=== PATIENT | male | born 1960 | race Caucasian/White ===

== ENCOUNTER 2016-07-20 13:26 | Emergency (ER) | payer MEDICAID, OTHER, SELFPAY ==
[~2016-07-20] VITALS: Ht 170.2 cm; Wt 74.8 kg
[2016-07-20] MEDS ORDERED: NS 1,000 ML IV SCH (13:42)
[2016-07-20 14:27] LABS: VENOUS BASE EXCESS -4.7 (-2.0-2.0); VENOUS O2 SATURATION 40.7 % (60.0-80.0); VENOUS PARTIAL PRESSURE CO2 44.3 mmHg (38.0-50.0); VENOUS PARTIAL PRESSURE O2 25.4 mmHg (30.0-50.0); VENOUS STANDARD HCO3 19.1 MEQ/L
[2016-07-20 14:43] LABS: BASO % 0.5 % (0.0-1.0); EOS % 0.8 % (0.0-3.0); LARGE UNSTAINED CELL # 0.1 K/mm3 (0.0-0.4); LARGE UNSTAINED CELL % 1.2 % (0.0-4.0); LYMPH # 1.1 K/mm3 (1.5-4.5); LYMPH % 15.4 % (24.0-44.0); MEAN CORPUSCULAR HEMOGLOBIN 32.9 pg (27.0-33.0); MEAN CORPUSCULAR HGB CONC 33.9 g/dl (32.0-36.5); MONO # 0.4 K/mm3 (0.0-0.8); MONO % 5.6 % (0.0-5.0); NEUTROPHILS # 5.3 K/mm3 (1.8-7.7); NEUTROPHILS % 76.5 % (36.0-66.0); PLATELET COUNT, AUTOMATED 146 k/mm3 (150-450); RED CELL DISTRIBUTION WIDTH 12.8 % (11.5-14.5)
[2016-07-20 14:57] LABS: ALBUMIN 3.7 GM/DL (3.2-5.2); ALKALINE PHOSPHATASE 118 U/L (45-117); ALT/SGPT 65 U/L (12-78); ANION GAP 14 MEQ/L (8-16); AST/SGOT 68 U/L (15-37); BILIRUBIN,DIRECT 0.5 MG/DL (0.0-0.2); BLOOD UREA NITROGEN 16 MG/DL (7-18); CALCIUM LEVEL 9.7 MG/DL (8.5-10.1); CARBON DIOXIDE LEVEL 22 MEQ/L (21-32); CHLORIDE LEVEL 103 MEQ/L (98-107); CREATININE FOR GFR 0.82 MG/DL (0.70-1.30); GLOMERULAR FILTRATION RATE > 60.0 (>56); GLUCOSE, FASTING 86 MG/DL (70-105); SODIUM LEVEL 139 MEQ/L (136-145); TOTAL PROTEIN 7.4 GM/DL (6.4-8.2)
--- NOTE | 2016-07-20 15:13 | ECGEPIP ---
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
[2016-07-20] MEDS ORDERED: dexameTHASONE 20 MG/5 ML VIAL (J1100) IV ONE (15:15)
[2016-07-20] MEDS ORDERED: FAMOTIDINE IV BAG 20 MG in APPROPRIATE DILUENT 1 EA IV ONE (15:15)
--- NOTE | 2016-07-20 15:15 | CR.PDOC ---
General Reason for Consultation/CC The patient is a 56-year-old male admitted with a reason for visit of Unresponsive. History of Present Illness HISTORY OF PRESENT ILLNESS: Neurosurgery service has been called to assess 56 yo male well-known to the ED from previous visits for mass lesion in his cerebellum. Patient was found today on the floor unconscious. Patient has no complaints and would like to be discharged home. ALLERGIES: Please see below. HOME MEDICATIONS: Please see below. SOCIAL HISTORY: Marital status and/or living arrangements: lives alone, no family nearby Employment: on disability PHYSICAL EXAMINATION: VITAL SIGNS: Please see below. GENERAL APPEARANCE: cachetic, unkempt, and disheveled. NEUROLOGICAL: alert an oriented x3. Normal speech. KHADAR. Able to move all his limbs. Rest of exam is difficult to perform because of uncooperative patient. LABORATORY DATA: Please see below. NEUROIMAGING: noncontrast CT of brain showed around 3cm mass lesion in R cerebellum hemisphere with significant mass effect and edema and deviation of the 4th ventricle. There is a hydrocephalus compared to his previous CT scan. CXR: There are multiple nodular lesions. IMPRESSION: 1. Cerebellar metastasis 2. Obstructive hydrocephalus PLAN/RECOMMENDATIONS: Admit to ICU Consult hospitalist for medical management. MRI with and without contrast with stealth protocol (specifically 1 mm slices, please). Decadron 10 mg IV x1, followed by 4mg IV q8 hrs Ranitidine 150mg PO BID Zofran 4mg IV q [address] chest and abd with and without contrast for staging. Explained to the patient neuroimaging findings and proposed for him managed plan as above. The patient declined any help and wants to go home at this time. Suggestion: social media strategist consult and psych consult to assess mental competency and depression. Thank you for the consultation. Dr Irena Morse, RPA-C Vital Signs/I&O Vital Signs Date Time Temp Pulse Resp B/P (MAP) Pulse Ox O2 Delivery O2 Flow Rate FiO2 07/20/16 13:59 97.8 88 20 153/99 (117) 96 Room Air Laboratory Data 24H Labs Laboratory Tests 2 07/20/16 14:09: White Blood Count 7.0, Red Blood Count 4.97, Hemoglobin 16.3, Hematocrit 48.2, Mean Corpuscular Volume 97.0H, Mean Corpuscular Hemoglobin 32.9, Mean Corpuscular Hemoglobin Concent 33.9, Red Cell Distribution Width 12.8, Platelet Count 146L, Neutrophils (%) (Auto) 76.5H, Lymphocytes (%) (Auto) 15.4L, Monocytes (%) (Auto) 5.6H, Eosinophils (%) (Auto) 0.8, Basophils (%) (Auto) 0.5 , Neutrophils # (Auto) 5.3, Lymphocytes # (Auto) 1.1L, Monocytes # (Auto) 0.4, Eosinophils # (Auto) 0.0, Basophils # (Auto) 0.0, Large Unclassified Cells % 1.2 , Large Unclassified Cells # 0.1, Blood Gas Bicarbonate Standard 19.1, Venous Blood pH 7.306L, Venous Blood Partial Pressure CO2 44.3, Venous Blood Partial Pressure O2 25.4L, Venous Blood Total Carbon Dioxide 23.0L, Venous Blood HCO3 21.6L, Venous Blood Oxygen Saturation 40.7L, Venous Blood Base Excess -4.7L, Lactic Acid Level 1.5, Ammonia < 10 CBC/BMP Laboratory Tests 07/20/16 14:09 Red Blood Count 4.97, Mean Corpuscular Volume 97.0 H, Mean Corpuscular Hemoglobin 32.9, Mean Corpuscular Hemoglobin Concent 33.9, Red Cell Distribution Width 12.8, Neutrophils (%) (Auto) 76.5 H, Lymphocytes (%) (Auto) 15.4 L, Monocytes (%) (Auto) 5.6 H, Eosinophils (%) (Auto) 0.8, Basophils (%) ( Auto) 0.5, Neutrophils # (Auto) 5.3, Lymphocytes # (Auto) 1.1 L, Monocytes # ( Auto) 0.4, Eosinophils # (Auto) 0.0, Basophils # (Auto) 0.0 Microbiology Microbiology 07/20/16 Blood Culture, Received Pending Allergies Coded Allergies: No Known Allergies (Unverified , 07/20/16) LIANET MORSE PA-C July 20, 2016 15:15
[2016-07-20 16:06] VITALS: BP 167/91
[2016-07-20] MEDS ORDERED: DEXA4TA PO (16:07)
[2016-07-20] MEDS ORDERED: RANI75TA9 PO (16:07)
--- NOTE | 2016-07-20 16:24 | REP ---
CT study of the brain without contrast: History: Altered mental status. Comparison CT study is from 09/30/2014. CT findings: There is a large mass in the posterior fossa in the right mid cerebellum. This mass lesion measures 4.0 x 3.3 x 3.2 cm.. There is surrounding vasogenic edema. There is considerable mass effect in the posterior fossa. Displacement of the fourth ventricle to the left and narrowing of the fourth ventricle. The bill is compressed from posterior. There is upward transtentorial herniation at the tentorial notch. The vermis is displaced quite a bit to the left. There is no evidence of hemorrhage. At the midbrain there is some subtle mass effect on the quadrigeminal plate cistern which is effaced on the right. There is new hydrocephalus with moderate dilation of the lateral and third ventricles and some periventricular low density consistent with transependymal resorption adjacent to the lateral ventricles is seen. No other intracranial mass lesion is evident. There is some diffuse cerebral atrophy as before. Vascular calcification is noted. There are mucosal thickening changes in the sphenoid, right maxillary, and to a lesser extent ethmoid sinuses. No bony calvarial lesion is seen. Impression: New 4 cm mass in the right cerebellum with considerable posterior fossa mass effect and obstructive hydrocephalous and evidence of upward transtentorial herniation. No evidence of hemorrhage or infarction. Primary versus metastatic malignancy suspected. The findings were telephoned to the referring provider at the time of this dictation. Signed by Jeyson Riojas MD 07/20/2016 04:41 P
--- NOTE | 2016-07-20 16:26 | REP ---
Portable chest x-ray: Sitting AP view: History: Altered mental status. Comparison study: 02/27/2016. Findings: EKG monitoring electrodes overlie the chest. The heart is not enlarged. The aorta is slightly tortuous. The left lung is clear. On the right there is a hazy new opacity overlying the anterior first thoracic rib. I suspect infiltrate or mass lesion in the right apex. Right lung is otherwise clear. Impression: Hazy opacity in the right lung apex, question mass lesion over lying of the right first rib. Otherwise no acute disease. Signed by Jeyson Riojas MD 07/20/2016 04:41 P
== END 2016-07-20 16:42 | disposition left against medical advice (07) ==
LOC: M ED 14:24
DX: C34.90 Malignant neoplasm of unspecified part of unspecified bronchus or lung (principal); G93.9 Disorder of brain, unspecified; F17.200 Nicotine dependence, unspecified, uncomplicated

== ENCOUNTER 2016-08-20 13:26 | Emergency (ER) | payer MEDICAID, OTHER, SELFPAY ==
[~2016-08-20] VITALS: Ht 170.2 cm; Wt 77.1 kg
[~2016-08-20 13:26] MED LIST: DEXA4TA PO; RANI75TA9 PO
[2016-08-20 15:01] LABS: MEAN CORPUSCULAR HEMOGLOBIN 33.2 pg (27.0-33.0); MEAN CORPUSCULAR HGB CONC 34.2 g/dl (32.0-36.5); MEAN CORPUSCULAR VOLUME 97.1 fl (80.0-96.0); RED CELL DISTRIBUTION WIDTH 13.5 % (11.5-14.5); WHITE BLOOD COUNT 6.3 K/mm3 (4.0-10.0)
[2016-08-20 15:20] LABS: ALBUMIN 3.5 GM/DL (3.2-5.2); ALKALINE PHOSPHATASE 126 U/L (45-117); ALT/SGPT 47 U/L (12-78); ANION GAP 9 MEQ/L (8-16); AST/SGOT 45 U/L (15-37); BILIRUBIN,DIRECT 0.5 MG/DL (0.0-0.2); BILIRUBIN,TOTAL 1.1 MG/DL (0.2-1.0); BLOOD UREA NITROGEN 28 MG/DL (7-18); CALCIUM LEVEL 9.7 MG/DL (8.5-10.1); CARBON DIOXIDE LEVEL 28 MEQ/L (21-32); CHLORIDE LEVEL 99 MEQ/L (98-107); CREATININE FOR GFR 0.87 MG/DL (0.70-1.30); GLOMERULAR FILTRATION RATE > 60.0 (>56); GLUCOSE, FASTING 94 MG/DL (70-105); POTASSIUM SERUM 3.8 MEQ/L (3.5-5.1); SODIUM LEVEL 136 MEQ/L (136-145)
--- NOTE | 2016-08-20 15:48 | REP ---
CT HEAD WITHOUT CONTRAST: HISTORY: Dizziness. COMPARISON: 07/20/2016. A mixed density hypo and slightly hyperdense mass is present in the right cerebellum. The mass measures 4.4 cm in transverse by 3.5 cm in AP dimensions and is slightly increased in size compared to the previous study. Surrounding edema is present. There is mass effect with partial effacement of the fourth ventricle. The is displacement of the fourth ventricle to the left. There is partial effacement of the left quadrigeminal plate cistern consistent with upward transtentorial herniation. Areas of decreased attentuation are present in the periventricular white matter. This represents small vessel ischemic disease. There is dilatation of the third and lateral ventricles consistent with mild hydrocephalus. The cortical sulci are dilated consistent with mild volume loss. There is no extracerebral collection. The visualized sinuses are clear. IMPRESSION: There has been a slight increase in size of the right cerebellar mass compared to the previous study. There is mass effect with upward transtentorial herniation and mild hydrocephalus. This is unchanged compared to the previous study. Signed by Weston Wynn MD 08/20/2016 04:14 P
[2016-08-20 16:00] VITALS: BP 159/72
== END 2016-08-20 16:33 | disposition left against medical advice (07) ==
LOC: EDBD 13:26 → M ED 15:01
DX: G93.9 Disorder of brain, unspecified (principal); R42 Dizziness and giddiness; W19.XXXA Unspecified fall, initial encounter; Y92.014 Private driveway to single-family (private) house as the place of occurrence of the external cause; Y93.89 Activity, other specified; Y99.8 Other external cause status; R20.0 Anesthesia of skin; F99 Mental disorder, not otherwise specified; F17.210 Nicotine dependence, cigarettes, uncomplicated; F19.10 Other psychoactive substance abuse, uncomplicated

== ENCOUNTER 2016-08-22 16:13 | Inpatient (IN) | payer MEDICAID, OTHER, SELFPAY ==
[~2016-08-22] VITALS: Ht 170.2 cm; Wt 61.2 kg
[2016-08-22] MEDS ORDERED: ONDANSETRON 4MG/2ML VIAL (J2405) IV ONE (18:00)
[2016-08-22] MEDS ORDERED: fentaNYL 100 MCG/2 ML INJECTION (J3010) IV ONE (18:00)
[2016-08-22 18:07] LABS: ANION GAP 8 MEQ/L (8-16); BLOOD UREA NITROGEN 11 MG/DL (7-18); CALCIUM LEVEL 9.4 MG/DL (8.5-10.1); CARBON DIOXIDE LEVEL 30 MEQ/L (21-32); CHLORIDE LEVEL 98 MEQ/L (98-107); CREATININE FOR GFR 0.72 MG/DL (0.70-1.30); GLOMERULAR FILTRATION RATE > 60.0 (>56); GLUCOSE, FASTING 101 MG/DL (70-105); POTASSIUM SERUM 3.9 MEQ/L (3.5-5.1); SODIUM LEVEL 136 MEQ/L (136-145)
[2016-08-22 18:10] LABS: BASO % 0.6 % (0.0-1.0); EOS # 0.1 K/mm3 (0.0-0.50); EOS % 1.1 % (0.0-3.0); LARGE UNSTAINED CELL # 0.1 K/mm3 (0.0-0.4); LARGE UNSTAINED CELL % 1.7 % (0.0-4.0); LYMPH # 1.4 K/mm3 (1.5-4.5); LYMPH % 17.9 % (24.0-44.0); MEAN CORPUSCULAR HEMOGLOBIN 33.4 pg (27.0-33.0); MEAN CORPUSCULAR HGB CONC 35.1 g/dl (32.0-36.5); MEAN CORPUSCULAR VOLUME 95.3 fl (80.0-96.0); MONO # 0.5 K/mm3 (0.0-0.8); MONO % 7.8 % (0.0-5.0); NEUTROPHILS # 4.9 K/mm3 (1.8-7.7); NEUTROPHILS % 70.9 % (36.0-66.0); PLATELET COUNT, AUTOMATED 236 k/mm3 (150-450); RED CELL DISTRIBUTION WIDTH 13.7 % (11.5-14.5)
[2016-08-22] MEDS ORDERED: ISOVUE-370 76% 100ML VIAL (Q9967) As Ordered ONE (18:21)
--- NOTE | 2016-08-22 19:30 | REPUSA ---
CLINICAL HISTORY: Cerebellar mass. TECHNIQUE: Multiple axial CT images were obtained through the brain without IV contrast material. COMPARISON: Comparison is made with a prior study dated 08/20/2016. COMMENTS: Note again is made of a right cerebellar mass measuring 4 x 3.5 cm with large amount of vasogenic lexi ma and significant local mass effect with compression of 4th ventricle. Lateral ventricles and fourth ventricle are dilated which is likely due to obstructed hydrocephalus. There is normal configuration of sella turcica. There are no intra or extra-axial collections. Ther e is no evidence of hematoma formation. No abnormal calcifications are present. There is diffuse age-appropriate cerebellar and cerebral atrophy with proportionally dilated ventricl es and cortical sulci. There are bilateral confluent periventricular and subcortical white matter hypolucencies compatible w ith chronic microvascular disease. IMPRESSION: 1. Note again is made of a right cerebellar mass measuring 4 x 3.5 cm with large amount of vasogenic edema and mass effect with compression of 4th ventricle. 2. Lateral ventricles and fourth ventricle are dilated which is likely due to obstructed hydrocephal us. 3. There is diffuse generalized parenchymal atrophy and chronic microvascular disease. 3. No significant interval change. Thank you for your kind referral of this patient. We appreciate the opportunity to participate in thi s patient's care.
--- NOTE | 2016-08-22 22:50 | REPUSA ---
CLINICAL HISTORY: History of brain carcinoma. TECHNIQUE: Multiple incremental axial, coronal and oblique images are obtained from the thoracic inle t to the upper abdomen. Intravenous contrast material was administered as per pulmonary embolism prot ocol. COMMENTS: There is excellent opacification of pulmonary arterial system without evidence for pulmonary embolism . Aorta is of normal caliber without evidence for dissection or aneurysm. There is a severe scattered upper lobe predominant emphysema is seen. There is a spiculated nodule of speculated mass noted in the right lung apex measuring approximately 2.0 x 1.5 cm, highly suspicious for malignancy. There is mild bilateral hilar lymphadenopathy noted. There is no evidence of pleural or parenchymal mass. There are no pleural effusions. The heart and great vessels are within normal limits. Images of the upper abdomen demonstrate no evidence of adrenal mass. The bony structures are free of lytic or blastic lesions. IMPRESSION: 1. No evidence for pulmonary embolism. 2. Severe scattered upper lobe predominant emphysema is seen. There is a spiculated nodule of specu lated mass noted in the right lung apex measuring approximately 2.0 x 1.5 cm, highly suspicious for m alignancy. Consider further evaluation with PET CT. 3. There is mild bilateral hilar lymphadenopathy noted. Thank you for your kind referral of this patient. We appreciate the opportunity to participate in th is patient's care.
--- NOTE | 2016-08-22 22:50 | REPUSA ---
HISTORY: Cerebellar mass. TECHNIQUE: Pre- and post contrast MR study of the brain was performed. COMPARISON: CT study of the brain done earlier this evening. FINDINGS: There is a peripherally enhancing mass in the right cerebellar hemisphere. Central necrosis is prese nt. The mass measures, based upon the borders of enhancement, approximately 4.3 cm right to left, ap proximately 3.4 cm superiorly to inferiorly and approximately 4 cm AP. The mass is thought to more l ikely be due to metastatic disease than a primary cerebellar neoplasm Regional mass effect is presen t. There is surrounding vasogenic edema. Mild upward transtentorial herniation is present. The fou rth ventricle is compressed and displaced. There is shift of the cerbellar vermis to the left of mid line. Mild right cerebellar tonsillar herniation is present. There is evidence of moderate hydrocep halus with dilatation of the lateral and third ventricles. The cerebral aqueduct is also dilated. Periventricular T2 hyperintensity is shown. It is nonspecific. Such periventricular T2 hyperintensi ty could reflect chronic ischemic small vessel white matter change. However, given evidence of hydro cephalus, it may reflect transependymal CSF migration related to the obstructive hydrocephalus. A sm all amount of nonspecific T2 hyperintensity is present within the bill. It could reflect chronic isc hemic white matter change and/or edema. Edema from the right cerebellar mass extends into the right c erebellar peduncles. There is some compression and distortion of the brainstem. There is reduction in the size of the pre-pontine cistern, related to anterior displacement of the brainstem. No findings suspicious for acute brain infarction are identified. There is no evidence of a subdural hematoma. No evidence of metastatic disease is identified supratentorially. No evidence of dural s inus thrombosis is identified. No abnormal meningeal enhancement is seen. Areas of mild sinus mucosal thickening are present. The flow voids for the intracranial carotid [place] and the basilar artery are present. No abnormal intraconal or extraconal soft tissue masses are seen in the orbits. Deviation of the nasal septum is incidentally noted. IMPRESSION: 1. Right cerebellar mass lesion, thought to most likely be due to metastatic disease. 2. Regional mass effect with surrounding vasogenic edema. 3. Obstructive hydrocephalus. 4. Mild upward transtentorial herniation and right cerebellar tonsillar herniation. Thank you for your kind referral of this patient. We appreciate the opportunity to participate in thi s patient's care.
--- NOTE | 2016-08-22 23:20 | REPUSA ---
CLINICAL HISTORY: Brain CA. No medicare. TECHNIQUE: Multiple axial CT images were obtained through the abdomen and pelvis after administratio n of intravenous contrast material. COMMENTS: The liver demonstrates 6 mm hypodensity at the dome which may represent small cyst vs hemangioma. It is otherwise of uniform attenuation without mass or defect. The gallbladder is within normal limits. There is no intrahepatic or extrahepatic biliary ductal dilatation. The spleen is normal. The [place] is of normal contour and attenuation characteristics. Both kidneys demonstrate prompt and equal nephrograms. The kidneys are normal in size, shape and con figuration. There is no evidence of renal or ureteral mass. No renal or ureteral calculi are identi fied. There is no hydroureter or hydronephrosis. No evidence for appendicitis. There is evidence of circumferential wall thickening along the duodenu m and jejunum compatible with enteritis. Small fat containing umbilical hernia is seen. No evidence for small or large bowel obstruction. Sigmoid diverticulosis is seen. No evidence of diverticuliti s. There is no evidence of abdominal ascites or lymphadenopathy. There is no evidence of intrinsic or extrinsic bladder mass. There is no pelvic ascites or lymphaden opathy. The bony structures are free of lytic or blastic lesions. Prostate gland is moderately enlarged contains calcification in its base. IMPRESSION: 1. Evidence of circumferential wall thickening along the duodenum and jejunum compatible with enterit is. 2. Small fat containing umbilical hernia is seen. 3. Sigmoid diverticulosis. 4. 6 mm hypodensity at the hepatic dome which may represent small cyst vs hemangioma. Thank you for your kind referral of this patient. We appreciate the opportunity to participate in thi s patient's care.
[2016-08-22] MEDS ORDERED: IPRATROPIUM 0.5MG/ALBUTEROL 2.5MG INH SOL UD 3ML (DUONEB)(J7620) NEB ONE (23:45)
[2016-08-23] VITALS (20 sets, daily range): BP systolic 83–163; BP diastolic 58–158
[2016-08-23] MEDS ORDERED: ONDANSETRON 4MG/2ML VIAL (J2405) IV PRN (01:00)
[2016-08-23] MEDS ORDERED: ACETAMINOPHEN TAB 650MG DOSE (2X325MG) PO PRN (01:00)
[2016-08-23] MEDS ORDERED: dexameTHASONE 20 MG/5 ML VIAL (J1100) As Ordered ONE (01:14)
[2016-08-23] MEDS: dexameTHASONE 20 MG/5 ML VIAL (J1100) IV ONE ×2 (01:20→02:00)
[2016-08-23] MEDS ORDERED: dexameTHASONE 20 MG/5 ML VIAL (J1100) IV ONE (02:15)
[2016-08-23] MEDS ORDERED: HEPARIN SOD (PORCINE) 5000 UNITS/ML VIAL SC SCH (06:00)
--- NOTE | 2016-08-23 07:06 | HPEPDOC ---
General Date of Admission Aug 23, 2016 at 00:59 Other Providers None Attending Physician: JM THEODORE MD Chief Complaint The patient is a 56-year-old male admitted with a reason for visit of Altered Mental State,Neoplam Of Brain. Source: Patient Exam Limitations: No limitations Timing/Duration: Week(s) Severity: Severe Associated Symptoms: Loss of appetite, Malaise History of Present Illness 56-year-old male with no PCP and no home medications presented to the emergency room for mental confusion. He had this intermittently for past couple of weeks and getting generalized weakness, lethargic. Home Medications No Active Prescriptions or Reported Meds Allergies Coded Allergies: No Known Allergies (Unverified , 07/20/16) Past Medical History Medical History None Surgical History Leg surgery Family History Significant Family History: No pertinent family hx Social History * Smoker: less than 1 pack/day Alcohol: heavy Drugs: marijuana Recent Travel/Sick Contacts: Denies: Recent travel, Recent sick contacts Review of Symptoms Constitutional: Reports: Malaise, Weakness, Fatigue, Weight Loss, Lethargy, Denies: Chills, Fever, Night Sweats Eyes: Denies: Pain, Vision change ENT: Reports: Head Aches, Denies: Ear Pain, Dysphagia Skin: Denies: Rash, Lesions, Breakdown Pulmonary: Denies: Dyspnea, Cough Cardiovascular: Denies: Chest Pain, Palpitations, Orthopnea, Paroxysmal Noc. Dyspnea, Lt Headedness Gastrointestinal: Denies: Nausea, Vomiting, Abdominal Pain, Diarrhea Genitourinary: Denies: Dysuria, Frequency, Incontinence, Retention Hematologic: Denies: Bruising, Bleeding Excessively Musculoskeletal: Denies: Neck Pain, Back Pain, Joint Pain, Muscle Pain, Spasms Neurological: Denies: Weakness, Numbness, Change in speech, Confusion Psych: Reports: Mood Normal, Denies: Depression, Memory Issues Physical Examination General Exam: Positive: Alert, No Acute Distress Eye Exam: Positive: PERRLA, Conjunctiva & lids normal, EOMI, Negative: Sclera icteric ENT Exam: Positive: Atraumatic, Mucous membr. moist/pink Neck Exam: Positive: Supple, Negative: JVD, thyromegaly Chest Exam: Positive: Clear to auscultation, Normal air movement Heart Exam: Positive: Rate Normal, Regular Rhythm, Normal S1, Normal S2, Negative: Murmurs, Rubs Telemetry: Positive: No significant arrhythmia Abdomen Exam: Positive: Normal bowel sounds, Soft, Negative: Tenderness, Hepatospenomegaly Extremity Exam: Positive: Normal pulses, Negative: Clubbing, Cyanosis, Edema Skin Exam: Positive: Nl turgor and temperature, Negative: Breakdown, Lesion Neuro Exam: Positive: Normal Gait, Normal Speech Psych Exam: Positive: Other (not oriented poorly following commands) Vital Signs Vital Signs Date Time Temp Pulse Resp B/P (MAP) Pulse Ox O2 Delivery O2 Flow Rate FiO2 08/23/16 06:01 80 12 115/63 (80) 95 Room Air 08/23/16 04:01 98.1 Laboratory Data Labs 24H Laboratory Tests 2 08/22/16 16:46: White Blood Count 7.0, Red Blood Count 4.87, Hemoglobin 16.3, Hematocrit 46.4, Mean Corpuscular Volume 95.3, Mean Corpuscular Hemoglobin 33.4H, Mean Corpuscular Hemoglobin Concent 35.1, Red Cell Distribution Width 13.7, Platelet Count 236, Neutrophils (%) (Auto) 70.9H, Lymphocytes (%) (Auto) 17.9L, Monocytes (%) (Auto) 7.8H, Eosinophils (%) (Auto) 1.1, Basophils (%) (Auto) 0.6 , Neutrophils # (Auto) 4.9, Lymphocytes # (Auto) 1.4L, Monocytes # (Auto) 0.5, Eosinophils # (Auto) 0.1, Basophils # (Auto) 0.0, Large Unclassified Cells % 1.7 , Large Unclassified Cells # 0.1, Anion Gap 8, Glomerular Filtration Rate > 60.0 , Blood Urea Nitrogen 11#, Creatinine 0.72, Sodium Level 136, Potassium Level 3.9, Chloride Level 98, Carbon Dioxide Level 30, Calcium Level 9.4 CBC/BMP Laboratory Tests 08/22/16 16:46 Red Blood Count 4.87, Mean Corpuscular Volume 95.3, Mean Corpuscular Hemoglobin 33.4 H, Mean Corpuscular Hemoglobin Concent 35.1, Red Cell Distribution Width 13.7, Neutrophils (%) (Auto) 70.9 H, Lymphocytes (%) (Auto) 17.9 L, Monocytes (% ) (Auto) 7.8 H, Eosinophils (%) (Auto) 1.1, Basophils (%) (Auto) 0.6, Neutrophils # (Auto) 4.9, Lymphocytes # (Auto) 1.4 L, Monocytes # (Auto) 0.5, Eosinophils # (Auto) 0.1, Basophils # (Auto) 0.0, Calcium Level 9.4 Assessment/Plan 56-year-old male with an obesity and no home medications presented with altered mental status upon to have muscle in the lung and the brain Problems (1) Tobacco abuse Problem Text: Continue with nicotine patch (2) Alcohol withdrawal Problem Text: Continuously CIWA protocol (3) Neoplasm of brain causing mass effect on adjacent structures Status: Acute Problem Text: CT scan of the brain showed large cerebellar mass 4 x 2.5 cm encompassing fourth ventricle. The vasogenic edema and mass effect. Neurosurgery was consulted. Patient was started on IV Decadron and will be taken to the OR for decompression (4) Lung cancer Problem Text: Follow-up oncology Plan / VTE VTE Prophylaxis Ordered?: Yes Plan IVF: Initiate Diet: Continue Current Activity: Continue Current Anticipated Discharge: Home KYRA WHALEY MD Aug 23, 2016 07:06
[2016-08-23] MEDS ORDERED: LORazepam 2 MG TAB PO PRN (07:15)
[2016-08-23] MEDS: NICOTINE 14 MG/24 HR TRANSDERMAL TD SCH (08:59)
[2016-08-23] MEDS: MULTIVITAMINS/MINERALS THERAP 1 TAB PO SCH (09:00)
[2016-08-23] MEDS: THIAMINE 100 MG TAB PO SCH ×2 (09:00→21:02)
[2016-08-23] MEDS: FOLIC ACID 1 MG TAB PO SCH (09:00)
[2016-08-23] MEDS ORDERED: SLF 3 ML SYR IV PRN (09:15)
[2016-08-23] MEDS: SLF 3 ML SYR IV SCH ×2 (14:00→21:02)
[2016-08-24] VITALS (25 sets, daily range): BP systolic 123–174; BP diastolic 57–88
[2016-08-24 05:10] LABS: MEAN CORPUSCULAR HEMOGLOBIN 33.5 pg (27.0-33.0); MEAN CORPUSCULAR HGB CONC 35.4 g/dl (32.0-36.5); MEAN CORPUSCULAR VOLUME 94.7 fl (80.0-96.0); RED CELL DISTRIBUTION WIDTH 13.5 % (11.5-14.5); WHITE BLOOD COUNT 9.7 K/mm3 (4.0-10.0)
[2016-08-24] MEDS: SLF 3 ML SYR IV SCH ×3 (05:18→20:01)
[2016-08-24 05:37] LABS: ALBUMIN 2.6 GM/DL (3.2-5.2); ALBUMIN/GLOBULIN RATIO 0.81 (1.00-1.93); ALKALINE PHOSPHATASE 90 U/L (45-117); ALT/SGPT 29 U/L (12-78); ANION GAP 7 MEQ/L (8-16); AST/SGOT 19 U/L (15-37); BILIRUBIN,TOTAL 0.4 MG/DL (0.2-1.0); BLOOD UREA NITROGEN 18 MG/DL (7-18); CARBON DIOXIDE LEVEL 28 MEQ/L (21-32); CHLORIDE LEVEL 102 MEQ/L (98-107); CREATININE FOR GFR 0.64 MG/DL (0.70-1.30); GLOMERULAR FILTRATION RATE > 60.0 (>56); GLUCOSE, FASTING 147 MG/DL (70-105); POTASSIUM SERUM 4.1 MEQ/L (3.5-5.1); SODIUM LEVEL 137 MEQ/L (136-145); TOTAL PROTEIN 5.8 GM/DL (6.4-8.2)
[2016-08-24] MEDS: THIAMINE 100 MG TAB PO SCH ×2 (08:59→20:00)
[2016-08-24] MEDS: MULTIVITAMINS/MINERALS THERAP 1 TAB PO SCH (08:59)
[2016-08-24] MEDS: NICOTINE 14 MG/24 HR TRANSDERMAL TD SCH (08:59)
[2016-08-24] MEDS: FOLIC ACID 1 MG TAB PO SCH (08:59)
--- NOTE | 2016-08-24 12:12 | IPNPDOC ---
Date Seen The patient was seen on 08/24/16. Progress Note SUBJECTIVE: Patient reports that he is feeling better, he tells me that he is clear mentally he is awake alert he is oriented to person place and situation. Otherwise at this time the patient denies any specific complaints OBJECTIVE PHYSICAL EXAMINATION: VITAL SIGNS: Please see below. GENERAL: Disheveled man sitting up in bed eating breakfast she does not appear to be in acute distress HEENT: Pupils equally round reactive to light he has moist mucous membranes elevation CVP CARDIOVASCULAR: S 1 S2 regular. RESPIRATORY: Clear to auscultation. ABDOMINAL: All sounds present abdomen soft EXTREMITIES: No clubbing cyanosis or edema NEUROLOGICAL: Documented ataxia cerebellar findings needs assistance with walking LABORATORY DATA: Please see below. MICROBIOLOGY: Please see below. IMAGING: Brain MRI: 1. Right cerebellar mass lesion, thought to most likely be due to metastatic disease. 2. Regional mass effect with surrounding vasogenic edema. 3. Obstructive hydrocephalus. 4. Mild upward transtentorial herniation and right cerebellar tonsillar herniation. CT angiography of the chest:1. No evidence for pulmonary embolism. 2. Severe scattered upper lobe predominant emphysema is seen. There is a spiculated nodule of speculated mass noted in the right lung apex measuring approximately 2.0 x 1.5 cm, highly suspicious for malignancy. Consider further evaluation with PET CT. 3. There is mild bilateral hilar lymphadenopathy noted. CT of the abdomen and pelvis:1. Evidence of circumferential wall thickening along the duodenum and jejunum compatible with enteritis. 2. Small fat containing umbilical hernia is seen. 3. Sigmoid diverticulosis. 4. 6 mm hypodensity at the hepatic dome which may represent small cyst vs hemangioma. CT scan of the head:1. Note again is made of a right cerebellar mass measuring 4 x 3.5 cm with large amount of vasogenic edema and mass effect with compression of 4th ventricle. 2. Lateral ventricles and fourth ventricle are dilated which is likely due to obstructed hydrocephalus. 3. There is diffuse generalized parenchymal atrophy and chronic microvascular disease. 3. No significant interval change. DVT prophylaxis ordered?: Teds and sequentials ASSESSMENT AND PLAN: This is a 56-year-old man with brain mass highly concerning for metastatic lung cancer. PROBLEMS: 1. Brain mass: Highly concerning for metastatic lung cancer I did a lengthy discussion yesterday with an today with the patient as well as his brother I have discussed the case with Dr. Tadeo and Dr. Flores is well. The patient has previously signed himself out from the emergency room on 2 previous occasions knowing that he had a brain mass concerning for cancer, at this time he is agreed to remain admitted in the hospital and today appears to understand where he is and what is going on around him verbalizing to me that he is in the hospital in [place] because he has what is likely cancer in his brain. The patient tells me that he wants to fight and he wants undergo treatment. I do question the patient's ability to adhere to medical therapies given his long history of alcohol abuse and reported history of substance abuse the patient has no primary care provider has not shown keen interest in his health up until this point to undergo neurosurgical intervention and likely undergo radiation chemotherapy the importance of follow-up and strict adherence has been stressed and the patient reportedly today that he is agreeable and prepared to do this. Dr. Tadeo's will see the patient consultation Dr. Melara we will discuss operative intervention further with the patient and his brother. The patient expressed me his wishes to be a DNR/DNI and as such her most form was completed and placed in the chart. For the time being the patient remains on Decadron as per Dr. Flores's recommendations. Perioperative management will defer to neurosurgery. Given there is evidence of herniation I suspect she would benefit from intervention sooner rather than later 2. Left hip wound: Likely from lying down unconscious on the left side for significant amount of time wound care help is greatly greatly appreciated. Continue with collagenase 3. Alcohol abuse: Sling counseling offered the patient is currently on thiamine and folic acid and a multivitamin we're monitoring him for withdrawal symptoms or he has not exhibited any up until this point. 4. Tobacco abuse: Cessation counseling offered the patient is using a NicoDerm patch at this time 5. Substance abuse: Cessation counseling offered DISPOSITION: We'll continue to attempt to coordinate appropriate care possible surgical intervention with outpatient hematology oncology follow-up and likely radiation therapy referral. VS, I&O, 24H, Fishbone Vital Signs/I&O Vital Signs Date Time Temp Pulse Resp B/P (MAP) Pulse Ox O2 Delivery O2 Flow Rate FiO2 08/24/16 08:00 76 156/84 08/24/16 08:00 97.7 16 98 Room Air I&O- Last 24 Hours up to 6 AM 08/24/16 06:00 Intake Total 1260 ml Output Total 300 ml Balance 960 ml Laboratory Data 24H LABS Laboratory Tests 2 08/24/16 04:52: Anion Gap 7L, Glomerular Filtration Rate > 60.0, Blood Urea Nitrogen 18#, Creatinine 0.64L, Sodium Level 137, Potassium Level 4.1, Chloride Level 102, Carbon Dioxide Level 28, Calcium Level 9.0, Aspartate Amino Transf (AST/SGOT) 19 , Alanine Aminotransferase (ALT/SGPT) 29, Alkaline Phosphatase 90, Total Bilirubin 0.4, Total Protein 5.8L, Albumin 2.6L, Albumin/Globulin Ratio 0.81L 08/24/16 08:25: Urine Amphetamines Screen NEGATIVE, Urine Benzodiazepines Screen NEGATIVE, Urine Opiates Screen NEGATIVE, Urine Methadone Screen NEGATIVE, Urine Barbiturates Screen NEGATIVE, Urine Phencyclidine Screen NEGATIVE, Urine Cocaine Metabolite Screen NEGATIVE, Urine Cannabinoids Screen NEGATIVE CBC/BMP Laboratory Tests 08/24/16 04:52 Red Blood Count 4.15 L, Mean Corpuscular Volume 94.7, Mean Corpuscular Hemoglobin 33.5 H, Mean Corpuscular Hemoglobin Concent 35.4, Red Cell Distribution Width 13.5, Calcium Level 9.0, Aspartate Amino Transf (AST/SGOT) 19 , Alanine Aminotransferase (ALT/SGPT) 29, Alkaline Phosphatase 90, Total Bilirubin 0.4, Total Protein 5.8 L, Albumin 2.6 L JM THEODORE MD Aug 24, 2016 12:12
[2016-08-24] MEDS: SANTYL OINT 30GM TOP SCH (13:22)
--- NOTE | 2016-08-24 19:49 | CR ---
DATE OF CONSULTATION: 08/23/2016 REASON FOR CONSULTATION: Right cerebellar mass lesion with vasogenic edema and cerebellar tonsillar herniation, thought to be metastatic disease in the setting of a 2 cm right lung apex nodule and bilateral hilar adenopathy. HISTORY OF PRESENT ILLNESS: Srinivas Sánchez is a 56-year-old gentleman who was admitted for altered mental status. CT scan of the brain done on admission revealed a 4 x 2.5 cm mass encompassing the fourth ventricle with vasogenic edema. The patient is now on Decadron. In spite of his work up he had a CT scan of the chest done on 08/22/2016, to rule out pulmonary embolism and the CT angiogram revealed a 2 x 1.5 cm spiculated mass in the right lung apex suspicious for malignancy. Hematology/Oncology was consulted given the new findings and concern for metastatic primary lung adenocarcinoma with metastasis (mets) to the brain. Patient has been evaluated by Dr. Flores, Neurosurgery as well. Clinically, on evaluation patient endorses over a 50 pound weight loss in the past 6 months. He also has had decrease in his activities of daily living and change in his appetite as well. PAST MEDICAL HISTORY: None. PAST SURGICAL HISTORY: Leg surgery. HOME MEDICATIONS: None. ALLERGIES: No known drug allergies. SOCIAL HISTORY: Greater than 30 pack-year history of tobacco use. Alcohol: He drinks more than 5 drinks a day. Also, smokes marijuana as well. FAMILY HISTORY: No history of malignancy. PHYSICAL EXAMINATION: VITAL SIGNS: Pulse is 94, temperature is 99.3, blood pressure is 125/78, oxygen saturation is 95% on room air. GENERAL: He is disheveled, lying in bed in no acute distress. HEENT: No pallor or icteric sclerae. Oral mucosa is moist. Oropharynx is clear. He does have some temporal wasting with some cachexia. NECK: Supple. HEART: Regular rate and rhythm. Normal S1, S2. LUNGS: Clear bilaterally. No wheezes, rales or rhonchi. ABDOMEN: Soft, nontender and nondistended. No hepatosplenomegaly or masses. EXTREMITIES: No edema. SKIN: He has ulcerative lesion on the left lateral hip. LABORATORIES AND STUDIES: As dictated above. IMPRESSION: 56-year-old gentleman with what appears to be metastatic lung carcinoma with metastasis to the brain, specifically to his cerebellum with some pertinent findings of vasogenic edema and cerebellar herniation. DISCUSSION: I did discuss with Dr. Flores that given his central nervous system findings at this time, it would be more reasonable for an operative intervention. At that time pathology will be obtained as well and we will determine his primary malignancy. I discussed with the patient as well in detail regarding the plan of care and he is in agreement. SABRA
[2016-08-25] VITALS (16 sets, daily range): BP systolic 117–168; BP diastolic 58–95
[2016-08-25 05:01] LABS: MEAN CORPUSCULAR HEMOGLOBIN 32.8 pg (27.0-33.0); MEAN CORPUSCULAR HGB CONC 34.2 g/dl (32.0-36.5); MEAN CORPUSCULAR VOLUME 95.9 fl (80.0-96.0); RED CELL DISTRIBUTION WIDTH 13.7 % (11.5-14.5)
[2016-08-25] MEDS: SLF 3 ML SYR IV SCH ×3 (05:03→21:18)
[2016-08-25 05:25] LABS: ALBUMIN 2.7 GM/DL (3.2-5.2); ALBUMIN/GLOBULIN RATIO 0.87 (1.00-1.93); ALKALINE PHOSPHATASE 88 U/L (45-117); ALT/SGPT 38 U/L (12-78); ANION GAP 7 MEQ/L (8-16); AST/SGOT 29 U/L (15-37); BILIRUBIN,TOTAL 0.4 MG/DL (0.2-1.0); BLOOD UREA NITROGEN 16 MG/DL (7-18); CALCIUM LEVEL 8.9 MG/DL (8.5-10.1); CARBON DIOXIDE LEVEL 27 MEQ/L (21-32); CHLORIDE LEVEL 101 MEQ/L (98-107); CREATININE FOR GFR 0.67 MG/DL (0.70-1.30); GLOMERULAR FILTRATION RATE > 60.0 (>56); GLUCOSE, FASTING 138 MG/DL (70-105); POTASSIUM SERUM 3.7 MEQ/L (3.5-5.1); SODIUM LEVEL 135 MEQ/L (136-145); TOTAL PROTEIN 5.8 GM/DL (6.4-8.2)
[2016-08-25 07:44] LABS: INR 1.03
--- NOTE | 2016-08-25 07:55 | REP ---
Clinical: Preoperative assessment . Comparison: 07/20/2016 . Findings: The mediastinum and cardiac silhouette are stable and within normal limits for portable technique. Airway is patent and midline. Subtle ill-defined density in the right upper lung zone likely corresponds to suspicious nodule. The lung cage are otherwise clear without acute consolidation, effusion, or pneumothorax. Skeletal structures are intact. Impression: 1. Ill-defined opacity in the right upper lung zone may reflect underlying suspicious nodule as per CT. 2. No further acute mediastinal or pleuroparenchymal process appreciated by portable x-ray. Signed by Rafael Bran MD 08/25/2016 07:46 A
[2016-08-25] MEDS: MULTIVITAMINS/MINERALS THERAP 1 TAB PO SCH (08:40)
[2016-08-25] MEDS: FOLIC ACID 1 MG TAB PO SCH (08:40)
[2016-08-25] MEDS: THIAMINE 100 MG TAB PO SCH ×2 (08:40→21:17)
[2016-08-25] MEDS: NICOTINE 14 MG/24 HR TRANSDERMAL TD SCH (08:41)
[2016-08-25] MEDS: SANTYL OINT 30GM TOP SCH (09:07)
--- NOTE | 2016-08-25 11:50 | IPNPDOC ---
Date Seen The patient was seen on 08/25/16. Progress Note SUBJECTIVE: Patient reports that he feels well and wants to know what the holdup is for her surgery. He has no complaints OBJECTIVE PHYSICAL EXAMINATION: VITAL SIGNS: Please see below. GENERAL: Disheveled man sitting up in bed does not appear to be in acute distress HEENT: Pupils equally round reactive to light he has moist mucous membranes no elevation CVP CARDIOVASCULAR: S 1 S2 regular. RESPIRATORY: Clear to auscultation. ABDOMINAL: All sounds present abdomen soft EXTREMITIES: No clubbing cyanosis or edema LABORATORY DATA: Please see below. MICROBIOLOGY: Please see below. IMAGING: Brain MRI: 1. Right cerebellar mass lesion, thought to most likely be due to metastatic disease. 2. Regional mass effect with surrounding vasogenic edema. 3. Obstructive hydrocephalus. 4. Mild upward transtentorial herniation and right cerebellar tonsillar herniation. CT angiography of the chest:1. No evidence for pulmonary embolism. 2. Severe scattered upper lobe predominant emphysema is seen. There is a spiculated nodule of speculated mass noted in the right lung apex measuring approximately 2.0 x 1.5 cm, highly suspicious for malignancy. Consider further evaluation with PET CT. 3. There is mild bilateral hilar lymphadenopathy noted. CT of the abdomen and pelvis:1. Evidence of circumferential wall thickening along the duodenum and jejunum compatible with enteritis. 2. Small fat containing umbilical hernia is seen. 3. Sigmoid diverticulosis. 4. 6 mm hypodensity at the hepatic dome which may represent small cyst vs hemangioma. CT scan of the head:1. Note again is made of a right cerebellar mass measuring 4 x 3.5 cm with large amount of vasogenic edema and mass effect with compression of 4th ventricle. 2. Lateral ventricles and fourth ventricle are dilated which is likely due to obstructed hydrocephalus. 3. There is diffuse generalized parenchymal atrophy and chronic microvascular disease. 3. No significant interval change. DVT prophylaxis ordered?: Teds and sequentials ASSESSMENT AND PLAN: This is a 56-year-old man with brain mass highly concerning for metastatic lung cancer. PROBLEMS: 1. Brain mass: With evidence of herniation Dr. Tadeo and Dr. Flores of discussed the case the patient has requested surgery despite understanding risks. The patient has no significant cardiac history was reportedly told once the past he was hypertensive is not on any medications nor the hypertensive at this time he has history of tobacco abuse and a history of premature coronary artery disease in his father he is at moderate cardiac risk for surgery an EKG completed this morning is unremarkable here requires no further testing prior to surgery. Perioperative management all as she is related to surgery deferred to Dr. Flores tentatively planned for tomorrow. Likely metastatic lung cancer Dr. Tadeo is on the case for management of his cancer will defer to Dr. Tadeo 2. Left hip wound: Present at the time of admission continue with collagenase and wound care recommendations 3. Alcohol abuse: No signs or symptoms of withdrawal continue with multivitamin and folic acid and thiamine 4. Tobacco abuse: Cessation counseling offered the patient is using a NicoDerm patch at this time 5. Substance abuse: Cessation counseling offered DISPOSITION: At this time the patient has a fairly clear plan of care in place much of management deferred to neurosurgery and oncology I very little to add to this case at this time. Patient is a DNR/DNI VS, I&O, 24H, Fishbone Vital Signs/I&O Vital Signs Date Time Temp Pulse Resp B/P (MAP) Pulse Ox O2 Delivery O2 Flow Rate FiO2 08/25/16 10:00 100 15 117/58 (77) 94 Room Air 08/25/16 08:00 99.2 I&O- Last 24 Hours up to 6 AM 08/25/16 06:00 Intake Total 2400 ml Output Total 2125 ml Balance 275 ml Laboratory Data 24H LABS Laboratory Tests 2 08/25/16 04:37: Anion Gap 7L, Glomerular Filtration Rate > 60.0, Blood Urea Nitrogen 16, Creatinine 0.67L, Sodium Level 135L, Potassium Level 3.7, Chloride Level 101, Carbon Dioxide Level 27, Calcium Level 8.9, Aspartate Amino Transf (AST/SGOT) 29 , Alanine Aminotransferase (ALT/SGPT) 38, Alkaline Phosphatase 88, Total Bilirubin 0.4, Total Protein 5.8L, Albumin 2.7L, Albumin/Globulin Ratio 0.87L 08/25/16 07:24: Prothrombin Time 13.6, Prothromb Time International Ratio 1.03 CBC/BMP Laboratory Tests 08/25/16 04:37 Red Blood Count 4.16 L, Mean Corpuscular Volume 95.9, Mean Corpuscular Hemoglobin 32.8, Mean Corpuscular Hemoglobin Concent 34.2, Red Cell Distribution Width 13.7, Calcium Level 8.9, Aspartate Amino Transf (AST/SGOT) 29 , Alanine Aminotransferase (ALT/SGPT) 38, Alkaline Phosphatase 88, Total Bilirubin 0.4, Total Protein 5.8 L, Albumin 2.7 L JM THEODORE MD Aug 25, 2016 11:50
--- NOTE | 2016-08-25 22:22 | ECGEPIP ---
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
[2016-08-26] VITALS (16 sets, daily range): BP systolic 137–203; BP diastolic 62–91
[2016-08-26 04:33] LABS: MEAN CORPUSCULAR HEMOGLOBIN 32.9 pg (27.0-33.0); MEAN CORPUSCULAR HGB CONC 34.1 g/dl (32.0-36.5); MEAN CORPUSCULAR VOLUME 96.6 fl (80.0-96.0); RED CELL DISTRIBUTION WIDTH 13.3 % (11.5-14.5); WHITE BLOOD COUNT 12.8 K/mm3 (4.0-10.0)
[2016-08-26 04:40] LABS: INR 1.07
[2016-08-26 04:55] LABS: ALBUMIN 2.6 GM/DL (3.2-5.2); ALKALINE PHOSPHATASE 81 U/L (45-117); ALT/SGPT 52 U/L (12-78); ANION GAP 6 MEQ/L (8-16); AST/SGOT 35 U/L (15-37); BILIRUBIN,TOTAL 0.3 MG/DL (0.2-1.0); BLOOD UREA NITROGEN 18 MG/DL (7-18); CALCIUM LEVEL 8.6 MG/DL (8.5-10.1); CARBON DIOXIDE LEVEL 28 MEQ/L (21-32); CHLORIDE LEVEL 103 MEQ/L (98-107); CREATININE FOR GFR 0.72 MG/DL (0.70-1.30); GLOMERULAR FILTRATION RATE > 60.0 (>56); GLUCOSE, FASTING 140 MG/DL (70-105); POTASSIUM SERUM 3.6 MEQ/L (3.5-5.1); SODIUM LEVEL 137 MEQ/L (136-145); TOTAL PROTEIN 5.5 GM/DL (6.4-8.2)
[2016-08-26] MEDS: SLF 3 ML SYR IV SCH (06:18)
[2016-08-26] MEDS ORDERED: THROMBIN SOLN 20,000 UNITS KIT As Ordered ONE ×2 (07:17→14:20)
[2016-08-26] MEDS ORDERED: LIDOCAINE W/EPINEPHRINE 1% 20ML VIAL As Ordered ONE (07:17)
[2016-08-26] MEDS ORDERED: ROCURONIUM BROMIDE 50 MG/5 ML VIAL/SYRINGE As Ordered ONE ×2 (07:20→10:22)
[2016-08-26] MEDS ORDERED: MIDAZOLAM INJ 5 MG/ML VIAL (J2250) As Ordered ONE (07:20)
[2016-08-26] MEDS ORDERED: fentaNYL 250 MCG/5 ML INJECTION (J3010) As Ordered ONE (07:20)
[2016-08-26] MEDS ORDERED: PROPOFOL 200 MG/20 ML VIAL As Ordered ONE ×2 (07:20→13:40)
[2016-08-26] MEDS ORDERED: LIDOCAINE 2% INJ 100 MG/5 ML SDV (FOR ANES.) As Ordered ONE (07:20)
[2016-08-26] MEDS ORDERED: ceFAZolin 2 GM/D5W 50 ML IV BAG (J0690) As Ordered ONE (08:25)
[2016-08-26] MEDS ORDERED: MANNITOL 25% 12.5 GM/50 ML VIAL (J2150) As Ordered ONE (08:57)
[2016-08-26] MEDS ORDERED: FILTER 1.2 MICRON EXT SET (ADULT TPN & MANNITOL) XX ONE (09:26)
[2016-08-26] MEDS ORDERED: dexameTHASONE 4 MG/ML 1ML VIAL (J1100) As Ordered ONE (09:55)
[2016-08-26] MEDS ORDERED: PHENYLephrine HCL 500 MCG/5 ML (100MCG/ML) SYRINGE (J2370) As Ordered ONE (10:22)
[2016-08-26] MEDS ORDERED: ePHEDrine SULFATE 25 MG/5 ML(5MG/ML) SYRINGE As Ordered ONE (10:22)
[2016-08-26] MEDS ORDERED: fentaNYL 100 MCG/2 ML INJECTION (J3010) As Ordered ONE ×3 (13:40→16:28)
[2016-08-26] MEDS ORDERED: NEOSTIGMINE 1MG/ML 5 ML SYRINGE (J2710) As Ordered ONE (13:41)
[2016-08-26] MEDS ORDERED: ONDANSETRON 4MG/2ML VIAL (J2405) As Ordered ONE ×2 (13:41→16:28)
[2016-08-26] MEDS ORDERED: GLYCOPYRROLATE INJ 0.2 MG/ML 2 ML VIAL As Ordered ONE (13:41)
[2016-08-26] MEDS ORDERED: methylPREDNISolone SUSP 40 MG/ML (DEPO-medrol) VIAL (J1030) As Ordered ONE (14:25)
[2016-08-26] MEDS ORDERED: POLYSPORIN TOPICAL OINTMENT 15GM As Ordered ONE (15:36)
[2016-08-26] MEDS ORDERED: KCL 20MEQ IN D5/.45NACL 1000ML As Ordered ONE (16:21)
[2016-08-26] MEDS: fentaNYL 100 MCG/2 ML INJECTION (J3010) IV PRN ×4 (16:30→16:58)
[2016-08-26] MEDS ORDERED: KCL 20MEQ IN D5/0.45NS 1000ML 1,000 ML IV SCH (16:45)
[2016-08-26] MEDS ORDERED: MORPHINE 2 MG/ML 1ML SYRINGE IV PRN (16:45)
[2016-08-26] MEDS ORDERED: ACETAMINOPHEN 500 MG TAB PO PRN (16:45)
[2016-08-26] MEDS ORDERED: ONDANSETRON 4MG/2ML VIAL (J2405) IV PRN (16:45)
[2016-08-26] MEDS ORDERED: LABETALOL HCL 100 MG/20 ML VIAL IV SCH (16:45)
[2016-08-26] MEDS ORDERED: LR 1,000 ML IV SCH (16:45)
[2016-08-26] MEDS: dexameTHASONE 4 MG/ML 1ML VIAL (J1100) IV SCH ×2 (17:00→23:24)
[2016-08-26] MEDS: ceFAZolin SOD 1 GM in D5W MINI-BAG PLUS 50 ML IV SCH ×2 (17:00→23:24)
[2016-08-26] MEDS: ACETAMINOPHEN 500 MG TAB PO PRN (17:51)
[2016-08-26] MEDS: MORPHINE 2 MG/ML 1ML SYRINGE IV PRN (19:41)
[2016-08-27] VITALS (20 sets, daily range): BP systolic 136–178; BP diastolic 63–88
[2016-08-27] MEDS: dexameTHASONE 4 MG/ML 1ML VIAL (J1100) IV SCH ×4 (04:46→22:48)
[2016-08-27] MEDS: ceFAZolin SOD 1 GM in D5W MINI-BAG PLUS 50 ML IV SCH ×2 (04:46→12:24)
[2016-08-27] MEDS: ACETAMINOPHEN 500 MG TAB PO PRN ×4 (04:46→21:29)
[2016-08-27 05:47] LABS: MEAN CORPUSCULAR HEMOGLOBIN 33.1 pg (27.0-33.0); MEAN CORPUSCULAR HGB CONC 34.3 g/dl (32.0-36.5); MEAN CORPUSCULAR VOLUME 96.5 fl (80.0-96.0); RED CELL DISTRIBUTION WIDTH 13.6 % (11.5-14.5)
[2016-08-27 06:19] LABS: ALBUMIN 2.4 GM/DL (3.2-5.2); ALKALINE PHOSPHATASE 80 U/L (45-117); ALT/SGPT 47 U/L (12-78); ANION GAP 7 MEQ/L (8-16); AST/SGOT 33 U/L (15-37); BILIRUBIN,TOTAL 0.2 MG/DL (0.2-1.0); BLOOD UREA NITROGEN 11 MG/DL (7-18); CALCIUM LEVEL 8.1 MG/DL (8.5-10.1); CARBON DIOXIDE LEVEL 27 MEQ/L (21-32); CHLORIDE LEVEL 103 MEQ/L (98-107); CREATININE FOR GFR 0.71 MG/DL (0.70-1.30); GLOMERULAR FILTRATION RATE > 60.0 (>56); GLUCOSE, FASTING 143 MG/DL (70-105); POTASSIUM SERUM 3.8 MEQ/L (3.5-5.1); SODIUM LEVEL 137 MEQ/L (136-145); TOTAL PROTEIN 4.8 GM/DL (6.4-8.2)
[2016-08-27] MEDS ORDERED: FILTER 1.2 MICRON EXT SET (ADULT TPN & MANNITOL) XX ONE (07:59)
[2016-08-27] MEDS: NICOTINE 14 MG/24 HR TRANSDERMAL TD SCH (09:14)
[2016-08-27] MEDS: FOLIC ACID 1 MG TAB PO SCH (09:15)
[2016-08-27] MEDS: MULTIVITAMINS/MINERALS THERAP 1 TAB PO SCH (09:15)
[2016-08-27] MEDS: THIAMINE 100 MG TAB PO SCH (09:15)
--- NOTE | 2016-08-27 09:54 | IPNPDOC ---
Date Seen The patient was seen on 08/27/16. Progress Note SUBJECTIVE: Patient reports that he feels well he does not notice any difference post operatively. He has no complaints OBJECTIVE PHYSICAL EXAMINATION: VITAL SIGNS: Please see below. GENERAL: Disheveled man sitting up in bed does not appear to be in acute distress HEENT: Pupils equally round reactive to light he has moist mucous membranes no elevation CVP, surgical site dressing clean dry intact. CARDIOVASCULAR: S1 S2 regular. RESPIRATORY: Clear to auscultation. ABDOMINAL: All sounds present abdomen soft EXTREMITIES: No clubbing cyanosis or edema LABORATORY DATA: Please see below. MICROBIOLOGY: Please see below. ASSESSMENT AND PLAN: This is a 56-year-old man with herniating brain mass highly concerning for metastatic lung cancer. PROBLEMS: 1. Brain mass: s/p OR by Dr. Flores who has agreed to take over care. perioperative management/monitoring/BP goals/DVT ppx all as per Dr. Flores. Would recommend PT Home safety clearance when ok with neurosurgery prior to discharge. 2. Lung Mass: Likely Lung CA with brain met, f/u Tissue diagnosis with Dr. Tadeo and management as per Oncology 2. Left hip wound: Present at the time of admission continue with collagenase dressing patient should have referral to Dr. Salcido through new PCP at discharge 3. Alcohol abuse: No evidence of DTs continue with multivitamin and folic acid and thiamine which he may continue on discharge 4. Tobacco abuse: continue NicoDerm patch at this time and at discharge From medical perspective patient can be discharged once cleared by PT. rest as per Neurosurg. VS, I&O, 24H, [place]ylonbone Vital Signs/I&O Vital Signs Date Time Temp Pulse Resp B/P (MAP) Pulse Ox O2 Delivery O2 Flow Rate FiO2 08/27/16 08:00 99.1 84 17 139/74 (95) 96 Room Air 170/75 (106) 08/27/16 03:00 2.0 I&O- Last 24 Hours up to 6 AM 08/27/16 06:00 Intake Total 3180 ml Output Total 3090 ml Balance 90 ml Laboratory Data 24H LABS Laboratory Tests 2 08/27/16 05:33: Anion Gap 7L, Glomerular Filtration Rate > 60.0, Blood Urea Nitrogen 11, Creatinine 0.71, Sodium Level 137, Potassium Level 3.8, Chloride Level 103, Carbon Dioxide Level 27, Calcium Level 8.1L, Aspartate Amino Transf (AST/SGOT) 33, Alanine Aminotransferase (ALT/SGPT) 47, Alkaline Phosphatase 80, Total Bilirubin 0.2, Total Protein 4.8L, Albumin 2.4L, Albumin/Globulin Ratio 1.00 CBC/BMP Laboratory Tests 08/27/16 05:33 Red Blood Count 3.88 L, Mean Corpuscular Volume 96.5 H, Mean Corpuscular Hemoglobin 33.1 H, Mean Corpuscular Hemoglobin Concent 34.3, Red Cell Distribution Width 13.6, Calcium Level 8.1 L, Aspartate Amino Transf (AST/SGOT) 33, Alanine Aminotransferase (ALT/SGPT) 47, Alkaline Phosphatase 80, Total Bilirubin 0.2, Total Protein 4.8 L, Albumin 2.4 L Microbiology Microbiology 08/26/16 Fungal Smear, Received Pending 08/26/16 Fungal Culture, Received Pending 08/26/16 Gram Stain - Final, Resulted 08/26/16 Wound Culture, Resulted Pending 08/26/16 Anaerobic Culture, Resulted Pending JM THEODORE MD Aug 27, 2016 09:54
[2016-08-27] MEDS ORDERED: ISOVUE-370 76% 100ML VIAL (Q9967) As Ordered ONE (09:55)
--- NOTE | 2016-08-27 10:49 | REP ---
CT HEAD WITH AND WITHOUT CONTRAST: HISTORY: Right cerebellar mass. Contrast Isovue 370, 75 mL. COMPARISON: CT and MR date 08/22/2016. The patient is status post midline suboccipital craniectomy and resection of a right cerebellar mass. A small amount of hemorrhage and pneumocephalus are present in the right cerebellum. Surrounding edema is present. There is mass effect with partial effacement of the 4th ventricle with minimal displacement to the left. There is partial effacement of the quadrigeminal plate cistern consistent with upper transtentorial herniation. Decreased attenuation is present in the periventricular white matter consistent with transependymal edema. There is dilatation of the ventricles consistent with mild hydrocephalus that is slightly decreased compared to the previous study. There are scattered areas of pneumocephalus. There is no extracerebral collection. The visualized sinuses are clear. IMPRESSION: 1. The patient is status post resection of a right cerebellar mass. A small amount of hemorrhage and pneumocephalus is present in the right cerebellum. Surrounding edema is present with minimal displacement of the fourth ventricle to the left. 2. Mild hydrocephalus is present that is decreased compared to the previous study. ? Signed by Weston Wynn MD 08/27/2016 10:52 A
--- NOTE | 2016-08-27 14:16 | RO ---
DATE OF PROCEDURE: 08/26/2016 PREPROCEDURE DIAGNOSES: Solitary metastatic lesion cerebellum, severe brain edema, tonsillar herniation, acute hydrocephalus. POSTPROCEDURE DIAGNOSES: Solitary metastatic lesion cerebellum, severe brain edema, tonsillar herniation, acute hydrocephalus. PROCEDURE: Bilateral sub occipital craniectomy with excision of large mass, frozen section report is undifferentiated carcinoma, probably from lung. Duraplasty. SURGEON: Zaina Flores MD TELEGRAPH MESSENGER: None. ANESTHESIA: General. FINDINGS: Please see the recent hospital records for details. The patient was found in his home on the floor, confused and not able to move much of his limbs, particularly his legs after lying on the floor for about one week. His brother stopped by and asked him to call 911, who brought him to the emergency room. His workup showed a massive lesion in his cerebellum in the midline and mostly right with severe mass effect causing acute hydrocephalus and tonsillar herniation. The patient was placed on steroids. The various options and management were discussed with the patient when he was more awake, oriented and also when he was done with his family. The patient and his family were aware of the grave outlook and understood all options. The patient was seen by oncologist, who recommended biopsy of the brain before radiation therapy or chemotherapy would be initiated. Patient and family are aware of the scope, expected outcomes, sequela and all complications of proposed salvage procedure. They understood that the surgery was not curative and that the risk of surgery included, but not limited to, , quadriplegia, paralysis, loss of any or all vital bodily functions, seizure disorder, status epilepticus, PE, deep vein thrombosis (DVT), myocardial infarction, need for further surgery, failure of surgery need for multiple surgeries and/or any catastrophic sequelae. The patient may require ventriculostomy either in the same procedure or if needed down the road. The patient and family wished to proceed with surgery. DESCRIPTION OF PROCEDURE: Once in the operating room, general endotracheal anesthesia was given by the anesthesia service. The area of surgery was prepped and draped in the usual sterile fashion, after the patient laid prone on the operating room table with the head fixed in three point skeletal fixation with the head in a slightly flexed position. After adequate prep and drape, under magnification, a few inch long incision was given. Starting in the occiput region up to the C2 spinous process, deep fascia was reached. Cut edges of the blood vessels were coagulated with bipolar cautery. Ligamentum nuchae was reached and incised in the midline and spinal muscles were from C1 and occipital squama was exposed. A bur hole was created on each of the occipital squama and a craniectomy was created. The brain was marked swollen. A couple of centimeters of incision was given in the dura and brain expressed out from the dural incision. A small corectomy of less than 1 CMS was done at the junction of posterior and superior aspect of right cerebellar hemisphere a CMS from midline. and the tumor was reached. It was a huge tumor displacing the cerebellum, no physical retraction of the cerebellum was used the brain was from the mass using cottonoids or Gelfoam, the capsule was coagulated and shrank to keep it fall further away from the cerebellum and to devascularize it. and it was removed in piecemeal fashion by using bipolar cautery and CUSA All of the tumor appeared to have been removed. The cisterna magna was opened before debulking of the tumor, and a huge amount of CSF was drained and that slacked the brain nicely. Surgical procedure was done without retraction to the brain. The tumor and the brain were from each other by placing cottonoids. Hemostasis was checked and secured. Blood loss was negligible, maybe 50 mL or less At this time, the wound was closed in anatomic layers and a DuraGraft was applied and secured with DuraSeal. The patient tolerated the procedure satisfactorily and was sent to the recovery room in stable condition. Operative findings were discussed with the patient's family in the waiting room. At the time of this dictation in the recovery room he woke up fine, was verbalizing and already moving legs normally, and was following commands. SABRA
[2016-08-27] MEDS: SANTYL OINT 30GM TOP SCH (17:58)
[2016-08-28] VITALS (10 sets, daily range): BP systolic 127–166; BP diastolic 61–88
--- NOTE | 2016-08-28 00:48 | CR ---
DATE OF CONSULTATION: 08/27/2016 Advanced wound care consult requested by Dr. Flores regarding an unstageable left hip pressure injury. This is a 56-year-old male who took ill approximately 2 weeks ago with difficulty in ambulation, balance and was then unable to move appropriately. He gives a history of being in the left lateral decubitus position for quite some time and to negotiate his home he had to drag himself on the floor. He was admitted and found to have a lesion in the right posterior fossa of the brain and also a right lung, upper lobe lesion, both of which show a high probability of malignancy. The patient underwent a craniotomy on 08/26/2016, with biopsy with results pending. The left hip area shows a pressure injury wound measuring 7.0 cm x 5.5 cm with a wound depth of 0.2 cm. The majority of the wound base is covered by a thick, dry, fixed black eschar without fluctuation or drainage. There is a small area of denuded eschar on the medial wound edge which reveals superficial fibrin slough and visible subcutaneous tissue. There is serosanguinous drainage without purulent drainage noted. Wound edges are demarcated and fixed and the periwound shows no erythema , maceration or ischemic change. There is a small, similar satellite wound, inferior and posterior to the primary pressure injury, which measures 1.5 cm x 2.0 cm. This wound shows a fixed, dry black eschar without fluctuation or drainage. The depth is unappreciable. Wound edges are fixed and the periwound shows no erythema, maceration or ischemic change. At present, the patient is partially paralyzed and his prognosis is guarded. Inspection of the sacrum and the heels show no pressure injuries present. CLINICAL FINDINGS AND IMPRESSION: Unstageable pressure injury involving the left hip. TREATMENT: At this time, the patient should be on a pressure relieving mattress , should be rotated in terms of change of position every 2 hours to avoid prolonged pressure in any one position. He may be out of bed as tolerated and there is no limitation or contraindication to physical therapy. Wound treatment: Santyl and foam. Ideally, the eschar should be scored with either a #15 blade or preferably a curette. This would allow the Santyl to begin penetration and debridement. The wounds should be covered with a large foam dressing. Dressing changes can be performed on a daily basis or every other day. As soon as the patient is placed, we will be glad to see him in the wound clinic where removal of the eschar under local anesthesia can be satisfactorily performed and alternative dressing changes initiated.As there is no clinical evidence of cellulitis urgent debridement can be placed on hold until the patient clinically improves. I am available to discuss any specific details or changes in the patient's condition regarding his wound by calling the wound clinic. Thank you for this consultation. SABRA
[2016-08-28] MEDS: ACETAMINOPHEN 500 MG TAB PO PRN (03:06)
[2016-08-28] MEDS: MORPHINE 2 MG/ML 1ML SYRINGE IV PRN (03:47)
[2016-08-28 04:50] LABS: MEAN CORPUSCULAR HEMOGLOBIN 32.7 pg (27.0-33.0); MEAN CORPUSCULAR HGB CONC 33.9 g/dl (32.0-36.5); MEAN CORPUSCULAR VOLUME 96.5 fl (80.0-96.0); RED CELL DISTRIBUTION WIDTH 13.8 % (11.5-14.5); WHITE BLOOD COUNT 17.1 K/mm3 (4.0-10.0)
[2016-08-28 05:09] LABS: ALBUMIN 2.2 GM/DL (3.2-5.2); ALBUMIN/GLOBULIN RATIO 0.79 (1.00-1.93); ALKALINE PHOSPHATASE 77 U/L (45-117); ALT/SGPT 39 U/L (12-78); ANION GAP 3 MEQ/L (8-16); AST/SGOT 26 U/L (15-37); BILIRUBIN,TOTAL 0.2 MG/DL (0.2-1.0); BLOOD UREA NITROGEN 14 MG/DL (7-18); CALCIUM LEVEL 7.9 MG/DL (8.5-10.1); CARBON DIOXIDE LEVEL 32 MEQ/L (21-32); CHLORIDE LEVEL 103 MEQ/L (98-107); CREATININE FOR GFR 0.57 MG/DL (0.70-1.30); GLOMERULAR FILTRATION RATE > 60.0 (>56); GLUCOSE, FASTING 122 MG/DL (70-105); POTASSIUM SERUM 3.9 MEQ/L (3.5-5.1); SODIUM LEVEL 138 MEQ/L (136-145)
[2016-08-28] MEDS: dexameTHASONE 4 MG/ML 1ML VIAL (J1100) IV SCH ×4 (05:21→23:43)
--- NOTE | 2016-08-28 06:50 | REPUSA ---
CLINICAL HISTORY: Dizziness. TECHNIQUE: Multiple axial CT images were obtained through the brain without IV contrast material. COMMENTS: Comparison is made to the prior exam performed on 08/22/2016. Changes from recent occipital craniectomy. 2.4 x 2.2 cm acute/subacute hematoma in the right cerebellar hemisphere at the topography of the rese cted right cerebellar mass. Significant decrease in the mass effect. Moderate residual right cerebellar edema. Pneumocephaly is noted. Resolution of midline shift. Significant decrease in right cerebellar tonsillar herniation with minimal residual herniation of the right cerebellar tonsil through the foramen magnum. Significant decrease in fourth ventricle with a decrease in the hydrocephalus. IMPRESSION: Changes from recent occipital craniectomy. Acute/subacute hematoma in the right cerebellar hemisphere in the topography of the resected cerebell ar mass. Significant decrease in the mass effect. Moderate residual right cerebellar edema. Pneumocephaly is noted. Thank you for your kind referral of this patient.
[2016-08-28] MEDS: MULTIVITAMINS/MINERALS THERAP 1 TAB PO SCH (08:44)
[2016-08-28] MEDS: THIAMINE 100 MG TAB PO SCH (08:44)
[2016-08-28] MEDS: SANTYL OINT 30GM TOP SCH (08:44)
[2016-08-28] MEDS: FOLIC ACID 1 MG TAB PO SCH (08:44)
[2016-08-28] MEDS: NICOTINE 14 MG/24 HR TRANSDERMAL TD SCH (08:44)
--- NOTE | 2016-08-28 09:57 | IPNPDOC ---
Date Seen The patient was seen on 08/28/16. Progress Note SUBJECTIVE: Patient reports that he feels great and he has no complaints today. OBJECTIVE PHYSICAL EXAMINATION: VITAL SIGNS: Please see below. GENERAL: Disheveled man sitting up in bed does not appear to be in acute distress. He is AAOx3 and to situation HEENT: Pupils equally round reactive to light he has moist mucous membranes no elevation CVP, surgical site dressing clean dry intact. CARDIOVASCULAR: S1 S2 regular. RESPIRATORY: Clear to auscultation. ABDOMINAL: All sounds present abdomen soft EXTREMITIES: No clubbing cyanosis or edema LABORATORY DATA: Please see below. MICROBIOLOGY: Please see below. ASSESSMENT AND PLAN: This is a 56-year-old man with herniating brain mass highly concerning for metastatic lung cancer s/p surgical resection. PROBLEMS: 1. Brain mass: POD#2 Perioperative care as per Dr. Flores. PT currently deemed patient not safe for d/c at this time, but improving quickly I suspect 24-48 hours from PT perspective. 2. Lung Mass: Prelim non small cell Lung CA f/u final Tissue diagnosis with Dr. Tadeo, will discuss with Onc if further staging/metastatic workup needed prior to d/c. Patient has stated he wishes to fully pursue treatment demonstrates good understanding of Dx and consequences of it. We currently do not do inpatient chemo at [facility] as such no initiation of therapy possible. 3. Metabolic/Nutritional homeostasis: ensure enlive TID with meals as per nutrition 4. Left hip wound: Management and f/u as per Dr. Salcido and his note/orders 5. Alcohol abuse: No evidence of DTs continue with multivitamin and folic acid and thiamine which he may continue on discharge 6. Tobacco abuse: continue NicoDerm patch at this time and at discharge From medical perspective no need to remain ICU level of care VS, I&O, 24H, Fishbone Vital Signs/I&O Vital Signs Date Time Temp Pulse Resp B/P (MAP) Pulse Ox O2 Delivery O2 Flow Rate FiO2 08/28/16 04:19 16 08/28/16 04:00 76 155/74 (101) 97 Room Air 08/28/16 03:30 98.3 08/27/16 03:00 2.0 I&O- Last 24 Hours up to 6 AM 08/28/16 06:00 Intake Total 1940 ml Output Total 1495 ml Balance 445 ml Laboratory Data 24H LABS Laboratory Tests 2 08/28/16 04:32: Anion Gap 3L, Glomerular Filtration Rate > 60.0, Blood Urea Nitrogen 14, Creatinine 0.57L, Sodium Level 138, Potassium Level 3.9, Chloride Level 103, Carbon Dioxide Level 32, Calcium Level 7.9L, Aspartate Amino Transf (AST/SGOT) 26, Alanine Aminotransferase (ALT/SGPT) 39, Alkaline Phosphatase 77, Total Bilirubin 0.2, Total Protein 5.0L, Albumin 2.2L, Albumin/Globulin Ratio 0.79L CBC/BMP Laboratory Tests 08/28/16 04:32 Red Blood Count 3.85 L, Mean Corpuscular Volume 96.5 H, Mean Corpuscular Hemoglobin 32.7, Mean Corpuscular Hemoglobin Concent 33.9, Red Cell Distribution Width 13.8, Calcium Level 7.9 L, Aspartate Amino Transf (AST/SGOT) 26, Alanine Aminotransferase (ALT/SGPT) 39, Alkaline Phosphatase 77, Total Bilirubin 0.2, Total Protein 5.0 L, Albumin 2.2 L Microbiology Microbiology 08/26/16 Fungal Smear, Received Pending 08/26/16 Fungal Culture, Received Pending 08/26/16 Gram Stain - Final, Resulted 08/26/16 Wound Culture, Resulted Pending 08/26/16 Anaerobic Culture - Final, Resulted JM THEODORE MD Aug 28, 2016 09:57
[2016-08-29] VITALS: BP_SYST 117; BP_SYST 166; BP_DIAS 58; BP_DIAS 79
[2016-08-29 04:00] VITALS: BP 158/82
[2016-08-29 04:41] LABS: MEAN CORPUSCULAR HGB CONC 34.3 g/dl (32.0-36.5); MEAN CORPUSCULAR VOLUME 96.3 fl (80.0-96.0); RED CELL DISTRIBUTION WIDTH 13.9 % (11.5-14.5); WHITE BLOOD COUNT 16.6 K/mm3 (4.0-10.0)
[2016-08-29 05:02] LABS: ALBUMIN 2.2 GM/DL (3.2-5.2); ALBUMIN/GLOBULIN RATIO 0.71 (1.00-1.93); ALKALINE PHOSPHATASE 72 U/L (45-117); ALT/SGPT 46 U/L (12-78); ANION GAP 5 MEQ/L (8-16); AST/SGOT 34 U/L (15-37); BILIRUBIN,TOTAL 0.2 MG/DL (0.2-1.0); BLOOD UREA NITROGEN 12 MG/DL (7-18); CALCIUM LEVEL 8.5 MG/DL (8.5-10.1); CARBON DIOXIDE LEVEL 30 MEQ/L (21-32); CHLORIDE LEVEL 106 MEQ/L (98-107); CREATININE FOR GFR 0.57 MG/DL (0.70-1.30); GLOMERULAR FILTRATION RATE > 60.0 (>56); GLUCOSE, FASTING 122 MG/DL (70-105); POTASSIUM SERUM 3.8 MEQ/L (3.5-5.1); SODIUM LEVEL 141 MEQ/L (136-145); TOTAL PROTEIN 5.3 GM/DL (6.4-8.2)
[2016-08-29] MEDS: dexameTHASONE 4 MG/ML 1ML VIAL (J1100) IV SCH ×4 (05:30→22:52)
[2016-08-29 08:00] VITALS: BP_SYST 162; BP_DIAS 82; BP_DIAS 85
[2016-08-29] MEDS: THIAMINE 100 MG TAB PO SCH (08:34)
[2016-08-29] MEDS: FOLIC ACID 1 MG TAB PO SCH (08:34)
[2016-08-29] MEDS: MULTIVITAMINS/MINERALS THERAP 1 TAB PO SCH (08:34)
[2016-08-29] MEDS: NICOTINE 14 MG/24 HR TRANSDERMAL TD SCH (08:34)
[2016-08-29] MEDS: SANTYL OINT 30GM TOP SCH (08:35)
--- NOTE | 2016-08-29 09:51 | IPNPDOC ---
Date Seen The patient was seen on 08/29/16. Progress Note SUBJECTIVE: Patient reports that he feels unsteady on his feet but improved from previous days. He has no other complaints at this time he is voiding and making urine OBJECTIVE PHYSICAL EXAMINATION: VITAL SIGNS: Please see below. GENERAL: Disheveled man sitting up in bed does not appear to be in acute distress. He is AAOx3 and to situation HEENT: Pupils equally round reactive to light he has moist mucous membranes no elevation CVP, surgical site dressing clean dry intact. CARDIOVASCULAR: S1 S2 regular. RESPIRATORY: Clear to auscultation. ABDOMINAL: All sounds present abdomen soft EXTREMITIES: No clubbing cyanosis or edema LABORATORY DATA: Please see below. MICROBIOLOGY: Please see below. 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 Brain mass: POD#3 Perioperative care including blood pressure goals as per Dr. Flores. Residual scans did not show any evidence of remaining tumor PT currently deemed patient not safe for d/c at this time, but improving quickly I suspect 24-48 hours from PT perspective. We will reevaluate him tomorrow morning if he is not ready he may require some subacute rehabilitation. 2. Poorly differentiated non-small cell lung cancer: Based on preliminary pathology this is what it appears to be. Dr. Arnold has been counseled regarding the patient's chest mass however I suspect we may be able to make a definitive diagnosis based on tissue markers obtained from his right cerebellar mass resection would not proceed with any of the biopsies and pelvis final result has returned. I did speak with Dr. Arnold yesterday and feels patient would benefit from home and function test prior to any resection which does seem appropriate this likely be completed outpatient. I did discuss the case once again with Dr. Tadeo who feels that there is no residual tumor that radiation therapy is not indicated at this time that he will follow the patient up on in his office and final tissue diagnosis (treatment in the outpatient setting. 3. Metabolic/Nutritional homeostasis: ensure enlive TID with meals as per nutrition 4. Left hip wound: Management and f/u as per Dr. Salcido and his note/orders 5. Alcohol abuse: No evidence of DTs continue with multivitamin and folic acid and thiamine which he may continue on discharge 6. Tobacco abuse: continue NicoDerm patch at this time and at discharge From a medical perspective noted for the patient's remained in the progressive care unit. VS, I&O, 24H, Fishbone Vital Signs/I&O Vital Signs Date Time Temp Pulse Resp B/P (MAP) Pulse Ox O2 Delivery O2 Flow Rate FiO2 08/29/16 08:00 98.6 80 18 162/82 (108) 99 Room Air 08/27/16 03:00 2.0 I&O- Last 24 Hours up to 6 AM 08/29/16 06:00 Intake Total 1075 ml Output Total 2000 ml Balance -925 ml Laboratory Data 24H LABS Laboratory Tests 2 08/29/16 04:04: Anion Gap 5L, Glomerular Filtration Rate > 60.0, Blood Urea Nitrogen 12, Creatinine 0.57L, Sodium Level 141, Potassium Level 3.8, Chloride Level 106, Carbon Dioxide Level 30, Calcium Level 8.5, Aspartate Amino Transf (AST/SGOT) 34 , Alanine Aminotransferase (ALT/SGPT) 46, Alkaline Phosphatase 72, Total Bilirubin 0.2, Total Protein 5.3L, Albumin 2.2L, Albumin/Globulin Ratio 0.71L CBC/BMP Laboratory Tests 08/29/16 04:04 Red Blood Count 3.88 L, Mean Corpuscular Volume 96.3 H, Mean Corpuscular Hemoglobin 33.0, Mean Corpuscular Hemoglobin Concent 34.3, Red Cell Distribution Width 13.9, Calcium Level 8.5, Aspartate Amino Transf (AST/SGOT) 34 , Alanine Aminotransferase (ALT/SGPT) 46, Alkaline Phosphatase 72, Total Bilirubin 0.2, Total Protein 5.3 L, Albumin 2.2 L Microbiology Microbiology 08/26/16 Fungal Smear, Received Pending 08/26/16 Fungal Culture, Received Pending 08/26/16 Gram Stain - Final, Complete 08/26/16 Wound Culture - Final, Complete Enterococcus Faecalis 08/26/16 Anaerobic Culture - Final, Complete JM THEODORE MD Aug 29, 2016 09:51
[2016-08-29 12:00] VITALS: BP 155/78
--- NOTE | 2016-08-29 19:43 | CR ---
DATE OF CONSULTATION: 08/29/2016 REASON FOR CONSULTATION: The patient is seen at the request of Dr. Flores for a right upper lobe lesion. I am seeing Mr. Sánchez briefly as he will be followed up as an outpatient for an extensive workup. HISTORY OF PRESENT ILLNESS: The patient is a 56-year-old white male who has undergone removal of a cerebral tumor, which by reports of Dr. Flores is thought to represent metastatic disease. The tumor was solitary and has been completely removed. He is known to have a right upper lobe lung mass, which needs characterization. It is conjectured that the tumor in his brain is secondary to the tumor in his lung. This will need an extensive workup to figure out if this an operable lesion. His CT scan, which I am personally reviewing, shows a spiculated left upper lobe mass, which measures approximately 1.5 cm. I do not see mediastinal lymphadenopathy, and his adrenals look to have a normal configuration. There are no liver lesions. He has emphysematous changes throughout. I therefore introduced myself to Mr. Sánchez and I will arrange for him to followup in the office for an outpatient workup, which will have to include pulmonary function tests and PET CT to investigate other possible metastatic lesions. If this does represent a solitary brain tumor with a solitary lung mass and with acceptable pulmonary functions, I would consider undertaking lobectomy. If his lung functions are not satisfactory, he may be a candidate for SBRT.
[2016-08-29 22:00] VITALS: BP 150/70
[2016-08-30 03:15] VITALS: BP 154/76
[2016-08-30] MEDS: dexameTHASONE 4 MG/ML 1ML VIAL (J1100) IV SCH ×4 (05:23→22:17)
[2016-08-30 06:00] VITALS: BP 156/78
[2016-08-30 07:06] LABS: MEAN CORPUSCULAR HEMOGLOBIN 33.1 pg (27.0-33.0); MEAN CORPUSCULAR HGB CONC 33.6 g/dl (32.0-36.5); MEAN CORPUSCULAR VOLUME 98.3 fl (80.0-96.0); RED CELL DISTRIBUTION WIDTH 14.1 % (11.5-14.5); WHITE BLOOD COUNT 14.9 K/mm3 (4.0-10.0)
[2016-08-30 07:28] LABS: ALBUMIN 2.5 GM/DL (3.2-5.2); ALBUMIN/GLOBULIN RATIO 0.81 (1.00-1.93); ALKALINE PHOSPHATASE 75 U/L (45-117); ALT/SGPT 82 U/L (12-78); ANION GAP 3 MEQ/L (8-16); AST/SGOT 55 U/L (15-37); BILIRUBIN,TOTAL 0.3 MG/DL (0.2-1.0); BLOOD UREA NITROGEN 16 MG/DL (7-18); CALCIUM LEVEL 8.8 MG/DL (8.5-10.1); CARBON DIOXIDE LEVEL 32 MEQ/L (21-32); CHLORIDE LEVEL 104 MEQ/L (98-107); CREATININE FOR GFR 0.68 MG/DL (0.70-1.30); GLOMERULAR FILTRATION RATE > 60.0 (>56); GLUCOSE, FASTING 116 MG/DL (70-105); POTASSIUM SERUM 3.7 MEQ/L (3.5-5.1); SODIUM LEVEL 139 MEQ/L (136-145); TOTAL PROTEIN 5.6 GM/DL (6.4-8.2)
[2016-08-30 08:00] VITALS: BP 156/78
[2016-08-30] MEDS: MULTIVITAMINS/MINERALS THERAP 1 TAB PO SCH (09:05)
[2016-08-30] MEDS: NICOTINE 14 MG/24 HR TRANSDERMAL TD SCH (09:05)
[2016-08-30] MEDS: FOLIC ACID 1 MG TAB PO SCH (09:05)
[2016-08-30] MEDS: THIAMINE 100 MG TAB PO SCH (09:06)
--- NOTE | 2016-08-30 09:57 | REP ---
REASON: Followup. COMPARISON: 08/28/2016. The craniotomy defect is unchanged. The degree of pneumocephaly in the postoperative bed has lessened as has the increased density in the postoperative bed consistent with blood. The fourth ventricle is unchanged in size and there is an unchanged shift of the cerebellum to the left. There is no evidence of acute intracranial hemorrhage. Overall the ventricles are unchanged in size. There is no change in appearance of the skull. IMPRESSION: Slight improvement as described above. Signed by Marcel Vieyra DO 08/30/2016 10:42 A
[2016-08-30] MEDS: SANTYL OINT 30GM TOP SCH (11:18)
--- NOTE | 2016-08-30 16:04 | IPNPDOC ---
Date Seen The patient was seen on 08/30/16. Progress Note SUBJECTIVE: Patient reports that he feels fine and shouts that he wants to go home OBJECTIVE PHYSICAL EXAMINATION: VITAL SIGNS: Please see below. GENERAL: Disheveled man up ambulating around his room. He is AAOx3 and to situation HEENT: Pupils equally round reactive to light he has moist mucous membranes no elevation CVP, surgical site dressing clean dry intact. CARDIOVASCULAR: S1 S2 regular. RESPIRATORY: Clear to auscultation. ABDOMINAL: All sounds present abdomen soft EXTREMITIES: No clubbing cyanosis or edema LABORATORY DATA: Please see below. MICROBIOLOGY: Please see below. ASSESSMENT AND PLAN: This is a 56-year-old man with likely poorly differentiated non-small cell likely lung cancer with brain metastasis status post surgical resection PROBLEMS: 1. Brain metastasis: POD#[address] Flores, repeat CT head ordered this AM 2. Poorly differentiated non-small cell likely lung cancer: Patient will f/u outpatient with Clayton Borrego, and [facility]. Not safe by PT at this time, also has been evicted from home and has no place to live right now. PFS cons placed. Tumor markers will likely provide primary site which we are awaiting, lung mass most likely source. Patient agreeable for continued care and although often becomes agitated has been talked down into recieving and cooperating with care numerous occasions during his stay. 3. Metabolic/Nutritional homeostasis: ensure enlive TID with meals as per nutrition 4. Chronic Left hip wound/ulcer: Management and f/u as per Dr. Salcido and his note/orders 5. Alcohol abuse: No evidence of DTs continue with multivitamin and folic acid and thiamine which he may continue on discharge 6. Tobacco abuse: continue NicoDerm patch at this time and at discharge Continue to work towards safe disposition VS, I&O, 24H, Fishbone Vital Signs/I&O Vital Signs Date Time Temp Pulse Resp B/P (MAP) Pulse Ox O2 Delivery O2 Flow Rate FiO2 08/30/16 08:00 70 156/78 08/30/16 06:00 96.9 18 99 Room Air 08/27/16 03:00 2.0 I&O- Last 24 Hours up to 6 AM 08/30/16 06:00 Intake Total 2440 ml Output Total 3050 ml Balance -610 ml Laboratory Data 24H LABS Laboratory Tests 2 08/30/16 06:42: Anion Gap 3L, Glomerular Filtration Rate > 60.0, Blood Urea Nitrogen 16, Creatinine 0.68L, Sodium Level 139, Potassium Level 3.7, Chloride Level 104, Carbon Dioxide Level 32, Calcium Level 8.8, Aspartate Amino Transf (AST/SGOT) 55H, Alanine Aminotransferase (ALT/SGPT) 82H, Alkaline Phosphatase 75, Total Bilirubin 0.3, Total Protein 5.6L, Albumin 2.5L, Albumin/Globulin Ratio 0.81L CBC/BMP Laboratory Tests 08/30/16 06:42 Red Blood Count 4.01 L, Mean Corpuscular Volume 98.3 H, Mean Corpuscular Hemoglobin 33.1 H, Mean Corpuscular Hemoglobin Concent 33.6, Red Cell Distribution Width 14.1, Calcium Level 8.8, Aspartate Amino Transf (AST/SGOT) 55 H, Alanine Aminotransferase (ALT/SGPT) 82 H, Alkaline Phosphatase 75, Total Bilirubin 0.3, Total Protein 5.6 L, Albumin 2.5 L Microbiology Microbiology 08/26/16 Fungal Smear, Received Pending 08/26/16 Fungal Culture, Received Pending 08/26/16 Gram Stain - Final, Complete 08/26/16 Wound Culture - Final, Complete Enterococcus Faecalis 08/26/16 Anaerobic Culture - Final, Complete JM THEODORE MD Aug 30, 2016 16:04
[2016-08-30 22:00] VITALS: BP 140/68
[2016-08-31] MEDS: dexameTHASONE 4 MG/ML 1ML VIAL (J1100) IV SCH ×4 (04:21→22:03)
[2016-08-31 06:00] VITALS: BP 138/76
[2016-08-31 08:48] LABS: ANION GAP 6 MEQ/L (8-16); BLOOD UREA NITROGEN 16 MG/DL (7-18); CALCIUM LEVEL 8.3 MG/DL (8.5-10.1); CARBON DIOXIDE LEVEL 27 MEQ/L (21-32); CHLORIDE LEVEL 106 MEQ/L (98-107); CREATININE FOR GFR 0.58 MG/DL (0.70-1.30); GLOMERULAR FILTRATION RATE > 60.0 (>56); GLUCOSE, FASTING 102 MG/DL (70-105); MAGNESIUM LEVEL 2.4 MG/DL (1.8-2.4); POTASSIUM SERUM 4.3 MEQ/L (3.5-5.1); SODIUM LEVEL 139 MEQ/L (136-145)
[2016-08-31] MEDS: FOLIC ACID 1 MG TAB PO SCH (09:22)
[2016-08-31] MEDS: MULTIVITAMINS/MINERALS THERAP 1 TAB PO SCH (09:22)
[2016-08-31] MEDS: THIAMINE 100 MG TAB PO SCH (09:22)
[2016-08-31] MEDS: SANTYL OINT 30GM TOP SCH (09:22)
[2016-08-31] MEDS: NICOTINE 14 MG/24 HR TRANSDERMAL TD SCH (09:22)
[2016-08-31 14:00] VITALS: BP_SYST 130; BP_DIAS 73; BP_DIAS 78
[2016-08-31] MEDS: HEPARIN SOD (PORCINE) 5000 UNITS/ML VIAL SQ SCH ×2 (14:40→20:00)
--- NOTE | 2016-08-31 18:11 | IPNPDOC ---
Subjective Date Seen The patient was seen on 08/31/16. Subjective Chief Complaint/HPI The patient is a 56-year-old male admitted with a reason for visit of Altered Mental State,Neoplam Of Brain. Events since last encounter no acute events, denied f/c/cp/simmons/abd pain/n/v. tolerate PO, working with pt, family meeting held, goals of care discussed General: Denies: Chills Constitutional: Denies: Chills, Fever, Malaise Eyes: Denies: Pain, Vision change ENT: Denies: Head Aches, Ear Pain Skin: Denies: Rash, Lesions Pulmonary: Denies: Dyspnea, Cough Cardiovascular: Denies: Chest Pain, Palpitations, Orthopnea Gastrointestinal: Denies: Nausea, Vomiting, Abdominal Pain Genitourinary: Denies: Dysuria, Frequency, Incontinence Hematologic: Denies: Bleeding Excessively Musculoskeletal: Denies: Neck Pain Objective Physical Examination General Exam: Positive: Alert, No Acute Distress Eye Exam: Positive: PERRLA, Conjunctiva & lids normal, EOMI, Negative: Sclera icteric ENT Exam: Positive: Atraumatic, Mucous membr. moist/pink Neck Exam: Positive: Supple, Negative: JVD, thyromegaly Chest Exam: Positive: Clear to auscultation, Normal air movement Heart Exam: Positive: Rate Normal, Regular Rhythm, Normal S1, Normal S2, Negative: Murmurs, Rubs Telemetry: Positive: No significant arrhythmia Abdomen Exam: Positive: Normal bowel sounds, Soft, Negative: Tenderness, Hepatospenomegaly Extremity Exam: Positive: Normal pulses, Negative: Clubbing, Cyanosis, Edema Skin Exam: Positive: Nl turgor and temperature, Negative: Breakdown, Lesion Neuro Exam: Positive: Normal Speech, Strength at 5/5 X4 ext, Normal Tone, Sensation Intact, Cranial Nerves 3-12 NL Psych Exam: Positive: Oriented x 3, Other (not oriented poorly following commands) Assessment /Plan Assessment 56-year-old man h/o etoh abuse, smoking, with likely poorly differentiated non- small cell likely lung cancer with brain metastasis status post surgical resection Problems (1) Neoplasm of brain causing mass effect on adjacent structures Status: Acute Problem Text: Poorly differentiated non-small cell likely lung cancer with mets to brain patient will f/u outpatient with Clayton Borrego and [place]. Not safe by PT at this time, also has been evicted from home and has no place to live right now. CT scan of the brain showed large cerebellar mass 4 x 2.5 cm encompassing fourth ventricle. The vasogenic edema and mass effect. Neurosurgery was consulted. Patient was started on IV Decadron, s/p resection , POD 5, repeat CTs appreciated. f/u Neurosurg rec Okay to start DVT ppx heparin sq as per Dr Flores (2) Tobacco abuse Problem Text: Continue with nicotine patch (3) Alcohol withdrawal Problem Text: no evidence of DT, MVI, folic acid, thiamine counseling (4) Lung cancer Problem Text: Follow-up oncology, thoracic surgery Dr Arnold Plan/VTE VTE Prophylaxis Ordered?: Yes (heparin SQ given active cancer) Plan IVF: Initiate Diet: Continue Current Activity: Continue Current Anticipated Discharge: Home Disposition pt and PFS VS, I&O, 24H, Fishbone Vital Signs/I&O Vital Signs Date Time Temp Pulse Resp B/P (MAP) Pulse Ox O2 Delivery O2 Flow Rate FiO2 08/31/16 14:00 99.5 91 18 130/73 (92) 97 Room Air 08/27/16 03:00 2.0 I&O- Last 24 Hours up to 6 AM 08/31/16 06:00 Intake Total 3000 ml Output Total 525 ml Balance 2475 ml Laboratory Data 24H LABS Laboratory Tests 2 08/31/16 08:17: Anion Gap 6L, Glomerular Filtration Rate > 60.0, Blood Urea Nitrogen 16, Creatinine 0.58L, Sodium Level 139, Potassium Level 4.3, Chloride Level 106, Carbon Dioxide Level 27, Calcium Level 8.3L, Magnesium Level 2.4 CBC/BMP Laboratory Tests 08/31/16 08:17 Red Blood Count 3.96 L, Mean Corpuscular Volume 97.0 H, Mean Corpuscular Hemoglobin 32.0, Mean Corpuscular Hemoglobin Concent 33.0, Red Cell Distribution Width 14.0, Calcium Level 8.3 L Microbiology Microbiology 08/26/16 Fungal Smear - Final, Resulted 08/26/16 Fungal Culture, Resulted Pending 08/26/16 Gram Stain - Final, Complete 08/26/16 Wound Culture - Final, Complete Enterococcus Faecalis 08/26/16 Anaerobic Culture - Final, Complete NENITA KENDRICK MD Aug 31, 2016 18:11
[2016-08-31 22:00] VITALS: BP 125/79
[2016-09-01] MEDS: dexameTHASONE 4 MG/ML 1ML VIAL (J1100) IV SCH ×4 (04:27→23:03)
[2016-09-01 06:00] VITALS: BP 155/86
[2016-09-01 06:50] LABS: MEAN CORPUSCULAR HEMOGLOBIN 33.1 pg (27.0-33.0); MEAN CORPUSCULAR HGB CONC 34.2 g/dl (32.0-36.5); MEAN CORPUSCULAR VOLUME 96.8 fl (80.0-96.0); RED CELL DISTRIBUTION WIDTH 14.1 % (11.5-14.5)
[2016-09-01 07:05] LABS: ANION GAP 5 MEQ/L (8-16); BLOOD UREA NITROGEN 17 MG/DL (7-18); CALCIUM LEVEL 8.3 MG/DL (8.5-10.1); CARBON DIOXIDE LEVEL 28 MEQ/L (21-32); CHLORIDE LEVEL 104 MEQ/L (98-107); CREATININE FOR GFR 0.65 MG/DL (0.70-1.30); GLOMERULAR FILTRATION RATE > 60.0 (>56); GLUCOSE, FASTING 126 MG/DL (70-105); MAGNESIUM LEVEL 2.2 MG/DL (1.8-2.4); SODIUM LEVEL 137 MEQ/L (136-145)
[2016-09-01] MEDS: HEPARIN SOD (PORCINE) 5000 UNITS/ML VIAL SQ SCH ×2 (09:23→21:05)
[2016-09-01] MEDS: THIAMINE 100 MG TAB PO SCH (09:23)
[2016-09-01] MEDS: MULTIVITAMINS/MINERALS THERAP 1 TAB PO SCH (09:23)
[2016-09-01] MEDS: FOLIC ACID 1 MG TAB PO SCH (09:23)
[2016-09-01] MEDS: SANTYL OINT 30GM TOP SCH (09:23)
[2016-09-01] MEDS: NICOTINE 14 MG/24 HR TRANSDERMAL TD SCH (09:24)
[2016-09-01 10:00] VITALS: BP 135/78
[2016-09-01 14:00] VITALS: BP 140/75
--- NOTE | 2016-09-01 17:49 | IPNPDOC ---
Subjective Date Seen The patient was seen on 09/01/16. Subjective Chief Complaint/HPI The patient is a 56-year-old male admitted with a reason for visit of Altered Mental State,Neoplam Of Brain. Events since last encounter Patient upset about his care, wanted to leave the hospital. informed by PT that patient refused walker. counseling provider that patient need walker for safety and stability. Concerned that patient dose not know the name of the physicians he has to see and the tests he has to do, PET scan and pulmonary function test. The need for an outpatient PET scan was reinforced multiple times. Constitutional: Denies: Chills, Fever, Malaise Eyes: Denies: Pain ENT: Denies: Head Aches, Dysphagia Skin: Denies: Rash, Lesions Pulmonary: Denies: Dyspnea, Cough Cardiovascular: Denies: Chest Pain, Palpitations Gastrointestinal: Denies: Nausea, Vomiting, Abdominal Pain, Diarrhea, Constipation Genitourinary: Denies: Dysuria, Frequency Hematologic: Denies: Bruising Objective Physical Examination General Exam: Positive: Alert, No Acute Distress Eye Exam: Positive: PERRLA, Conjunctiva & lids normal, EOMI, Negative: Sclera icteric ENT Exam: Positive: Atraumatic, Mucous membr. moist/pink Neck Exam: Positive: Supple, Negative: JVD, thyromegaly Chest Exam: Positive: Clear to auscultation, Normal air movement Heart Exam: Positive: Rate Normal, Regular Rhythm, Normal S1, Normal S2, Negative: Gallops, Murmurs, Rubs Telemetry: Positive: No significant arrhythmia Abdomen Exam: Positive: Normal bowel sounds, Soft, Negative: Tenderness, Hepatospenomegaly Extremity Exam: Positive: Normal pulses, Negative: Clubbing, Cyanosis, Edema Skin Exam: Positive: Nl turgor and temperature, Negative: Breakdown, Lesion Neuro Exam: Positive: Normal Speech, Strength at 5/5 X4 ext, Normal Tone, Sensation Intact, Cranial Nerves 3-12 NL Psych Exam: Positive: Oriented x 3, Other (not oriented poorly following commands) Assessment /Plan Assessment 56-year-old man h/o etoh abuse, smoking, with likely 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 Tadeo, Clayton, and Mark. Not safe by PT at this time, also has been evicted from home and has no place to live right now. CT scan of the brain showed large cerebellar mass 4 x 2.5 cm encompassing fourth ventricle. The vasogenic edema and mass effect. Neurosurgery was consulted. Patient was started on IV Decadron, s/p resection , POD 6, repeat CTs appreciated. f/u Neurosurg rec Okay to start DVT ppx heparin sq as per Dr Flores d/w with sister Twila, patient has distanced himself with alot of the family, unfortunately, patient would not be able to live with a family, neither would be family able to coordinate care and management patient's appointment. given patient's memory problem and poor compliance, safe discharge with reasonable followup by patient is questionable. Psych consulted, patient has capacity making medical decision as per Dr Steve, PFS consulted. will escalate to see if further workup of the patients malignancy , PET scan and pulmonary function test could be done as inpatient. Dr Arnold and Dr Tadeo informed (2) Tobacco abuse Problem Text: Continue with nicotine patch (3) Alcohol withdrawal Problem Text: no evidence of DT, MVI, folic acid, thiamine counseling (4) Lung cancer Problem Text: Follow-up oncology, thoracic surgery Dr Arnold refer to above (5) Poor compliance Problem Text: psych consulted, counseling provider memory issue 2/2 to chronic ETOH abuse, Plan/VTE VTE Prophylaxis Ordered?: Yes (heparin SQ given active cancer) Plan IVF: Initiate Diet: Continue Current Activity: Continue Current Anticipated Discharge: Home Disposition patient demonstrated poor memory, not compliance with pt while inpatient, major concern from myself and family whether patient would followup after DC. PFS consult, Psych consulted. will escalate. VS, I&O, 24H, Fishbone Vital Signs/I&O Vital Signs Date Time Temp Pulse Resp B/P (MAP) Pulse Ox O2 Delivery O2 Flow Rate FiO2 09/01/16 14:00 97.6 92 16 140/75 (96) 96 Room Air 08/27/16 03:00 2.0 I&O- Last 24 Hours up to 6 AM 09/01/16 05:59 Intake Total 3240 ml Output Total 2550 ml Balance 690 ml Laboratory Data 24H LABS Laboratory Tests 2 09/01/16 06:33: Anion Gap 5L, Glomerular Filtration Rate > 60.0, Blood Urea Nitrogen 17, Creatinine 0.65L, Sodium Level 137, Potassium Level 4.0, Chloride Level 104, Carbon Dioxide Level 28, Calcium Level 8.3L, Magnesium Level 2.2 CBC/BMP Laboratory Tests 09/01/16 06:33 Red Blood Count 3.76 L, Mean Corpuscular Volume 96.8 H, Mean Corpuscular Hemoglobin 33.1 H, Mean Corpuscular Hemoglobin Concent 34.2, Red Cell Distribution Width 14.1, Calcium Level 8.3 L Microbiology Microbiology 08/26/16 Fungal Smear - Final, Resulted 08/26/16 Fungal Culture, Resulted Pending 08/26/16 Gram Stain - Final, Complete 08/26/16 Wound Culture - Final, Complete Enterococcus Faecalis 08/26/16 Anaerobic Culture - Final, Complete NENITA KENDRICK MD Sep 01, 2016 17:49
[2016-09-01 20:40] VITALS: BP 145/73
[2016-09-02] MEDS: dexameTHASONE 4 MG/ML 1ML VIAL (J1100) IV SCH (05:05)
[2016-09-02 06:05] VITALS: BP 140/71
[2016-09-02 06:09] LABS: MEAN CORPUSCULAR HEMOGLOBIN 32.8 pg (27.0-33.0); MEAN CORPUSCULAR HGB CONC 33.9 g/dl (32.0-36.5); MEAN CORPUSCULAR VOLUME 96.9 fl (80.0-96.0); RED CELL DISTRIBUTION WIDTH 14.6 % (11.5-14.5); WHITE BLOOD COUNT 16.2 K/mm3 (4.0-10.0)
[2016-09-02 06:25] LABS: ANION GAP 8 MEQ/L (8-16); BLOOD UREA NITROGEN 14 MG/DL (7-18); CALCIUM LEVEL 8.3 MG/DL (8.5-10.1); CARBON DIOXIDE LEVEL 26 MEQ/L (21-32); CHLORIDE LEVEL 104 MEQ/L (98-107); CREATININE FOR GFR 0.61 MG/DL (0.70-1.30); GLOMERULAR FILTRATION RATE > 60.0 (>56); GLUCOSE, FASTING 126 MG/DL (70-105); MAGNESIUM LEVEL 2.3 MG/DL (1.8-2.4); POTASSIUM SERUM 4.2 MEQ/L (3.5-5.1); SODIUM LEVEL 138 MEQ/L (136-145)
--- NOTE | 2016-09-02 06:55 | PMRCR ---
DATE OF CONSULTATION: 09/01/2016 REQUESTING PHYSICIAN: Dr. 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 The patient was originally admitted to the emergency room (ER) for mental status changes. According to the chart the patient was confused and complained of generalized weakness and lethargy for the last couple of weeks. As above the patient has a history of heavy alcohol abuse. During the interview the patient reports that he drinks about one case of beer daily, also reports the use of marijuana. This psychiatric consultation is for evaluation of capacity and evaluation of the mental status change. During the interview today the patient is laying in bed, is calm and cooperative. He has problems with memory. He was disoriented in time, but not in place and situation. The patient reports that he needs to get treatment for "cancer in my brain, in my jaw and other places." At first he did not recall that the patient has also a lung carcinoma. I tested his memory and he is unable to recall the date after three minutes. The patient recalls the year but not the month or the day of the week. The patient reports that his only psychiatric history is secondary to his alcohol dependency and mood changes when he drinks. He stated that he had eight inpatient problems for detox/rehabilitation in the past. The patient denies depression at this point. The patient denies suicidal ideation. There is no evidence of psychotic symptoms, no auditory or visual hallucinations or delusions. The patient lives by himself. He says that he does not speak with his family for a long time. The patient is single with no children, never . PAST MEDICAL HISTORY: 1. Cerebellar brain mass that has been resected in the hospital at this time. 2. He also has a poorly differentiated non-small cell carcinoma of the lung and has been seeing Dr. Tadeo and Dr. Arnold as consultation here in the hospital. 3. The patient has a left hip wound. PAST PSYCHIATRIC HISTORY: As above. The patient has a long history of severe alcohol dependency. FAMILY HISTORY: Unremarkable. SOCIAL HISTORY: The patient was raised by his parents. He reports a completely normal childhood. He said "my parents were protective." He stated that he quit high school but he then got his general education diploma (GED). He is now living alone, gets Social Security Disability (SSD) and food stamps. He stated that he has done many jobs in the past but had difficultly keeping them because of the alcohol abuse. LABORATORY DATA: CBC shows white blood cells of 14, RBC of 3.76, hemoglobin 12.5, hematocrit 36.5, MCV 96.8. His BMP is unremarkable except calcium of 8.3. His urine drug screen was negative. Blood alcohol level was also negative on admission. MENTAL STATUS EXAMINATION: The patient is dressed in [facility]. The patient is calm and cooperative during the interview. Speech is clear and coherent with normal rate and is spontaneous. He has good eye contact. Mood is euthymic. Affect is appropriate and congruent with mood. The patient is disoriented in time but oriented to place, person and situation. Attention, concentration and memory are impaired. No auditory or visual hallucinations. No delusions. The patient does not have feelings of paranoia. The patient is denying suicidal or homicidal ideation. Insight and judgment are fair during the interview. RECOMMENDATIONS: 1. The patient does not meet criteria for psychiatric inpatient hospitalization. 2. The management is going to be difficult in light of his poor support. The patient wants to get better, is willing to go through the treatment for his brain and lung cancer. He is willing to go for the appointments at this point. However, in light of his past history he is not sure if he is going to be able to remain sober. He says that he wants to come to the appointments, that he does not live far away and is willing to do so. He says that he wants to fight for his life and fight the cancer. 3. It will be very beneficial if we can get the family involved in support making sure that the patient remains sober and that they help him to come to the hospital for appointments and treatments. cc: Justyna Magdaleno MD
[2016-09-02] MEDS: THIAMINE 100 MG TAB PO SCH (09:09)
[2016-09-02] MEDS: NICOTINE 14 MG/24 HR TRANSDERMAL TD SCH (09:09)
[2016-09-02] MEDS: FOLIC ACID 1 MG TAB PO SCH (09:09)
[2016-09-02] MEDS: MULTIVITAMINS/MINERALS THERAP 1 TAB PO SCH (09:09)
[2016-09-02] MEDS: HEPARIN SOD (PORCINE) 5000 UNITS/ML VIAL SQ SCH ×2 (09:09→20:08)
[2016-09-02] MEDS: SANTYL OINT 30GM TOP SCH (09:38)
--- NOTE | 2016-09-02 11:24 | IPN ---
DATE OF SERVICE: 09/02/2016 I was requested to re-evaluate this patient that I saw yesterday in consultation. Patient is asking to leave against medical advice (AMA) and has been angry, agitated, and threatening. During the interview today, patient remained angry, uncooperative, threatening, with intensive stare and agitated. I was not able to redirect the patient. I was not able to calm him down. He is focused on leaving the hospital. Patient, at this point, is not invested in conversation or discuss his treatment plan. When I asked him what he wanted to do to treat his cancer, he became even more angry and threatening. He stated, "The only thing I need is an elevator." There was no evidence of psychotic symptoms. No auditory or visual hallucinations or delusions, but his emotions were highly affected by his anger, and his decision making at this point is affected by the above, and his judgment call is impaired. MENTAL STATUS EXAMINATION: Patient dressed in casual cloths. Patient is uncooperative, irritable, impulsive, displaying threatening behavior. Speech is fast, yelling. Mood is anxious. Affect is angry. No delusions or hallucinations. I could not test attention, concentration, and memory. No evidence of delusions or hallucinations. Insight and judgment are poor. ASSESSMENT/PROBLEM LIST: 1. Agitation. 2. Impulsiveness. 3. Alcohol dependency. RECOMMENDATIONS: At this point, patient does not have capacity to understand or take decisions about the treatment of his medical condition. He remains angry, labile, impulsive, and threatening, and is unable to process the information correctly. I discussed the case with Dr. Magdaleno. Dr. Magdaleno has been in touch with the family, and the family stated that they want to help, but they also said that the patient has burned his bridges with them so the amount of help they want to provide is limited to some degree of supervision when he is at home, but they said they cannot be there on a daily basis.
[2016-09-02 14:00] VITALS: BP 124/60
[2016-09-02] MEDS ORDERED: dexameTHASONE 4 MG/ML 1ML VIAL (J1100) IV SCH (17:00)
--- NOTE | 2016-09-02 17:48 | IPNPDOC ---
Subjective Date Seen The patient was seen on 09/02/16. Subjective Chief Complaint/HPI The patient is a 56-year-old male admitted with a reason for visit of Altered Mental State,Neoplam Of Brain. Events since last encounter Agitated this am, Wondering in the [address], Demanded to be leased from the hospital, Refused to say why. Wanted an Elevator, Refused to comment on what he wants to do for cancer. Still dose not remember that he needs to do a PET scan upon dc despite the fact that it is reinforced multiple times in the past 2 days , denied abd pain/v/n/cp/f/c Constitutional: Denies: Chills, Fever Pulmonary: Denies: Dyspnea, Cough Cardiovascular: Denies: Chest Pain, Palpitations Gastrointestinal: Denies: Nausea, Vomiting, Abdominal Pain, Diarrhea, Constipation Neurological: Denies: Weakness, Numbness Psych: Reports: Memory Issues, Anger Objective Physical Examination General Exam: Positive: Alert, No Acute Distress Eye Exam: Positive: PERRLA, Conjunctiva & lids normal, EOMI, Negative: Sclera icteric ENT Exam: Positive: Atraumatic, Mucous membr. moist/pink Neck Exam: Positive: Supple, Negative: JVD, thyromegaly Chest Exam: Positive: Clear to auscultation, Normal air movement Heart Exam: Positive: Rate Normal, Regular Rhythm, Normal S1, Normal S2, Negative: Gallops, Murmurs, Rubs Telemetry: Positive: No significant arrhythmia Abdomen Exam: Positive: Normal bowel sounds, Soft, Negative: Tenderness, Hepatospenomegaly Extremity Exam: Positive: Normal pulses, Negative: Clubbing, Cyanosis, Edema Skin Exam: Positive: Nl turgor and temperature, Negative: Breakdown, Lesion Neuro Exam: Positive: Normal Speech, Strength at 5/5 X4 ext, Normal Tone, Sensation Intact, Cranial Nerves 3-12 NL Psych Exam: Positive: Oriented x 3, Other (poor memory, ) Assessment /Plan Assessment 56-year-old man h/o etoh abuse, smoking, with 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 The vasogenic edema and mass effect. Neurosurgery was consulted. Patient was started on IV Decadron, s/p resection , POD 7, repeat CTs appreciated. f/u Neurosurg rec Path showed Poorly differentiated non-small cell likely lung cancer with mets to brain patient is suppose to f/u outpatient with Dr. Tadeo, Clayton, and Mark. Not safe by PT at this time, also has been evicted from home and has no place to live right now. severe memory issue and personality issue, not safe dc, cancer navigtor consulted Okay to start DVT ppx heparin sq as per Dr Flores d/w with sister Twila, patient has distanced himself with alot of the family, unfortunately, patient would not be able to live with a family, neither would be family able to coordinate care and management patient's appointment. given patient's memory problem and poor compliance, safe discharge with reasonable followup by patient is questionable. Psych consulted, and followup, DW Dr Steve, PFS consulted. patient lack capacity, PFS involved, d/w Dr Arnold to find reasonable alternatives, Family is aware that the active personality and psychiatric issue could delay patient' s care for cancer (2) Tobacco abuse Problem Text: Continue with nicotine patch (3) Alcohol withdrawal Problem Text: no evidence of DT, MVI, folic acid, thiamine counseling (4) Lung cancer Problem Text: Follow-up oncology, thoracic surgery Dr Arnold refer to above (5) Poor compliance Problem Text: psych consulted, counseling provider memory issue 2/2 to chronic ETOH abuse, (6) Unstageable pressure sore Problem Text: collagenase, Dr Hinojosa consulted for possible debridement. PT wound care (7) Dementia Problem Text: associated with ETOH Plan/VTE VTE Prophylaxis Ordered?: Yes (heparin SQ given active cancer) Plan IVF: Initiate Diet: Continue Current Activity: Continue Current Anticipated Discharge: Home Disposition PFS, followup with Dr Arnold, PT. VS, I&O, 24H, Fishbone Vital Signs/I&O Vital Signs Date Time Temp Pulse Resp B/P (MAP) Pulse Ox O2 Delivery O2 Flow Rate FiO2 09/02/16 14:00 97.7 88 18 124/60 (81) 96 Room Air 08/27/16 03:00 2.0 I&O- Last 24 Hours up to 6 AM 09/02/16 06:00 Intake Total 3240 ml Output Total 2100 ml Balance 1140 ml Laboratory Data 24H LABS Laboratory Tests 2 09/02/16 05:53: Anion Gap 8, Glomerular Filtration Rate > 60.0, Blood Urea Nitrogen 14, Creatinine 0.61L, Sodium Level 138, Potassium Level 4.2, Chloride Level 104, Carbon Dioxide Level 26, Calcium Level 8.3L, Magnesium Level 2.3 CBC/BMP Laboratory Tests 09/02/16 05:53 Red Blood Count 3.66 L, Mean Corpuscular Volume 96.9 H, Mean Corpuscular Hemoglobin 32.8, Mean Corpuscular Hemoglobin Concent 33.9, Red Cell Distribution Width 14.6 H, Calcium Level 8.3 L Microbiology Microbiology 08/26/16 Fungal Smear - Final, Resulted 08/26/16 Fungal Culture, Resulted Pending 08/26/16 Gram Stain - Final, Complete 08/26/16 Wound Culture - Final, Complete Enterococcus Faecalis 08/26/16 Anaerobic Culture - Final, Complete NENITA KENDRICK MD Sep 02, 2016 17:48
[2016-09-02 20:50] VITALS: BP 128/76
[2016-09-03 05:15] VITALS: BP 139/77
[2016-09-03 05:17] LABS: MEAN CORPUSCULAR HEMOGLOBIN 33.7 pg (27.0-33.0); MEAN CORPUSCULAR HGB CONC 34.6 g/dl (32.0-36.5); MEAN CORPUSCULAR VOLUME 97.3 fl (80.0-96.0); RED CELL DISTRIBUTION WIDTH 14.9 % (11.5-14.5); WHITE BLOOD COUNT 14.6 K/mm3 (4.0-10.0)
[2016-09-03 05:35] LABS: ANION GAP 8 MEQ/L (8-16); BLOOD UREA NITROGEN 15 MG/DL (7-18); CALCIUM LEVEL 8.1 MG/DL (8.5-10.1); CARBON DIOXIDE LEVEL 27 MEQ/L (21-32); CHLORIDE LEVEL 103 MEQ/L (98-107); CREATININE FOR GFR 0.66 MG/DL (0.70-1.30); GLOMERULAR FILTRATION RATE > 60.0 (>56); GLUCOSE, FASTING 98 MG/DL (70-105); MAGNESIUM LEVEL 2.3 MG/DL (1.8-2.4); POTASSIUM SERUM 4.3 MEQ/L (3.5-5.1); SODIUM LEVEL 138 MEQ/L (136-145)
[2016-09-03] MEDS: MULTIVITAMINS/MINERALS THERAP 1 TAB PO SCH (09:18)
[2016-09-03] MEDS: FOLIC ACID 1 MG TAB PO SCH (09:18)
[2016-09-03] MEDS: THIAMINE 100 MG TAB PO SCH (09:18)
[2016-09-03] MEDS: HEPARIN SOD (PORCINE) 5000 UNITS/ML VIAL SQ SCH ×2 (09:19→20:08)
[2016-09-03] MEDS: NICOTINE 14 MG/24 HR TRANSDERMAL TD SCH (09:19)
[2016-09-03] MEDS: SANTYL OINT 30GM TOP SCH (09:20)
[2016-09-03] MEDS ORDERED: DOCUSATE SODIUM 100 MG CAP PO PRN (12:30)
--- NOTE | 2016-09-03 13:23 | IPNPDOC ---
Date Seen The patient was seen on 09/03/16. Progress Note NEUROSURGERY Admission day #: 11 (08/23/16) Post-op Day #: 8 Pain control: Tylenol 500 mg PO q 4 hrs PRN, morphine 2 mg IV q 4 hrs PRN. Per nursing, has not been asking for pain meds. Surgical procedure: 08/26/16. Bilateral sub occipital craniectomy with excision of large mass, frozen section report is undifferentiated carcinoma, probably from lung. Over 24 hrs: No acute changes. He as been doing well, per nursing. His mood has been stable. PT has cleared him yesterday. SUBJECTIVE Mr Sánchez is a pleasant 56-year-old male with history of alcohol dependency who had presented to the emergency department with a chief complaint of altered mental status. CT of the head revealed a right cerebellar mass with vasogenic edema. He was admitted on 08/23/16. Today, he states he is doing well with no complaints. He denies any pain. He states his incision is itchy. He denies fever, chills, headache, or issues with his gait. OBJECTIVE Clinical status: AVSS Neurological status: Alert and orientated x3. GCS= [id number]= 15. Speech is fluent. Wound/incision: Incision appears to be healing well. No increased drainage, erythema, or increased pain at the site. Drainage: None. line camera operator= intact. Motor: R=L=5/5=UE=LE. No pronator drift. Sensory: Intact to light touch in all 4 extremities, R=L=UE=LE. Gait= ambulating without difficulty. LABS: WBC= 14.6, improved from yesterday 16.2. HGB= 12.3 Na+= 138, stable K+= 4.3, stable MICRO/PATH: 08/26/16. wound culture: pos E. Flavia 08/26/16. Sample: AB: Poorly differentiated metastatic non-small cell carcinoma. Sample: C: Brain tumor, excision: Metastatic poorly differentiated non- small cell carcinoma with extensive areas of necrosis in cerebellum. ASSESSMENT Patient stable PLAN 1. Fossa mass lesion: Most likely malignant. Recommend radiotherapy. Lung OR by thoracic surgeon. 2. Wound care: Per Dr Arnold and Dr Salcido. Plans for wound debridement today. 3. Pain control: Satisfactory. 4. DVT prophylaxis: heparin 5,000 units SQ BID 5. Constipation prophylaxis: start colace PRN 6. Diet: as tolerated. 7. Activity: as tolerated, with supervision of sitter. 8. D/C plan: per social worker palliative care. 9. Hospitalist involved with patient. No neurosurgical recommendations at this time. He is stable. No need for everyday attending. Call to NSx service if any change or decrease in conscious, seizure, or focal deficits. Thank you for all providers for your much appreciated help regarding care of Mr Sánchez. Dr Tish Morse, RPA-C VS, I&O, 24H, Fishbone Vital Signs/I&O Vital Signs Date Time Temp Pulse Resp B/P (MAP) Pulse Ox O2 Delivery O2 Flow Rate FiO2 09/03/16 05:15 97.3 75 18 139/77 (97) 97 Room Air I&O- Last 24 Hours up to 6 AM 09/03/16 06:00 Intake Total 3360 ml Output Total 1750 ml Balance 1610 ml Laboratory Data 24H LABS Laboratory Tests 2 09/03/16 04:58: Anion Gap 8, Glomerular Filtration Rate > 60.0, Blood Urea Nitrogen 15, Creatinine 0.66L, Sodium Level 138, Potassium Level 4.3, Chloride Level 103, Carbon Dioxide Level 27, Calcium Level 8.1L, Magnesium Level 2.3 CBC/BMP Laboratory Tests 09/03/16 04:58 Red Blood Count 3.65 L, Mean Corpuscular Volume 97.3 H, Mean Corpuscular Hemoglobin 33.7 H, Mean Corpuscular Hemoglobin Concent 34.6, Red Cell Distribution Width 14.9 H, Calcium Level 8.1 L Microbiology Microbiology 08/26/16 Fungal Smear - Final, Resulted 08/26/16 Fungal Culture, Resulted Pending 08/26/16 Gram Stain - Final, Complete 08/26/16 Wound Culture - Final, Complete Enterococcus Faecalis 08/26/16 Anaerobic Culture - Final, Complete LIANET MORSE PA-C Sep 03, 2016 11:37
--- NOTE | 2016-09-03 13:46 | REP ---
CT of the chest without IV contrast for follow up of lung nodules: Comparisons are 09/30/2058 01/27/2017. There is a spiculated nodule in the apex of the right lung on image 24 today measuring 2.1 x 1.3 cm. This measured 7.6 cm and 09/30/2014 and is not significantly changed from 08/22/2016. There is a ground-glass nodule posteriorly in the right upper lobe on image 37 measuring 11 mm. This measured 10 mm on 09/30/2014 and is unchanged 08/22/2016. There is a 10 mm spiculated nodule in the right middle lobe on image 57. This measured 5 mm and 09/30/2014 and is unchanged from 08/22/2016. There is a 8 mm nodule in the right infrahilar zone on image 66. This measured 9 mm 09/30/2014 and as a change from 08/22 2016. There is a 11 mm nodule in the left lower lobe on image 69. This measured 6 mm on 09/30/2014 and is not significantly changed from 08/22 2016. No new lung nodules are identified. Extensive bullous replacement lung parenchyma is again identified. There is dependent atelectasis in the the lower lobes bilaterally. There is no mediastinal adenopathy. No axillary adenopathy. In the absence of IV contrast the study is insensitive for hilar adenopathy. There is a focal fluid collection along the anterior pericardium measuring 70 mm transversely by 9 mm in depth, possibly a pericardial cyst. No pericardial effusion is identified. Cardiac size is normal. The unenhanced thoracic aorta is unremarkable. On 09/30/2014 there was evidence for hepato steatosis. This is no longer present on the current study. The visualized upper abdominal contents are unremarkable. There is no adrenal mass. Impression: There are multiple lung nodules as discussed in detail body of the report. Most of these nodules has have increased in size. Additionally, the spiculated nodule in the apex of the right lung is considered suspicious. There is also increased in size. Therefore, follow-up PET scan might be considered for further evaluation of these nodules, particularly the spiculated nodule in the right apex. Signed by James Buchanan MD 09/03/2016 01:36 P
[2016-09-03 14:00] VITALS: BP 129/63
--- NOTE | 2016-09-03 16:30 | IPNPDOC ---
Subjective Date Seen The patient was seen on 09/03/16. Subjective Chief Complaint/HPI The patient is a 56-year-old male admitted with a reason for visit of Altered Mental State,Neoplam Of Brain. Events since last encounter No acute events overnight. more pleasant. Denied CP/ABD pain/n/v/d/f/c. Constitutional: Denies: Chills, Fever Eyes: Denies: Pain, Vision change ENT: Denies: Head Aches Skin: Denies: Rash Pulmonary: Denies: Dyspnea, Cough Cardiovascular: Denies: Chest Pain, Palpitations, Orthopnea Gastrointestinal: Denies: Nausea, Vomiting, Abdominal Pain, Diarrhea, Constipation Objective Physical Examination General Exam: Positive: Alert, No Acute Distress Eye Exam: Positive: PERRLA, Conjunctiva & lids normal, EOMI, Negative: Sclera icteric ENT Exam: Positive: Atraumatic, Mucous membr. moist/pink Neck Exam: Positive: Supple, Negative: JVD, thyromegaly Chest Exam: Positive: Clear to auscultation, Normal air movement Heart Exam: Positive: Rate Normal, Regular Rhythm, Normal S1, Normal S2, Negative: Gallops, Murmurs, Rubs Telemetry: Positive: No significant arrhythmia Abdomen Exam: Positive: Normal bowel sounds, Soft, Negative: Tenderness, Hepatospenomegaly Extremity Exam: Positive: Normal pulses, Negative: Clubbing, Cyanosis, Edema Skin Exam: Positive: Nl turgor and temperature, Negative: Breakdown, Lesion Neuro Exam: Positive: Normal Speech, Strength at 5/5 X4 ext, Normal Tone, Sensation Intact, Cranial Nerves 3-12 NL Psych Exam: Positive: Oriented x 3, Other (poor memory, ) Assessment /Plan Assessment 56-year-old man h/o etoh abuse, smoking, with 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 The vasogenic edema and mass effect. Neurosurgery was consulted. Patient was started on IV Decadron, s/p resection , POD 8, repeat CTs appreciated. f/u Neurosurg rec Okay to start DVT ppx heparin sq as per Dr Flores Path showed Poorly differentiated non-small cell likely lung cancer with mets to brain patient is suppose to f/u outpatient with Dr. Tadeo, Clayton, and Mark. also has been evicted from home and has no place to live right now. severe memory issue and personality issue, not safe dc, cancer navigtor consulted, case management consulted d/w with sister Twila, and brother Nicko patient has distanced himself with alot of the family, unfortunately, patient would not be able to live with a family, neither would be family able to coordinate care and management patient' s appointment. given patient's memory problem and poor compliance, safe discharge with reasonable followup by patient is questionable. Psych consulted, and followup, DW Dr Steve, PFS consulted. patient lack capacity, PFS involved, d/w Dr Arnold to find reasonable alternatives, Family is aware that the active personality and psychiatric issue could delay patient' s care for cancer (2) Tobacco abuse Problem Text: Continue with nicotine patch (3) Alcohol withdrawal Problem Text: no evidence of DT, MVI, folic acid, thiamine counseling (4) Lung cancer Problem Text: Follow-up oncology Dr Tadeo, thoracic surgery Dr Arnold refer to above Dr Matute d/w Dr babs LEAL, special approval granted for PET scan scheduled for Tuesday 1:30 PFT spirometry ordered I- logic Lung CT (5) Poor compliance Problem Text: psych consulted, counseling provider memory issue 2/2 to chronic ETOH abuse, (6) Unstageable pressure sore Problem Text: collagenase, Dr Hinojosa consulted for possible debridement. PT wound care (7) Dementia Problem Text: associated with ETOH Plan/VTE VTE Prophylaxis Ordered?: Yes (heparin SQ given active cancer) Plan IVF: Initiate Diet: Continue Current Activity: Continue Current Anticipated Discharge: Home Disposition PET scan Tuesday 1:30PM, Spirometry PFT, Passed PT. VS, I&O, 24H, Fishbone Vital Signs/I&O Vital Signs Date Time Temp Pulse Resp B/P (MAP) Pulse Ox O2 Delivery O2 Flow Rate FiO2 09/03/16 14:00 99.0 96 18 129/63 (85) 96 Room Air I&O- Last 24 Hours up to 6 AM 09/03/16 06:00 Intake Total 3360 ml Output Total 1750 ml Balance 1610 ml Laboratory Data 24H LABS Laboratory Tests 2 09/03/16 04:58: Anion Gap 8, Glomerular Filtration Rate > 60.0, Blood Urea Nitrogen 15, Creatinine 0.66L, Sodium Level 138, Potassium Level 4.3, Chloride Level 103, Carbon Dioxide Level 27, Calcium Level 8.1L, Magnesium Level 2.3 CBC/BMP Laboratory Tests 09/03/16 04:58 Red Blood Count 3.65 L, Mean Corpuscular Volume 97.3 H, Mean Corpuscular Hemoglobin 33.7 H, Mean Corpuscular Hemoglobin Concent 34.6, Red Cell Distribution Width 14.9 H, Calcium Level 8.1 L Microbiology Microbiology 08/26/16 Fungal Smear - Final, Resulted 08/26/16 Fungal Culture, Resulted Pending 08/26/16 Gram Stain - Final, Complete 08/26/16 Wound Culture - Final, Complete Enterococcus Faecalis 08/26/16 Anaerobic Culture - Final, Complete NENITA KENDRICK MD Sep 03, 2016 16:30
[2016-09-03] MEDS: ACETAMINOPHEN 500 MG TAB PO PRN (18:24)
[2016-09-03 21:05] VITALS: BP 122/57
[2016-09-04 05:15] VITALS: BP 131/61
[2016-09-04 05:37] LABS: MEAN CORPUSCULAR HEMOGLOBIN 33.8 pg (27.0-33.0); MEAN CORPUSCULAR HGB CONC 34.4 g/dl (32.0-36.5); MEAN CORPUSCULAR VOLUME 98.1 fl (80.0-96.0); RED CELL DISTRIBUTION WIDTH 15.2 % (11.5-14.5); WHITE BLOOD COUNT 15.3 K/mm3 (4.0-10.0)
[2016-09-04 06:03] LABS: ANION GAP 5 MEQ/L (8-16); BLOOD UREA NITROGEN 16 MG/DL (7-18); CALCIUM LEVEL 8.4 MG/DL (8.5-10.1); CARBON DIOXIDE LEVEL 29 MEQ/L (21-32); CHLORIDE LEVEL 104 MEQ/L (98-107); CREATININE FOR GFR 0.66 MG/DL (0.70-1.30); GLOMERULAR FILTRATION RATE > 60.0 (>56); GLUCOSE, FASTING 120 MG/DL (70-105); MAGNESIUM LEVEL 2.2 MG/DL (1.8-2.4); POTASSIUM SERUM 4.2 MEQ/L (3.5-5.1); SODIUM LEVEL 138 MEQ/L (136-145)
[2016-09-04] MEDS: FOLIC ACID 1 MG TAB PO SCH (09:12)
[2016-09-04] MEDS: MULTIVITAMINS/MINERALS THERAP 1 TAB PO SCH (09:12)
[2016-09-04] MEDS: NICOTINE 14 MG/24 HR TRANSDERMAL TD SCH (09:13)
[2016-09-04] MEDS: SANTYL OINT 30GM TOP SCH (09:13)
[2016-09-04] MEDS: HEPARIN SOD (PORCINE) 5000 UNITS/ML VIAL SQ SCH ×2 (09:13→21:52)
[2016-09-04] MEDS: THIAMINE 100 MG TAB PO SCH (09:13)
[2016-09-04 14:00] VITALS: BP 114/57
--- NOTE | 2016-09-04 17:08 | IPNPDOC ---
Subjective Date Seen The patient was seen on 09/04/16. Subjective Chief Complaint/HPI The patient is a 56-year-old male admitted with a reason for visit of Altered Mental State,Neoplam Of Brain. Events since last encounter no acute events overnight, Denied cp/abd pain/n/v/diarrhea. comfortable Constitutional: Denies: Chills, Fever ENT: Denies: Head Aches, Ear Pain Pulmonary: Denies: Dyspnea, Cough Cardiovascular: Denies: Chest Pain, Palpitations, Orthopnea Gastrointestinal: Denies: Nausea, Vomiting, Abdominal Pain, Diarrhea, Constipation Objective Physical Examination General Exam: Positive: Alert, No Acute Distress Eye Exam: Positive: PERRLA, Conjunctiva & lids normal, EOMI, Negative: Sclera icteric ENT Exam: Positive: Atraumatic, Mucous membr. moist/pink Neck Exam: Positive: Supple, Negative: JVD, thyromegaly Chest Exam: Positive: Clear to auscultation, Normal air movement Heart Exam: Positive: Rate Normal, Regular Rhythm, Normal S1, Normal S2, Negative: Gallops, Murmurs, Rubs Telemetry: Positive: No significant arrhythmia Abdomen Exam: Positive: Normal bowel sounds, Soft, Negative: Tenderness, Hepatospenomegaly Extremity Exam: Positive: Normal pulses, Negative: Clubbing, Cyanosis, Edema Skin Exam: Positive: Nl turgor and temperature, Negative: Breakdown, Lesion Neuro Exam: Positive: Normal Speech, Strength at 5/5 X4 ext, Normal Tone, Sensation Intact, Cranial Nerves 3-12 NL Psych Exam: Positive: Oriented x 3, Other (poor memory, ) Assessment /Plan Assessment 56-year-old man h/o etoh abuse, smoking, with 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 The vasogenic edema and mass effect. Neurosurgery was consulted. Patient was started on IV Decadron, s/p resection , POD 8, repeat CTs appreciated. f/u Neurosurg rec Okay to start DVT ppx heparin sq as per Dr Flores Path showed Poorly differentiated non-small cell likely lung cancer with mets to brain patient is suppose to f/u outpatient with Clayton Borrego, and Mark. also has been evicted from home and has no place to live right now. severe memory issue and personality issue, not safe dc, cancer navigtor consulted, case management consulted d/w with sister Twila, and brother Nicko patient has distanced himself with alot of the family, unfortunately, patient would not be able to live with a family, neither would be family able to coordinate care and management patient' s appointment. given patient's memory problem and poor compliance, safe discharge with reasonable followup by patient is questionable. Psych consulted, and followup, DW Dr Steve, PFS consulted. patient lack capacity, PFS involved, d/w Dr Arnold to find reasonable alternatives, Family is aware that the active personality and psychiatric issue could delay patient' s care for cancer (2) Tobacco abuse Problem Text: Continue with nicotine patch (3) Alcohol withdrawal Problem Text: no evidence of DT, MVI, folic acid, thiamine counseling (4) Lung cancer Problem Text: Follow-up oncology Dr Tadeo, thoracic surgery Dr Arnold refer to above Dr Matute d/w Dr babs LEAL, special approval granted for PET scan scheduled for Tuesday 1:30 PFT spirometry ordered I- logic Lung CT (5) Poor compliance Problem Text: psych consulted, counseling provider memory issue 2/2 to chronic ETOH abuse, (6) Unstageable pressure sore Problem Text: collagenase, Dr Hinojosa consulted for possible debridement. PT wound care (7) Dementia Problem Text: associated with ETOH Plan/VTE VTE Prophylaxis Ordered?: Yes (heparin SQ given active cancer) Plan IVF: Initiate Diet: Continue Current Activity: Continue Current Anticipated Discharge: Home Disposition Pending Pet scan, further cancer treatment VS, I&O, 24H, Fishbone Vital Signs/I&O Vital Signs Date Time Temp Pulse Resp B/P (MAP) Pulse Ox O2 Delivery O2 Flow Rate FiO2 09/04/16 14:00 97.8 97 18 114/57 (76) 91 Room Air I&O- Last 24 Hours up to 6 AM 09/04/16 06:00 Intake Total 2640 ml Output Total 1925 ml Balance 715 ml Laboratory Data 24H LABS Laboratory Tests 2 09/04/16 05:25: Anion Gap 5L, Glomerular Filtration Rate > 60.0, Blood Urea Nitrogen 16, Creatinine 0.66L, Sodium Level 138, Potassium Level 4.2, Chloride Level 104, Carbon Dioxide Level 29, Calcium Level 8.4L, Magnesium Level 2.2 CBC/BMP Laboratory Tests 09/04/16 05:25 Red Blood Count 3.68 L, Mean Corpuscular Volume 98.1 H, Mean Corpuscular Hemoglobin 33.8 H, Mean Corpuscular Hemoglobin Concent 34.4, Red Cell Distribution Width 15.2 H, Calcium Level 8.4 L Microbiology Microbiology 08/26/16 Fungal Smear - Final, Resulted 08/26/16 Fungal Culture, Resulted Pending 08/26/16 Gram Stain - Final, Complete 08/26/16 Wound Culture - Final, Complete Enterococcus Faecalis 08/26/16 Anaerobic Culture - Final, Complete NENITA KENDRICK MD Sep 04, 2016 17:08
[2016-09-04] MEDS: ACETAMINOPHEN 500 MG TAB PO PRN (18:42)
[2016-09-04 22:00] VITALS: BP 133/67
[2016-09-05 06:00] VITALS: BP 132/64
[2016-09-05 06:19] LABS: MEAN CORPUSCULAR HEMOGLOBIN 33.2 pg (27.0-33.0); MEAN CORPUSCULAR HGB CONC 33.3 g/dl (32.0-36.5); MEAN CORPUSCULAR VOLUME 99.7 fl (80.0-96.0); RED CELL DISTRIBUTION WIDTH 15.1 % (11.5-14.5); WHITE BLOOD COUNT 15.8 K/mm3 (4.0-10.0)
[2016-09-05 07:09] LABS: ANION GAP 7 MEQ/L (8-16); BLOOD UREA NITROGEN 14 MG/DL (7-18); CALCIUM LEVEL 8.2 MG/DL (8.5-10.1); CARBON DIOXIDE LEVEL 27 MEQ/L (21-32); CHLORIDE LEVEL 106 MEQ/L (98-107); CREATININE FOR GFR 0.57 MG/DL (0.70-1.30); GLOMERULAR FILTRATION RATE > 60.0 (>56); GLUCOSE, FASTING 94 MG/DL (70-105); MAGNESIUM LEVEL 2.3 MG/DL (1.8-2.4); POTASSIUM SERUM 4.2 MEQ/L (3.5-5.1); SODIUM LEVEL 140 MEQ/L (136-145)
--- NOTE | 2016-09-05 08:50 | BSSPIR ---
DATE OF PROCEDURE: Spirometry shows a normal forced vital capacity. The FEV1 is diminished. Ratio is below the lower limits of normal and the flow volume curve is prolonged. IMPRESSION: Severe airflow obstruction.
[2016-09-05] MEDS: NICOTINE 14 MG/24 HR TRANSDERMAL TD SCH (09:24)
[2016-09-05] MEDS: MULTIVITAMINS/MINERALS THERAP 1 TAB PO SCH (09:24)
[2016-09-05] MEDS: THIAMINE 100 MG TAB PO SCH (09:24)
[2016-09-05] MEDS: FOLIC ACID 1 MG TAB PO SCH (09:24)
[2016-09-05] MEDS: HEPARIN SOD (PORCINE) 5000 UNITS/ML VIAL SQ SCH ×2 (09:25→20:55)
[2016-09-05] MEDS: SANTYL OINT 30GM TOP SCH (09:25)
--- NOTE | 2016-09-05 13:45 | IPNPDOC ---
Subjective Date Seen The patient was seen on 09/05/16. Subjective Chief Complaint/HPI The patient is a 56-year-old male admitted with a reason for visit of Altered Mental State,Neoplam Of Brain. Events since last encounter no acute events overnight. Denied cp/abd pain, sob, n/v. More coorperative. Constitutional: Denies: Chills, Fever ENT: Denies: Head Aches Skin: Denies: Rash, Lesions Pulmonary: Denies: Dyspnea, Cough Cardiovascular: Denies: Chest Pain, Palpitations, Orthopnea Gastrointestinal: Denies: Nausea, Vomiting, Abdominal Pain, Diarrhea, Constipation Objective Physical Examination General Exam: Positive: Alert, No Acute Distress Eye Exam: Positive: PERRLA, Conjunctiva & lids normal, EOMI, Negative: Sclera icteric ENT Exam: Positive: Atraumatic, Mucous membr. moist/pink Neck Exam: Positive: Supple, Negative: JVD, thyromegaly Chest Exam: Positive: Clear to auscultation, Normal air movement Heart Exam: Positive: Rate Normal, Regular Rhythm, Normal S1, Normal S2, Negative: Gallops, Murmurs, Rubs Telemetry: Positive: No significant arrhythmia Abdomen Exam: Positive: Normal bowel sounds, Soft, Negative: Tenderness, Hepatospenomegaly Extremity Exam: Positive: Normal pulses, Negative: Clubbing, Cyanosis, Edema Skin Exam: Positive: Nl turgor and temperature, Negative: Breakdown, Lesion Neuro Exam: Positive: Normal Speech, Strength at 5/5 X4 ext, Normal Tone, Sensation Intact, Cranial Nerves 3-12 NL Psych Exam: Positive: Oriented x 3, Other (poor memory, ) Assessment /Plan Assessment 56-year-old man h/o etoh abuse, smoking, with 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 The vasogenic edema and mass effect. Neurosurgery was consulted. Patient was started on IV Decadron, s/p resection , POD 8, repeat CTs appreciated. f/u Neurosurg rec Okay to start DVT ppx heparin sq as per Dr Flores Path showed Poorly differentiated non-small cell likely lung cancer with mets to brain patient is suppose to f/u outpatient with Dr. Tadeo, Clayton, and Mark. also has been evicted from home and has no place to live right now. severe memory issue and personality issue, not safe dc, cancer navigtor consulted, case management consulted d/w with sister Twila, and brother Nicko patient has distanced himself with alot of the family, unfortunately, patient would not be able to live with a family, neither would be family able to coordinate care and management patient' s appointment. given patient's memory problem and poor compliance, safe discharge with reasonable followup by patient is questionable. Psych consulted, and followup, DW Dr Steve, PFS consulted. patient lack capacity, PFS involved, d/w Dr Arnold to find reasonable alternatives, Family is aware that the active personality and psychiatric issue could delay patient' s care for cancer (2) Tobacco abuse Problem Text: Continue with nicotine patch (3) Alcohol withdrawal Problem Text: no evidence of DT, MVI, folic acid, thiamine counseling (4) Lung cancer Problem Text: Follow-up oncology Dr Tadeo, thoracic surgery Dr Arnold refer to above Dr Matute d/w Dr babs LEAL, special approval granted for PET scan scheduled for Tuesday 1:30 PFT spirometry ordered I- logic Lung CT (5) Poor compliance Problem Text: psych consulted, counseling provider memory issue 2/2 to chronic ETOH abuse, (6) Unstageable pressure sore Problem Text: collagenase, Dr Hinojosa consulted for possible debridement. PT wound care (7) Dementia Problem Text: associated with ETOH Plan/VTE VTE Prophylaxis Ordered?: Yes (heparin SQ given active cancer) Plan IVF: Initiate Diet: Continue Current Activity: Continue Current Anticipated Discharge: Home Disposition pending PFS, and PET for cancer staging VS, I&O, 24H, Fishbone Vital Signs/I&O Vital Signs Date Time Temp Pulse Resp B/P (MAP) Pulse Ox O2 Delivery O2 Flow Rate FiO2 09/05/16 06:00 97.8 67 17 132/64 (86) 96 Room Air I&O- Last 24 Hours up to 6 AM 09/05/16 06:00 Intake Total 3140 ml Output Total 1600 ml Balance 1540 ml Laboratory Data 24H LABS Laboratory Tests 2 09/05/16 05:21: Anion Gap 7L, Glomerular Filtration Rate > 60.0, Blood Urea Nitrogen 14, Creatinine 0.57L, Sodium Level 140, Potassium Level 4.2, Chloride Level 106, Carbon Dioxide Level 27, Calcium Level 8.2L, Magnesium Level 2.3 CBC/BMP Laboratory Tests 09/05/16 05:21 Red Blood Count 3.69 L, Mean Corpuscular Volume 99.7 H, Mean Corpuscular Hemoglobin 33.2 H, Mean Corpuscular Hemoglobin Concent 33.3, Red Cell Distribution Width 15.1 H, Calcium Level 8.2 L Microbiology Microbiology 08/26/16 Fungal Smear - Final, Resulted 08/26/16 Fungal Culture, Resulted Pending 08/26/16 Gram Stain - Final, Complete 08/26/16 Wound Culture - Final, Complete Enterococcus Faecalis 08/26/16 Anaerobic Culture - Final, Complete NENITA KENDRICK MD Sep 05, 2016 13:45
[2016-09-05 14:00] VITALS: BP 127/77
[2016-09-05 22:00] VITALS: BP 132/74
[2016-09-06 05:50] LABS: MEAN CORPUSCULAR HEMOGLOBIN 33.2 pg (27.0-33.0); MEAN CORPUSCULAR HGB CONC 32.9 g/dl (32.0-36.5); MEAN CORPUSCULAR VOLUME 100.9 fl (80.0-96.0); RED CELL DISTRIBUTION WIDTH 15.8 % (11.5-14.5); WHITE BLOOD COUNT 14.1 K/mm3 (4.0-10.0)
[2016-09-06 06:00] VITALS: BP 140/75
[2016-09-06 06:03] LABS: ANION GAP 9 MEQ/L (8-16); BLOOD UREA NITROGEN 14 MG/DL (7-18); CALCIUM LEVEL 8.1 MG/DL (8.5-10.1); CARBON DIOXIDE LEVEL 24 MEQ/L (21-32); CHLORIDE LEVEL 105 MEQ/L (98-107); CREATININE FOR GFR 0.62 MG/DL (0.70-1.30); GLOMERULAR FILTRATION RATE > 60.0 (>56); GLUCOSE, FASTING 146 MG/DL (70-105); MAGNESIUM LEVEL 2.2 MG/DL (1.8-2.4); POTASSIUM SERUM 3.7 MEQ/L (3.5-5.1); SODIUM LEVEL 138 MEQ/L (136-145)
[2016-09-06] MEDS: FOLIC ACID 1 MG TAB PO SCH (08:30)
[2016-09-06] MEDS: THIAMINE 100 MG TAB PO SCH (08:30)
[2016-09-06] MEDS: MULTIVITAMINS/MINERALS THERAP 1 TAB PO SCH (08:30)
[2016-09-06] MEDS: HEPARIN SOD (PORCINE) 5000 UNITS/ML VIAL SQ SCH ×2 (08:31→20:45)
[2016-09-06] MEDS: NICOTINE 14 MG/24 HR TRANSDERMAL TD SCH (08:31)
[2016-09-06] MEDS: SANTYL OINT 30GM TOP SCH (08:32)
[2016-09-06 14:00] VITALS: BP 132/67
--- NOTE | 2016-09-06 18:58 | IPNPDOC ---
Subjective Date Seen The patient was seen on 09/06/16. Subjective Chief Complaint/HPI The patient is a 56-year-old male admitted with a reason for visit of Altered Mental State,Neoplam Of Brain. Events since last encounter No acute events overnight, denied cp/abd pain/simmons/f/c/n/v. comfortable Constitutional: Denies: Chills, Fever ENT: Denies: Head Aches, Ear Pain Skin: Denies: Rash, Lesions Pulmonary: Denies: Dyspnea, Cough Cardiovascular: Denies: Chest Pain, Palpitations, Orthopnea Gastrointestinal: Denies: Nausea, Vomiting, Abdominal Pain, Diarrhea, Constipation Objective Physical Examination General Exam: Positive: Alert, No Acute Distress Eye Exam: Positive: PERRLA, Conjunctiva & lids normal, EOMI, Negative: Sclera icteric ENT Exam: Positive: Atraumatic, Mucous membr. moist/pink Neck Exam: Positive: Supple, Negative: JVD, thyromegaly Chest Exam: Positive: Clear to auscultation, Normal air movement Heart Exam: Positive: Rate Normal, Regular Rhythm, Normal S1, Normal S2, Negative: Gallops, Murmurs, Rubs Telemetry: Positive: No significant arrhythmia Abdomen Exam: Positive: Normal bowel sounds, Soft, Negative: Tenderness, Hepatospenomegaly Extremity Exam: Positive: Normal pulses, Negative: Clubbing, Cyanosis, Edema Skin Exam: Positive: Nl turgor and temperature, Negative: Breakdown, Lesion Neuro Exam: Positive: Normal Speech, Strength at 5/5 X4 ext, Normal Tone, Sensation Intact, Cranial Nerves 3-12 NL Psych Exam: Positive: Oriented x 3, Other (poor memory, ) Assessment /Plan Assessment 56-year-old man h/o etoh abuse, smoking, with likely 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 The vasogenic edema and mass effect. Neurosurgery was consulted. Patient was started on IV Decadron, s/p resection , POD 8, repeat CTs appreciated. f/u Neurosurg rec Okay to start DVT ppx heparin sq as per Dr Flores Path showed Poorly differentiated non-small cell likely lung cancer with mets to brain patient is suppose to f/u outpatient with Dr. Tadeo, Clayton, and Mark. also has been evicted from home and has no place to live right now. severe memory issue and personality issue, not safe dc, cancer navigtor consulted, case management consulted d/w with sister Twila, and brother Nicko patient has distanced himself with alot of the family, unfortunately, patient would not be able to live with a family, neither would be family able to coordinate care and management patient' s appointment. given patient's memory problem and poor compliance, safe discharge with reasonable followup by patient is questionable. Psych consulted, and followup, DW Dr Steve, PFS consulted. patient lack capacity, PFS involved, d/w Dr Arnold to find reasonable alternatives, Family is aware that the active personality and psychiatric issue could delay patient' s care for cancer (3) Tobacco abuse Problem Text: Continue with nicotine patch (4) Alcohol withdrawal Problem Text: no evidence of DT, MVI, folic acid, thiamine counseling (5) Poor compliance Problem Text: psych consulted, counseling provider memory issue 2/2 to chronic ETOH abuse, (6) Unstageable pressure sore Problem Text: collagenase, Dr Hinojosa consulted for possible debridement. PT wound care (7) Dementia Problem Text: associated with ETOH Plan/VTE VTE Prophylaxis Ordered?: Yes (heparin SQ given active cancer) Plan IVF: Initiate Diet: Continue Current Activity: Continue Current Anticipated Discharge: Home Disposition lack capacity on last psych eval, PET scan, surgery vs Chemo/radiation pending PET scan, PFS VS, I&O, 24H, Fishbone Vital Signs/I&O Vital Signs Date Time Temp Pulse Resp B/P (MAP) Pulse Ox O2 Delivery O2 Flow Rate FiO2 09/06/16 14:00 99.1 94 17 132/67 (88) 96 Room Air I&O- Last 24 Hours up to 6 AM 09/06/16 06:00 Intake Total 3060 ml Output Total 1375 ml Balance 1685 ml Laboratory Data 24H LABS Laboratory Tests 2 09/06/16 05:03: Anion Gap 9, Glomerular Filtration Rate > 60.0, Blood Urea Nitrogen 14, Creatinine 0.62L, Sodium Level 138, Potassium Level 3.7, Chloride Level 105, Carbon Dioxide Level 24, Calcium Level 8.1L, Magnesium Level 2.2 CBC/BMP Laboratory Tests 09/06/16 05:03 Red Blood Count 3.66 L, Mean Corpuscular Volume 100.9 H, Mean Corpuscular Hemoglobin 33.2 H, Mean Corpuscular Hemoglobin Concent 32.9, Red Cell Distribution Width 15.8 H, Calcium Level 8.1 L NENITA KENDRICK MD Sep 06, 2016 18:58
--- NOTE | 2016-09-06 19:24 | IPNPDOC ---
Date Seen The patient was seen on 09/06/16. Progress Note NEUROSURGERY Admission day #: 14 (08/23/16) Post-op Day #: 11 Pain control: Tylenol 500 mg PO q 4 hrs PRN, morphine 2 mg IV q 4 hrs PRN. Surgical procedure: 08/26/16. Bilateral sub occipital craniectomy with excision of large mass, frozen section report is undifferentiated carcinoma, probably from lung. Over 24 hrs: Per nursing- he stated year was 1996. He as been doing well otherwise. His mood has been stable. SUBJECTIVE Mr Sánchez is a pleasant 56-year-old male with history of alcohol dependency who had presented to the emergency department with a chief complaint of altered mental status. CT of the head revealed a right cerebellar mass with vasogenic edema. He was admitted on 08/23/16. Today, he states he has a mild headache that started a little while ago today. Denies any other pain. He was been walking to the bathroom without difficulty. He denies fever, chills, stiff neck, vision changes, or issues with his gait. OBJECTIVE Clinical status: AVSS Neurological status: Alert and orientated to person, place, and birthday. States year is 1975. Recalls he had brain surgery. GCS= [id number]= 15. Speech is fluent. Wound/incision: Incision appears to be healing well. No increased drainage, erythema, or increased pain at the site. Adhesive gauze over the incision was removed today. Drainage: None. reservation agent= intact. Motor: R=L=5/5=UE=LE. No pronator drift. Sensory: Intact to light touch in all 4 extremities, R=L=UE=LE. Gait= ambulating without difficulty. LABS: WBC= 14.1, improved from yesterday 15.8. HGB= 12.2 Na+= 138, stable K+= 3.7, stable MICRO/PATH: 08/26/16. wound culture: pos E. Flavia 08/26/16. Sample: AB: Poorly differentiated metastatic non-small cell carcinoma. Sample: C: Brain tumor, excision: Metastatic poorly differentiated non- small cell carcinoma with extensive areas of necrosis in cerebellum. ASSESSMENT Patient stable PLAN 1. Fossa mass lesion: Most likely malignant. Recommend radiotherapy. Lung OR by thoracic surgeon. 2. Wound care: Per Dr Arnold and Dr Stillerman. 3. Pain control: Satisfactory. 4. DVT prophylaxis: heparin 5,000 units SQ BID 5. Constipation prophylaxis: colace PRN 6. Diet: as tolerated. 7. Activity: as tolerated. 8. D/C plan: per social work nurse. 9. Hospitalist involved with patient. No neurosurgical recommendations at this time. He is stable. Thank you for all providers for your much appreciated help regarding care of Mr Sánchez. Dr Tish Morse, RPA-C VS, I&O, 24H, Fishbone Vital Signs/I&O Vital Signs Date Time Temp Pulse Resp B/P (MAP) Pulse Ox O2 Delivery O2 Flow Rate FiO2 09/06/16 14:00 99.1 94 17 132/67 (88) 96 Room Air I&O- Last 24 Hours up to 6 AM 09/06/16 06:00 Intake Total 3060 ml Output Total 1375 ml Balance 1685 ml Laboratory Data 24H LABS Laboratory Tests 2 09/06/16 05:03: Anion Gap 9, Glomerular Filtration Rate > 60.0, Blood Urea Nitrogen 14, Creatinine 0.62L, Sodium Level 138, Potassium Level 3.7, Chloride Level 105, Carbon Dioxide Level 24, Calcium Level 8.1L, Magnesium Level 2.2 CBC/BMP Laboratory Tests 09/06/16 05:03 Red Blood Count 3.66 L, Mean Corpuscular Volume 100.9 H, Mean Corpuscular Hemoglobin 33.2 H, Mean Corpuscular Hemoglobin Concent 32.9, Red Cell Distribution Width 15.8 H, Calcium Level 8.1 L LIANET MORSE PA-C Sep 06, 2016 19:24
[2016-09-06] MEDS: ACETAMINOPHEN 500 MG TAB PO PRN (20:44)
[2016-09-06 22:00] VITALS: BP 129/69
[2016-09-07 06:00] VITALS: BP 131/71
[2016-09-07 07:12] LABS: MEAN CORPUSCULAR HEMOGLOBIN 33.2 pg (27.0-33.0); MEAN CORPUSCULAR HGB CONC 33.1 g/dl (32.0-36.5); MEAN CORPUSCULAR VOLUME 100.2 fl (80.0-96.0); RED CELL DISTRIBUTION WIDTH 15.9 % (11.5-14.5); WHITE BLOOD COUNT 13.6 K/mm3 (4.0-10.0)
[2016-09-07 07:23] LABS: ANION GAP 8 MEQ/L (8-16); BLOOD UREA NITROGEN 13 MG/DL (7-18); CALCIUM LEVEL 8.4 MG/DL (8.5-10.1); CARBON DIOXIDE LEVEL 25 MEQ/L (21-32); CHLORIDE LEVEL 106 MEQ/L (98-107); CREATININE FOR GFR 0.64 MG/DL (0.70-1.30); GLOMERULAR FILTRATION RATE > 60.0 (>56); GLUCOSE, FASTING 130 MG/DL (70-105); MAGNESIUM LEVEL 2.2 MG/DL (1.8-2.4); POTASSIUM SERUM 3.9 MEQ/L (3.5-5.1); SODIUM LEVEL 139 MEQ/L (136-145)
[2016-09-07] MEDS: FOLIC ACID 1 MG TAB PO SCH (08:21)
[2016-09-07] MEDS: NICOTINE 14 MG/24 HR TRANSDERMAL TD SCH (08:21)
[2016-09-07] MEDS: MULTIVITAMINS/MINERALS THERAP 1 TAB PO SCH (08:21)
[2016-09-07] MEDS: HEPARIN SOD (PORCINE) 5000 UNITS/ML VIAL SQ SCH ×2 (08:21→20:06)
[2016-09-07] MEDS: THIAMINE 100 MG TAB PO SCH (08:21)
[2016-09-07] MEDS: SANTYL OINT 30GM TOP SCH (08:22)
--- NOTE | 2016-09-07 08:47 | CR ---
DATE OF CONSULTATION: 09/03/2016 The patient is seen at the request of Dr. Magdaleno and Dr. Domingo for more extensive inpatient consult for possible nonsmall cell lung cancer. HISTORY OF PRESENT ILLNESS: The patient is a 56-year-old white male who presented to the emergency room with mental status changes not at all well characterized on the initial history and physical. 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 He was also noted to have a right upper lobe spiculated lesion on his initial CT angiogram. He was then taken to the operating room where he underwent removal of the cerebellar tumor by Dr. Flores. His postoperative course has been punctuated with elements of confusion and combative behavior. He has been judged by psychiatry to be incompetent in making medical decisions, although I do not actually see that in the report and it has been related to me by the hospitalist service. Upon my interviewing him this morning, he is lucid and oriented to time, place and person. He is quite cooperative and is able to give me a fairly extensive past medical history, which I am going to assume for the present is accurate. The patient does not complain of chest pain, nor does he complain of cough or sputum production. He is a smoker of at least a pack to 1-1/2 packs per day that he rolls on his own. He has had a 20-30 pound weight loss over the past 6 months, which is unexplained. There has been no shortness of breath and certainly no orthopnea or paroxysmal nocturnal dyspnea. He denies prior fevers, chills or sweats. He has been in and out of assisted secondary to his alcohol abuse having served 2 years in a state assisted and numerous years in county prisons. He states that his TB tests have all been negative and to his knowledge, he does not have hepatitis C. He has no difficulty swallowing and there is dysphagia. He does not cough when he eats. He is able to ambulate. I have been told that his short-term memory is very poor and that what he hears today, he will not remember tomorrow. PAST MEDICAL ILLNESSES: Alcoholism. Tobacco abuse. He has listed in prior emergency room reports has having hypertension, degenerative disc disease and rheumatoid arthritis. PAST SURGICAL HISTORY: A report of prior leg surgery. ALLERGIES: None. MEDICATIONS AT HOME: None. TRAVEL HISTORY: None to the [facility] or [facility] or foreign travel. EXPOSURES: No dogs, cats or birds at home. Tuberculosis exposure as discussed above. Skin test has been negative. HABITS: Smokes one to two packs a day and drinks a case of beer a day. REVIEW OF SYSTEMS: Constitutional: See history of present illness (HPI). He has a 30-50 pound weight loss over the past 6 months unexplained. Eyes: Without diplopia. Without prior jaundice. Without amaurosis fugax. Nose: Has occasional epistaxis. Mouth: Multiple missing teeth. He does not wear dentures. Respiratory: See HPI. Cardiac: See HPI. No prior history of myocardial infarctions. No intermittent claudication. There is no peripheral edema. No orthopnea or paroxysmal nocturnal dyspnea. GI: Without nausea, vomiting, diarrhea, constipation. No hematochezia or dysphagia. No hematemesis. : Without hematuria, dysuria or prior renal stones. Endocrine: Without diabetes. Without thyroid disease. Neurologic: See HPI. He is able to ambulate. Denies paresthesias or paralysis. Lymphatics: He has not noticed any lumps or bumps in his neck, axilla or groins. Hematologic: Without prolonged bleeding times. Psychiatric: Has been noted to be combative with short term memory loss while in the hospital here. In the most recent progress note, he is judged not to have the capacity to understand or make decisions about the treatment of his medical condition. He has agitation, impulsiveness and alcohol dependency. PHYSICAL EXAMINATION: Well developed, well nourished white male in no acute distress able to answer questions seemingly appropriately. VITAL SIGNS: Temperature is 97.3, heart rate is 75 with a regular rate and rhythm. Respiratory rate is 18 without the use of accessory muscles. He is 97% saturated in room air and his blood pressure is 139/77. Eyes: Pupils equal, round and reactive to light. Extraocular muscles intact. Sclerae nonicteric. Head is normocephalic with a neurosurgical scar. Nose without deformity. Mouth shows mucous membranes to be pink and moist. Lips and commissures are without lesions. There is no thrush. He has multiple missing teeth and decayed teeth. Neck is supple. There is no jugular venous distention. No subcutaneous emphysema. Trachea is midline. I hear no carotid bruits. He has 2+ carotid upstrokes and there is no lymphadenopathy or thyromegaly. Lungs show essentially normal vesicular sounds. I hear no wheezes or rales. He has occasional rhonchi all of which clear with coughing. Percussion note is full to the diaphragm. Cardiac exam is without murmurs, clicks, gallops or rubs. I cannot feel his point of maximum impulse (PMI). S1 and S2 are normal. Abdomen is soft and nontender. Bowel sounds are positive. There is no hepatomegaly. No CVA tenderness. Extremities show no pretibial edema with no calf tenderness. No differential swelling of the upper extremities. Skin is warm, dry and perfused without cyanosis or mottling including that of the nail beds and knees. Neurologic shows II-XII grossly intact along with gross motor and gross sensation intact. Gait is not tested. Psychiatric shows him to be awake, alert and oriented to time, place and person. INVESTIGATIONS: His white count is 14.6, with a hemoglobin and hematocrit of 12.3 and 35.5 with a platelet count of 162. There is no differential. Electrolytes are normal with BUN and creatinine of 15 and 0.66. A glucose of 98 , a calcium of 8.1 and a magnesium of 2.3. On admission, his drug screen was negative and his alcohol level was 0.004. His PT/INR is 14.0 and 1.07 on 08/26/2016. No blood gases have been determined. His chest CT done under angiographic protocol on 08/22/2016 on the date of admission, shows three lesions; two in the right upper lobe of which the apical segment is more prominent which measures 2 cm x 1 cm, and a posterior lesion also in the right upper lobe which measures approximately 1 x 1 cm. There is additional lobulated lesion in the fissure between the upper and lower left lobes. This is with smooth borders. Adrenal glands have a normal configuration. I do not see mediastinal lymphadenopathy. There may be a slight prominence of the subcarinal node. There is hilar lymphadenopathy on the right side at the take off of the right upper lobe bronchus. There is also some minimal hilar left-sided lymphadenopathy. His liver has a lumpy-bumpy appearance consistent with mild cirrhosis. There are no other liver lesions. 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 It is negative for TTF-1 Napsin A. PDL1 has been returned as less than 1%, which essentially equals no expression. EGFR, ROS and ALK1 are being sent out. FEV1 is 1.32 with an FVC of 3.37 with a FEV1/FVC ratio of 46% on bedside spirometry. This would leave him with a predicted post operative FEV1 of 1.00 liter. IMPRESSION: 1. Metastatic nonsmall cell carcinoma. 2. Three separate lung lesions; two in the right upper lobe, one in the fissure between the left upper and lower lobes. The two right upper lobe lesions look to be spiculated. 3. Alcoholism. 4. Maybe hypertension. 5. Tobacco abuse. 6. Mental incapacity to make medical decisions. PLAN AND DISCUSSION: At the end of the day, the brain lesion is probably going to be emanating from the lung but we do not have any proof positive of that and the markers are not helping us to localize the tumor. Nonetheless, there are no other tumors that are noted. My suspicion is that the left-sided mass is probably benign in that it is inter-fissural and it is lobulated. It does not look spiculated. On the other hand, the two right upper lobe lesions do look to be spiculated and represent carcinoma. He may or may not have subcarinal lymphadenopathy. There is also definite hilar lymphadenopathy. Assuming that the left side lesion is benign, his two separate lesions in the same lobe made this a T3 lesion. Given the best possible case scenario where there are no lymph nodes, that makes him a stage II B. However, given the fact he has hilar and mediastinal lymphadenopathy, the hilar lymphadenopathy changes him to a stage III A local disease. That will, therefore, make him inoperable. The brain lesion not withstanding. I think that we can reasonably assume that his brain lesion is coming from his lung. The only other piece of information that needs to be undertaken is the status of the lymph nodes. While we can make definitive diagnosis on the lung lesions by navigation and/or needle biopsy, he is going to require a PET/CT to determine the size of the lymph nodes. All-in-all, given his mental incapacity, even though he seems perfectly lucid today, I have serious doubts that even if he staged out to be II B that he would be operatively resectable. We would also undertake pulmonary function tests. I was given to believe he is PDL1 positive, however, the path reports says differently and therefore, he would not be a candidate for immunotherapy. We are going to repeat a CT scan under [employer] protocol and later on consider a navigational procedure. This still does not settle the question of his final staging as we do not know what the status of the lymph nodes were. Inpatient PET scanning is not available and I have been told that is secondary to the fact that the patient is radioactive after injection of Isotope. We certainly do bone scans here with technetium 99 whose half-life is 6.02 hours and whose maximum gamma energy and GENI is 104. The FDG half-life on the other hand is only 109 minutes but with a maximum gamma energy of 511 GENI. By the time it took the patient to come back from the PET scanner, at the [facility], the FDG would be nearly half spent. I am afraid that if we cannot assess the lymph nodes, either hilar or mediastinal in a noninvasive way, a mediastinoscopy would not be able to give us information on the hilar nodes. The small subcarinal collection of nodes would not be reachable by mediastinoscopy and I doubt if we could do it by BLANE. My real suspicion is that the PET scan is not available secondary to financial reasons. This would then relegate him to chemotherapy. Whether he can withstand chemotherapy and cooperate with such is yet another question. I will refer the case to Dr. Burciaga, the chief nursing executive to see of we can obtain a PET scan. SABRA
[2016-09-07 14:40] VITALS: BP 124/76
--- NOTE | 2016-09-07 15:02 | IPNPDOC ---
Text Note Date of Service The patient was seen on 09/07/16. NOTE Subjective: Pt feels well. Denies BENITO. No CP/SOB/Palpitations. No N/V/Abd pain. Objective: Vitals: (see below) General: No acute distress, laying comfortably in bed. HEENT: Moist mucous membranes. Post. occipital incision clean and dry. No erythema. Neck: No JVD or lymphadenopathy Cardiac: RRR, No murmurs Pulm: Clear to auscultation b/l. No wheezing, rhonchi Abd: NT/ND + BS Ext: No edema or cyanosis Neuro: Alert, Oriented to person and place. Strength 5/5 BUE and BLE. CN 2-12 intact. F to N intact Negative pronator drift. Negative Babinki. Sensation to fine touch intact. Labs (see below) Images: MRI Brain 08/22/16 IMPRESSION: 1. Right cerebellar mass lesion, thought to most likely be due to metastatic disease. 2. Regional mass effect with surrounding vasogenic edema. 3. Obstructive hydrocephalus. 4. Mild upward transtentorial herniation and right cerebellar tonsillar herniation. CT Abd/pelvis 08/22/16 IMPRESSION: 1. Evidence of circumferential wall thickening along the duodenum and jejunum compatible with enteritis. 2. Small fat containing umbilical hernia is seen. 3. Sigmoid diverticulosis. 4. 6 mm hypodensity at the hepatic dome which may represent small cyst vs hemangioma. CTA Chest 08/22/16 IMPRESSION: 1. No evidence for pulmonary embolism. 2. Severe scattered upper lobe predominant emphysema is seen. There is a spiculated nodule of speculated mass noted in the right lung apex measuring approximately 2.0 x 1.5 cm, highly suspicious for malignancy. Consider further evaluation with PET CT. 3. There is mild bilateral hilar lymphadenopathy noted. CT Chest 09/03/16 Impression:There are multiple lung nodules as discussed in detail body of the report. Most of these nodules has have increased in size. Additionally, the spiculated nodule in the apex of the right lung is considered suspicious. There is also increased in size. Therefore, follow-up PET scan might be considered for further evaluation of these nodules, particularly the spiculated nodule in the right apex. CT head 08/30/16 The craniotomy defect is unchanged. The degree of pneumocephaly in the postoperative bed has lessened as has the increased density in the postoperative bed consistent with blood. The fourth ventricle is unchanged in size and there is an unchanged shift of the cerebellum to the left. There is no evidence of acute intracranial hemorrhage. Overall the ventricles are unchanged in size. There is no change in appearance of the skull. IMPRESSION:Slight improvement as described above. Assessment/Plan 1. Metastatic non-small cell cancer, positive biopsy from cerebellar mass. CT of the chest (see below) appreciate Dr. Arnold put. Patient scheduled for a PET scan today. Dr. Tadeo consulted as well. 2. Cerebellar mass with vasogenic edema - s/p Bilateral sub occipital craniectomy with excision of large mass 08/27/16. Pathology with non-small cell carcinoma, likely mets from the lung. Management per neurosurg. Received Decadron by neurosurgery. 3. Baseline memory impairment, questionable whether secondary to chronic alcohol abuse. Patient had distance himself from the family. Patient lacks capacity per psychiatry. 4. Tobacco abuse- counseled on cessation. On nicotine patch. 5. History of alcohol abuse- on MVI/folic acid/thiamine. Counseling cessation. 6. Pressure sore- Dr. Gilliam consulted for possible debridement. Wound care. DVT prophy: Heparin subcutaneous Prognosis guarded. VS,Fishbone, I+O VS, Fishbone, I+O Laboratory Tests 09/07/16 06:44 Red Blood Count 3.66 L, Mean Corpuscular Volume 100.2 H, Mean Corpuscular Hemoglobin 33.2 H, Mean Corpuscular Hemoglobin Concent 33.1, Red Cell Distribution Width 15.9 H, Calcium Level 8.4 L Vital Signs Date Time Temp Pulse Resp B/P (MAP) Pulse Ox O2 Delivery O2 Flow Rate FiO2 09/07/16 06:00 98.7 71 20 131/71 (91) 95 09/06/16 22:00 Room Air I&O- Last 24 Hours up to 6 AM 09/07/16 06:00 Intake Total 3600 ml Output Total 1350 ml Balance 2250 ml HENRY LUKE MD Sep 07, 2016 15:02
--- NOTE | 2016-09-07 15:27 | IPNPDOC ---
Date Seen The patient was seen on 09/07/16. Progress Note NEUROSURGERY Admission day #: 15 (08/23/16) Post-op Day #: 12 Pain control: Tylenol 500 mg PO q 4 hrs PRN, morphine 2 mg IV q 4 hrs PRN. Surgical procedure: 08/26/16. Bilateral sub occipital craniectomy with excision of large mass, frozen section report is undifferentiated carcinoma, probably from lung. Over 24 hrs: He as been doing well. He has been anxious to go home. His mood has otherwise been stable. PT was in to assess him shortly after I left patients room. SUBJECTIVE Mr Sánchez is a pleasant 56-year-old male with history of alcohol dependency who had presented to the emergency department with a chief complaint of altered mental status. CT of the head revealed a right cerebellar mass with vasogenic edema. He was admitted on 08/23/16. Today, he states he is doing well with no concerns. He tells me he would like to go home. Denies any pain. He was been walking to the bathroom without difficulty. He denies fever, chills, stiff neck, vision changes, or issues with his gait. OBJECTIVE Clinical status: AVSS Neurological status: Alert and orientated to person and place. GCS= [id number]= 15. Speech is fluent. Wound/incision: Incision appears to be healing well. No increased drainage, erythema, or increased pain at the site. Drainage: None. curriculum development specialist= PERRL. Motor: R=L=5/5=UE=LE. No pronator drift. Sensory: Intact to light touch in all 4 extremities, R=L=UE=LE. Gait= ambulating without difficulty. LABS: WBC= 13.6, improved from yesterday 14.1. HGB= 12.2 Na+= 139, stable K+= 3.9, stable MICRO/PATH: 08/26/16. wound culture: pos E. Flavia 08/26/16. Sample: AB: Poorly differentiated metastatic non-small cell carcinoma. Sample: C: Brain tumor, excision: Metastatic poorly differentiated non- small cell carcinoma with extensive areas of necrosis in cerebellum. IMAGING: No new. ASSESSMENT Patient stable PLAN 1. Malignant fossa mass lesion and vasogenic edema: Improving. Will start to wean off decadron 2mg- 2mg PO daily for 2 days and then D/C. Recommend radiotherapy. Lung OR by thoracic surgeon. 2. Wound care: Appears to be healing well. 3. Pain control: Satisfactory. 4. DVT prophylaxis: heparin 5,000 units SQ BID 5. Constipation prophylaxis: colace PRN 6. Diet: as tolerated. 7. Activity: as tolerated. 8. D/C plan: per social studies teacher. 9. Hospitalist involved with patient. No neurosurgical recommendations at this time. He is stable. Thank you for all providers for your much appreciated help regarding care of Mr Sánchez. Dr Tish Mores, RPA-C VS, I&O, [facility] Signs/I&O Vital Signs Date Time Temp Pulse Resp B/P (MAP) Pulse Ox O2 Delivery O2 Flow Rate FiO2 09/07/16 06:00 98.7 71 20 131/71 (91) 95 09/06/16 22:00 Room Air I&O- Last 24 Hours up to 6 AM 09/07/16 06:00 Intake Total 3600 ml Output Total 1350 ml Balance 2250 ml Laboratory Data 24H LABS Laboratory Tests 2 09/07/16 06:44: Anion Gap 8, Glomerular Filtration Rate > 60.0, Blood Urea Nitrogen 13, Creatinine 0.64L, Sodium Level 139, Potassium Level 3.9, Chloride Level 106, Carbon Dioxide Level 25, Calcium Level 8.4L, Magnesium Level 2.2 CBC/BMP Laboratory Tests 09/07/16 06:44 Red Blood Count 3.66 L, Mean Corpuscular Volume 100.2 H, Mean Corpuscular Hemoglobin 33.2 H, Mean Corpuscular Hemoglobin Concent 33.1, Red Cell Distribution Width 15.9 H, Calcium Level 8.4 L LIANET MORSE PA-C Sep 07, 2016 15:27
[2016-09-07 22:00] VITALS: BP 129/74
[2016-09-08 06:00] VITALS: BP 132/83
[2016-09-08 06:04] LABS: MEAN CORPUSCULAR HEMOGLOBIN 33.3 pg (27.0-33.0); MEAN CORPUSCULAR HGB CONC 33.2 g/dl (32.0-36.5); MEAN CORPUSCULAR VOLUME 100.3 fl (80.0-96.0); RED CELL DISTRIBUTION WIDTH 16.1 % (11.5-14.5); WHITE BLOOD COUNT 15.3 K/mm3 (4.0-10.0)
[2016-09-08 06:13] LABS: ANION GAP 6 MEQ/L (8-16); BLOOD UREA NITROGEN 16 MG/DL (7-18); CALCIUM LEVEL 8.3 MG/DL (8.5-10.1); CARBON DIOXIDE LEVEL 26 MEQ/L (21-32); CHLORIDE LEVEL 107 MEQ/L (98-107); CREATININE FOR GFR 0.53 MG/DL (0.70-1.30); GLOMERULAR FILTRATION RATE > 60.0 (>56); GLUCOSE, FASTING 103 MG/DL (70-105); MAGNESIUM LEVEL 2.3 MG/DL (1.8-2.4); POTASSIUM SERUM 4.1 MEQ/L (3.5-5.1); SODIUM LEVEL 139 MEQ/L (136-145)
[2016-09-08] MEDS: SANTYL OINT 30GM TOP SCH (09:00)
--- NOTE | 2016-09-08 11:58 | IPNPDOC ---
Text Note Date of Service The patient was seen on 09/08/16. NOTE Subjective:No acute changes overnight. Had gone for PET scan today after being made NPO overnight. Objective: Vitals: (see below) General: No acute distress, laying comfortably in bed. HEENT: Moist mucous membranes. Post. occipital incision clean and dry. No erythema. Neck: No JVD or lymphadenopathy Cardiac: RRR, No murmurs Pulm: Clear to auscultation b/l. No wheezing, rhonchi Abd: NT/ND + BS Ext: No edema or cyanosis Neuro: Alert, Oriented to person and place. Strength 5/5 BUE and BLE. CN 2-12 intact. F to N intact Negative pronator drift. Negative Babinki. Sensation to fine touch intact. Labs (see below) Images: MRI Brain 08/22/16 IMPRESSION: 1. Right cerebellar mass lesion, thought to most likely be due to metastatic disease. 2. Regional mass effect with surrounding vasogenic edema. 3. Obstructive hydrocephalus. 4. Mild upward transtentorial herniation and right cerebellar tonsillar herniation. CT Abd/pelvis 08/22/16 IMPRESSION: 1. Evidence of circumferential wall thickening along the duodenum and jejunum compatible with enteritis. 2. Small fat containing umbilical hernia is seen. 3. Sigmoid diverticulosis. 4. 6 mm hypodensity at the hepatic dome which may represent small cyst vs hemangioma. CTA Chest 08/22/16 IMPRESSION: 1. No evidence for pulmonary embolism. 2. Severe scattered upper lobe predominant emphysema is seen. There is a spiculated nodule of speculated mass noted in the right lung apex measuring approximately 2.0 x 1.5 cm, highly suspicious for malignancy. Consider further evaluation with PET CT. 3. There is mild bilateral hilar lymphadenopathy noted. CT Chest 09/03/16 Impression:There are multiple lung nodules as discussed in detail body of the report. Most of these nodules has have increased in size. Additionally, the spiculated nodule in the apex of the right lung is considered suspicious. There is also increased in size. Therefore, follow-up PET scan might be considered for further evaluation of these nodules, particularly the spiculated nodule in the right apex. CT head 08/30/16 The craniotomy defect is unchanged. The degree of pneumocephaly in the postoperative bed has lessened as has the increased density in the postoperative bed consistent with blood. The fourth ventricle is unchanged in size and there is an unchanged shift of the cerebellum to the left. There is no evidence of acute intracranial hemorrhage. Overall the ventricles are unchanged in size. There is no change in appearance of the skull. IMPRESSION:Slight improvement as described above. Assessment/Plan 1. Metastatic non-small cell cancer, positive biopsy from cerebellar mass. CT of the chest (see below) appreciate Dr. Arnold's input. Patient scheduled for a PET scan today. Dr. Tadeo consulted as well. 2. Cerebellar mass with vasogenic edema - s/p Bilateral sub occipital craniectomy with excision of large mass 08/27/16. Pathology with non-small cell carcinoma, likely mets from the lung. Management per neurosurg. Received Decadron by neurosurgery. 3. Baseline memory impairment, questionable whether secondary to chronic alcohol abuse. Patient had distance himself from the family. Patient lacks capacity per psychiatry. 4. Tobacco abuse- counseled on cessation. On nicotine patch. 5. History of alcohol abuse- on MVI/folic acid/thiamine. Counseling cessation. 6. Pressure sore- Dr. Gilliam consulted for possible debridement. Wound care. DVT prophy: Heparin subcutaneous Prognosis guarded. VS,Fishbone, I+O VS, Fishbone, I+O Laboratory Tests 09/08/16 05:41 Red Blood Count 3.70 L, Mean Corpuscular Volume 100.3 H, Mean Corpuscular Hemoglobin 33.3 H, Mean Corpuscular Hemoglobin Concent 33.2, Red Cell Distribution Width 16.1 H, Calcium Level 8.3 L Vital Signs Date Time Temp Pulse Resp B/P (MAP) Pulse Ox O2 Delivery O2 Flow Rate FiO2 09/08/16 06:00 97.4 72 18 132/83 (99) 97 Room Air I&O- Last 24 Hours up to 6 AM 09/08/16 06:00 Intake Total 1920 ml Output Total 1025 ml Balance 895 ml HENRY LUKE MD Sep 08, 2016 11:58
[2016-09-08] MEDS: HEPARIN SOD (PORCINE) 5000 UNITS/ML VIAL SQ SCH ×2 (12:58→21:03)
[2016-09-08] MEDS: FOLIC ACID 1 MG TAB PO SCH (12:58)
[2016-09-08] MEDS: NICOTINE 14 MG/24 HR TRANSDERMAL TD SCH (12:58)
[2016-09-08] MEDS: THIAMINE 100 MG TAB PO SCH (12:58)
[2016-09-08] MEDS: MULTIVITAMINS/MINERALS THERAP 1 TAB PO SCH (12:58)
[2016-09-08 14:00] VITALS: BP 145/77
--- NOTE | 2016-09-08 17:48 | REP ---
Whole body PET CT scan: The studies performed for initial staging of poorly differentiated non-small cell lung carcinoma. Comparison studies are the CT of the chest dated 09/03/[address] of the abdomen and pelvis dated 08/22/2016. Whole body scan is performed from skull base to the upper thighs. Neck and supraclavicular areas: There is artifactual uptake in the submandibular salivary glands. There are no hypermetabolic foci. Chest: There is hypermetabolic uptake in the patient's known spiculated nodule in the upper lobe of the right lung measuring approximately 13 mm in greatest diameter. Standard uptake value is 3.3. The ground-glass nodule in the right upper lobe measuring 11 mm on the comparison CT demonstrates no radiolabeling with the standard uptake value measuring 1.0. The right middle lobe 10 mm spiculated nodule demonstrates no radiolabeling with a standard uptake value of 0.6. The right infrahilar 8 mm nodule demonstrates no radiolabeling with a standard uptake value of 1.8. The 11 ml left lower lobe lung nodule demonstrates no radiolabeling with a standard uptake value of 0.5. There are are no hypermetabolic foci in the mediastinum, eduard or axilla. Abdomen, pelvis and upper thighs: There is focal hypermetabolic pericolonic uptake of the proximal sigmoid colon with a standard uptake value of 5.7, compatible with diverticulitis versus neoplasm. Impression: There is hypermetabolic uptake in the patient's known right lung upper lobe spiculated nodule. The remainder of the lung nodules demonstrate no radiolabeling. There is focal pericolonic hypermetabolic uptake in the proximal sigmoid colon compatible with neoplasm versus diverticulitis. The study is performed with 10 mCi of F 18 FDG< Signed by James Buchanan MD 09/08/2016 05:40 P
--- NOTE | 2016-09-08 22:24 | IPNPDOC ---
Date Seen The patient was seen on 09/08/16. Progress Note NEUROSURGERY Admission day #: 16 (08/23/16) Post-op Day #: 13 Pain control: Tylenol 500 mg PO q 4 hrs PRN, morphine 2 mg IV q 4 hrs PRN. Surgical procedure: 08/26/16. Bilateral sub occipital craniectomy with excision of large mass, frozen section report is undifferentiated carcinoma, probably from lung. Over 24 hrs: He has been doing well. His mood has been stable. SUBJECTIVE Mr Sánchez is a pleasant 56-year-old male with history of alcohol dependency who had presented to the emergency department with a chief complaint of altered mental status. CT of the head revealed a right cerebellar mass with vasogenic edema. He was admitted on 08/23/16. Today, he states he is doing well with no concerns. Denies any pain. He was been walking to the bathroom without difficulty. He has been eating and drinking well. He denies fever, chills, headache, vision changes, stiff neck, vision changes, or issues with his gait. OBJECTIVE Clinical status: AVSS Neurological status: Alert and orientated to person and place. GCS= [id number]= 15. Speech is fluent. Wound/incision: Incision appears to be healing well. No increased drainage, erythema, or increased pain at the site. Drainage: None. microsoft infrastructure consultant= PERRL. Motor: R=L=5/5=UE=LE. No pronator drift. Sensory: Intact to light touch in all 4 extremities, R=L=UE=LE. Gait= ambulating without difficulty. LABS: WBC= 15.3 HGB= 12.3 Na+= 139 K+= 4.1 MICRO/PATH: 08/26/16. wound culture: pos E. Flavia 08/26/16. Sample: AB: Poorly differentiated metastatic non-small cell carcinoma. Sample: C: Brain tumor, excision: Metastatic poorly differentiated non- small cell carcinoma with extensive areas of necrosis in cerebellum. IMAGING: PET scan- result pending ASSESSMENT Patient stable PLAN 1. Malignant fossa mass lesion and vasogenic edema: Improving. Will start to wean off decadron 2mg- 2mg PO daily for 1 more day and then D/C. Recommend radiotherapy. Lung OR by thoracic surgeon. 2. Wound care: Appears to be healing well. 3. Pain control: Satisfactory. 4. DVT prophylaxis: heparin 5,000 units SQ BID 5. Constipation prophylaxis: colace PRN 6. Diet: as tolerated. 7. Activity: as tolerated. 8. D/C plan: per psychiatric social worker. PT states he is not safe to go home yet. 9. Hospitalist involved with patient. No neurosurgical recommendations at this time. He is stable. Thank you for all providers for your much appreciated help regarding care of Mr Sánchez. Dr Tish Morse, RPA-C VS, I&O, [facility], [facility] Vital Signs/I&O Vital Signs Date Time Temp Pulse Resp B/P (MAP) Pulse Ox O2 Delivery O2 Flow Rate FiO2 09/08/16 14:00 98.2 79 19 145/77 (99) 100 Room Air I&O- Last 24 Hours up to 6 AM 09/08/16 06:00 Intake Total 1920 ml Output Total 1025 ml Balance 895 ml Laboratory Data 24H LABS Laboratory Tests 2 09/08/16 05:41: Anion Gap 6L, Glomerular Filtration Rate > 60.0, Blood Urea Nitrogen 16, Creatinine 0.53L, Sodium Level 139, Potassium Level 4.1, Chloride Level 107, Carbon Dioxide Level 26, Calcium Level 8.3L, Magnesium Level 2.3 CBC/BMP Laboratory Tests 09/08/16 05:41 Red Blood Count 3.70 L, Mean Corpuscular Volume 100.3 H, Mean Corpuscular Hemoglobin 33.3 H, Mean Corpuscular Hemoglobin Concent 33.2, Red Cell Distribution Width 16.1 H, Calcium Level 8.3 L LIANET MORSE PA-C Sep 08, 2016 22:24
[2016-09-09 06:00] VITALS: BP 155/77
[2016-09-09 06:16] LABS: MEAN CORPUSCULAR HEMOGLOBIN 33.7 pg (27.0-33.0); MEAN CORPUSCULAR VOLUME 99.2 fl (80.0-96.0); RED CELL DISTRIBUTION WIDTH 16.3 % (11.5-14.5); WHITE BLOOD COUNT 14.3 K/mm3 (4.0-10.0)
[2016-09-09 06:36] LABS: ANION GAP 8 MEQ/L (8-16); BLOOD UREA NITROGEN 14 MG/DL (7-18); CALCIUM LEVEL 8.6 MG/DL (8.5-10.1); CARBON DIOXIDE LEVEL 25 MEQ/L (21-32); CHLORIDE LEVEL 105 MEQ/L (98-107); CREATININE FOR GFR 0.76 MG/DL (0.70-1.30); GLOMERULAR FILTRATION RATE > 60.0 (>56); GLUCOSE, FASTING 174 MG/DL (70-105); MAGNESIUM LEVEL 2.1 MG/DL (1.8-2.4); POTASSIUM SERUM 3.9 MEQ/L (3.5-5.1); SODIUM LEVEL 138 MEQ/L (136-145)
[2016-09-09] MEDS: HEPARIN SOD (PORCINE) 5000 UNITS/ML VIAL SQ SCH ×2 (09:16→20:25)
[2016-09-09] MEDS: FOLIC ACID 1 MG TAB PO SCH (09:16)
[2016-09-09] MEDS: THIAMINE 100 MG TAB PO SCH (09:16)
[2016-09-09] MEDS: MULTIVITAMINS/MINERALS THERAP 1 TAB PO SCH (09:16)
[2016-09-09] MEDS: SANTYL OINT 30GM TOP SCH (09:17)
[2016-09-09] MEDS: NICOTINE 14 MG/24 HR TRANSDERMAL TD SCH (09:17)
--- NOTE | 2016-09-09 13:40 | IPNPDOC ---
Text Note Date of Service The patient was seen on 09/09/16. NOTE Subjective: Pt feels well. Completed PET scan yesterday. No new neurologic symptoms. Objective: Vitals: (see below) General: No acute distress, laying comfortably in bed. HEENT: Moist mucous membranes. Post. occipital incision clean and dry. No erythema. Neck: No JVD or lymphadenopathy Cardiac: RRR, No murmurs Pulm: Clear to auscultation b/l. No wheezing, rhonchi Abd: NT/ND + BS Ext: No edema or cyanosis Neuro: Alert, Oriented to person and place. Strength 5/5 BUE and BLE. CN 2-12 intact. F to N intact Labs (see below) Images: MRI Brain 08/22/16 IMPRESSION: 1. Right cerebellar mass lesion, thought to most likely be due to metastatic disease. 2. Regional mass effect with surrounding vasogenic edema. 3. Obstructive hydrocephalus. 4. Mild upward transtentorial herniation and right cerebellar tonsillar herniation. CT Abd/pelvis 08/22/16 IMPRESSION: 1. Evidence of circumferential wall thickening along the duodenum and jejunum compatible with enteritis. 2. Small fat containing umbilical hernia is seen. 3. Sigmoid diverticulosis. 4. 6 mm hypodensity at the hepatic dome which may represent small cyst vs hemangioma. CTA Chest 08/22/16 IMPRESSION: 1. No evidence for pulmonary embolism. 2. Severe scattered upper lobe predominant emphysema is seen. There is a spiculated nodule of speculated mass noted in the right lung apex measuring approximately 2.0 x 1.5 cm, highly suspicious for malignancy. Consider further evaluation with PET CT. 3. There is mild bilateral hilar lymphadenopathy noted. CT Chest 09/03/16 Impression:There are multiple lung nodules as discussed in detail body of the report. Most of these nodules has have increased in size. Additionally, the spiculated nodule in the apex of the right lung is considered suspicious. There is also increased in size. Therefore, follow-up PET scan might be considered for further evaluation of these nodules, particularly the spiculated nodule in the right apex. CT head 08/30/16 The craniotomy defect is unchanged. The degree of pneumocephaly in the postoperative bed has lessened as has the increased density in the postoperative bed consistent with blood. The fourth ventricle is unchanged in size and there is an unchanged shift of the cerebellum to the left. There is no evidence of acute intracranial hemorrhage. Overall the ventricles are unchanged in size. There is no change in appearance of the skull. IMPRESSION:Slight improvement as described above. Assessment/Plan 1. Metastatic non-small cell cancer, positive biopsy from cerebellar mass. CT of the chest (see below) appreciate Dr. Arnold's input. Patient scheduled for a PET scan today. Dr. Tadeo consulted as well. Spoke with Dr Arnold who will present case at cancer board with possible surgery on next . 2. Cerebellar mass with vasogenic edema - s/p Bilateral sub occipital craniectomy with excision of large mass 08/27/16. Pathology with non-small cell carcinoma, likely mets from the lung. Management per neurosurg. Received Decadron by neurosurgery. 3. Baseline memory impairment, questionable whether secondary to chronic alcohol abuse. Patient had distance himself from the family. Patient lacks capacity per psychiatry. Mentation improving. Will re-consult psych for competency. 4. Tobacco abuse- counseled on cessation. On nicotine patch. 5. History of alcohol abuse- on MVI/folic acid/thiamine. Counseling cessation. 6. Pressure sore- Dr. Gilliam consulted for possible debridement. Wound care. DVT prophy: Heparin subcutaneous Prognosis guarded. VS,Fishbone, I+O VS, Fishbone, I+O Laboratory Tests 09/09/16 05:44 Red Blood Count 3.72 L, Mean Corpuscular Volume 99.2 H, Mean Corpuscular Hemoglobin 33.7 H, Mean Corpuscular Hemoglobin Concent 34.0, Red Cell Distribution Width 16.3 H, Calcium Level 8.6 Vital Signs Date Time Temp Pulse Resp B/P (MAP) Pulse Ox O2 Delivery O2 Flow Rate FiO2 09/09/16 06:00 96.9 71 20 155/77 (103) 97 Room Air I&O- Last 24 Hours up to 6 AM 09/09/16 06:00 Intake Total 1080 ml Output Total 2350 ml Balance -1270 ml HENRY LUKE MD Sep 09, 2016 13:40
[2016-09-09 14:00] VITALS: BP 125/70
--- NOTE | 2016-09-09 15:23 | MHIPNPDOC ---
[facility] Progress Note Progress Note DATE OF SERVICE: 09/09/16 HISTORY: Came to evaluate 56 year old male with history and diagnosis of metastatic non-small cell cancer, cerebellar mass with vasogenic edema, baseline memory impairment, questionable whether secondary to chronic alcohol abuse, tobacco abuse- counseled on cessation, history of alcohol abuse pressure sore. Patient has undergone surgery for mass excision and is having a good recovery but there's concerned regarding his memory impairment, because would certainly impair his ability to comply with treatment, appointments, self care. Upon evaluation, the patient was seen in his bedroom, laying in bed, with his eyes closed. This typewriter assembly and parts inspector started with the psychiatric interview but couldn't advance as desired due to patient being very uncooperative. The patient remained with his eyes closed and wouldn't respond to some of the questions. He said he knew he was at the Hospital because he had bran and lung cancer. This typewriter assembly and parts inspector asked him if he knew what procedures and what kind of treatment he had received for his brain cancer and he replied: "None". This typewriter assembly and parts inspector replied: You have not received treatment? He said: "No, haven't received any treatment". this typewriter assembly and parts inspector asked him if he had had any surgery, he said, "No, I had no surgeries". This typewriter assembly and parts inspector replied that I had read in his noters and spoken to his Doctors and it seemed he had brain surgery. He remained silent. When this typewriter assembly and parts inspector started asking him more questions and elicit information about his memory and alcohol abuse, he remained silent and eventually he became agitated and demanded I should leave his room. ASSESSMENT:Patient is having severe problems with his memory. He didn't remember he had brain surgery, therefore, if he can retain recent memories, he lacks capacity for making decisions, for taking care of himself. If he gets discharged and has to comply with appointments or medications, he won't be able to do it. TIME SPENT: 25 minutes. Vital Signs Vital Signs Date Time Temp Pulse Resp B/P (MAP) Pulse Ox O2 Delivery O2 Flow Rate FiO2 09/09/16 06:00 96.9 71 20 155/77 (103) 97 Room Air Laboratory Data 24H Labs Laboratory Tests 2 09/09/16 05:44: Anion Gap 8, Glomerular Filtration Rate > 60.0, Blood Urea Nitrogen 14, Creatinine 0.76, Sodium Level 138, Potassium Level 3.9, Chloride Level 105, Carbon Dioxide Level 25, Calcium Level 8.6, Magnesium Level 2.1 CBC/BMP Laboratory Tests 09/09/16 05:44 Red Blood Count 3.72 L, Mean Corpuscular Volume 99.2 H, Mean Corpuscular Hemoglobin 33.7 H, Mean Corpuscular Hemoglobin Concent 34.0, Red Cell Distribution Width 16.3 H, Calcium Level 8.6 Current Medications Current Medications Acetaminophen (Tylenol Tab) 500 mg Q4HP PRN PO PAIN Last administered on 20:44; Start 08/26/16 at 17:45; Stop 09/25/16 at 17:44 Acetaminophen (Tylenol Tab) 650 mg Q4HP PRN PO MILD PAIN OR FEVER Last administered on 08/25/16 19:23; Start 08/23/16 at 01:00; Stop 08/26/16 at 16:32 ; Status DC Acetaminophen (Tylenol Tab) 1,000 mg Q4HP PRN PO PAIN; Start 08/26/16 at 16:45 ; Stop 09/25/16 at 16:44; Status Cancel Cefazolin Sodium 1 gm/Dextrose 50 ml @ 100 mls/hr Q6H IV Last administered on 08/27/16 12:24; Start 08/26/16 at 17:00; Stop 08/27/16 at 14:00; Status DC Collagenase (Santyl) DAILY TOP Last administered on 08/25/16 09:07; Start at 09:00; Stop 08/26/16 at 16:32; Status DC Collagenase (Santyl) 1 dose DAILY TOP Last administered on 09/09/16 09:17; Start 08/27/16 at 09:00; Stop 09/26/16 at 08:59 Dexamethasone (Decadron) 2 mg Q12H IV ; Start 09/02/16 at 17:00; Stop 09/02/16 at 17:00; Status DC Dexamethasone (Decadron) 2 mg Q12H PO Last administered on 09/09/16 09:16; Start 09/02/16 at 21:00; Stop 10/02/16 at 20:59 Dexamethasone (Decadron) 2 mg Q6H IV Last administered on 09/02/16 05:05; Start 08/29/16 at 23:00; Stop 09/02/16 at 07:21; Status DC Dexamethasone (Decadron) 4 mg Q6H IV Last administered on 08/29/16 18:33; Start 08/26/16 at 17:00; Stop 08/29/16 at 22:19; Status DC Dexamethasone (Decadron) 4 mg QID PO Last administered on 08/25/16 21:17; Start 08/23/16 at 09:00; Stop 08/26/16 at 16:32; Status DC Docusate Sodium (Colace) 100 mg BIDP PRN PO CONSTIPATION; Start 09/03/16 at 12: 30; Stop 10/03/16 at 12:29 Fentanyl Citrate (Sublimaze) 25 mcg Q5MP PRN IV MODERATE PAIN (PS 4-7) Last administered on 08/26/16 16:58; Start 08/26/16 at 16:45; Stop 08/26/16 at 17:45 ; Status DC Folic Acid (Folic Acid) 1 mg DAILY PO Last administered on 08/25/16 08:40; Start 08/23/16 at 09:00; Stop 08/26/16 at 16:32; Status DC Folic Acid (Folic Acid) 1 mg DAILY PO Last administered on 09/09/16 09:16; Start 08/27/16 at 09:00; Stop 09/26/16 at 08:59 Heparin Sodium (Porcine) (Heparin) 5,000 units BID SQ Last administered on 09/09 09:16; Start 08/31/16 at 09:00; Stop 09/13/16 at 08:59 Heparin Sodium (Porcine) (Heparin) 5,000 units Q8H SC Last administered on 08/23 05:45; Start 08/23/16 at 06:00; Stop 08/23/16 at 07:02; Status DC Home Med (Med Rec Complete!) ASDIRECTED XX ; Start 08/22/16 at 21:45; Stop 01/28 at 21:45; Status DC Labetalol HCl (Normodyne, Trandate) 5 mg ASDIRECTED IV ; Start 08/26/16 at 16:45 ; Stop 08/26/16 at 17:45; Status Cancel Lactated Ringer's 1,000 ml @ 100 mls/hr Q10H IV Last administered on 16:42; Start 08/26/16 at 16:45; Stop 08/26/16 at 17:45; Status DC Lorazepam (Ativan) 2 mg ASDIRECTED PRN PO SEE PROTOCOL; Start 08/23/16 at 07:15 ; Stop 08/25/16 at 06:42; Status DC Miscellaneous (Unresolved Clarification Entry) SEE LABEL COMMENTS UNRESOLVED XX ; Start 08/26/16 at 00:01; Stop 08/26/16 at 18:32; Status DC Morphine Sulfate (Morphine Sulfate Inj) 2 mg Q4HP PRN IV PAIN Last administered on 08/28/16 03:47; Start 08/26/16 at 18:00; Stop 09/14/16 at 17:59 Morphine Sulfate (Morphine Sulfate Inj) 2 mg Q5MP PRN IV MODERATE/SEVERE PAIN ( PS 7-10); Start 08/26/16 at 16:45; Stop 08/26/16 at 17:45; Status DC Multivitamins (Theragram-M) 1 tab DAILY PO Last administered on 08/25/16 08:40 ; Start 08/23/16 at 09:00; Stop 08/26/16 at 16:32; Status DC Multivitamins (Theragram-M) 1 tab DAILY PO Last administered on 09/09/16 09:16 ; Start 08/27/16 at 09:00; Stop 09/26/16 at 08:59 Nicotine (Nicoderm Cq 14mg) 1 patch DAILY TD Last administered on 08/25/16 08: 41; Start 08/23/16 at 09:00; Stop 08/26/16 at 16:32; Status DC Nicotine (Nicoderm Cq 14mg) 1 patch DAILY TD Last administered on 09/09/16 09: 17; Start 08/27/16 at 09:00; Stop 09/26/16 at 08:59 Ondansetron HCl (ZOFRAN INJection) 4 mg Q4HP PRN IV NAUSEA OR VOMITING; Start 08/26/16 at 16:45; Stop 08/26/16 at 17:45; Status DC Ondansetron HCl (ZOFRAN INJection) 4 mg Q6HP PRN IV NAUSEA OR VOMITING; Start 08/23/16 at 01:00; Stop 08/26/16 at 16:32; Status DC Potassium Chloride/Dextrose/ Sod Cl 1,000 ml @ 100 mls/hr Q10H IV Last administered on 08/26/16 16:41; Start 08/26/16 at 16:45; Stop 08/27/16 at 01:13 ; Status DC Sodium Chloride (Saline Lock Flush) 2 ml ASDIRECTED PRN IV SEE LABEL COMMENTS; Start 08/23/16 at 09:15; Stop 08/26/16 at 16:32; Status DC Sodium Chloride (Saline Lock Flush) 2 ml SLF IV Last administered on 08/26/16 06:18; Start 08/23/16 at 14:00; Stop 08/26/16 at 16:32; Status DC Thiamine HCl (Thiamine HCl) 100 mg BID PO Last administered on 08/25/16 21:17 ; Start 08/23/16 at 09:00; Stop 08/25/16 at 21:01; Status DC Thiamine HCl (Thiamine HCl) 100 mg DAILY PO Last administered on 09/09/16 09: 16; Start 08/27/16 at 09:00; Stop 09/26/16 at 08:59 Allergies Coded Allergies: No Known Allergies (Unverified , 07/20/16) NICHOLAS BELLA MD Sep 09, 2016 15:23
[2016-09-09 22:00] VITALS: BP 136/72
[2016-09-10 06:00] VITALS: BP 113/71
[2016-09-10 06:15] LABS: MEAN CORPUSCULAR HEMOGLOBIN 33.4 pg (27.0-33.0); MEAN CORPUSCULAR HGB CONC 33.4 g/dl (32.0-36.5); RED CELL DISTRIBUTION WIDTH 16.2 % (11.5-14.5); WHITE BLOOD COUNT 11.3 K/mm3 (4.0-10.0)
[2016-09-10 07:19] LABS: ANION GAP 9 MEQ/L (8-16); BLOOD UREA NITROGEN 18 MG/DL (7-18); CALCIUM LEVEL 8.2 MG/DL (8.5-10.1); CARBON DIOXIDE LEVEL 22 MEQ/L (21-32); CHLORIDE LEVEL 108 MEQ/L (98-107); CREATININE FOR GFR 0.53 MG/DL (0.70-1.30); GLOMERULAR FILTRATION RATE > 60.0 (>56); GLUCOSE, FASTING 106 MG/DL (70-105); MAGNESIUM LEVEL 2.1 MG/DL (1.8-2.4); POTASSIUM SERUM 4.2 MEQ/L (3.5-5.1); SODIUM LEVEL 139 MEQ/L (136-145)
[2016-09-10] MEDS: HEPARIN SOD (PORCINE) 5000 UNITS/ML VIAL SQ SCH ×2 (08:33→20:34)
[2016-09-10] MEDS: FOLIC ACID 1 MG TAB PO SCH (08:33)
[2016-09-10] MEDS: THIAMINE 100 MG TAB PO SCH (08:33)
[2016-09-10] MEDS: MULTIVITAMINS/MINERALS THERAP 1 TAB PO SCH (08:33)
[2016-09-10] MEDS: NICOTINE 14 MG/24 HR TRANSDERMAL TD SCH (08:34)
[2016-09-10] MEDS: SANTYL OINT 30GM TOP SCH (08:39)
[2016-09-10 08:49] LABS: REASON FOR REVIEW PLATELET MORPHOLOGY
--- NOTE | 2016-09-10 13:57 | IPNPDOC ---
Text Note Date of Service The patient was seen on 09/10/16. NOTE Subjective: Pt feels well. No new neurologic symptoms. Objective: Vitals: (see below) General: No acute distress, laying comfortably in bed. HEENT: Moist mucous membranes. Post. occipital incision clean and dry. No erythema. Neck: No JVD or lymphadenopathy Cardiac: RRR, No murmurs Pulm: Clear to auscultation b/l. No wheezing, rhonchi Abd: NT/ND + BS Ext: No edema or cyanosis Neuro: Alert, Oriented to person and place. Strength 5/5 BUE and BLE. CN 2-12 intact. F to N intact Labs (see below) Images: MRI Brain 08/22/16 IMPRESSION: 1. Right cerebellar mass lesion, thought to most likely be due to metastatic disease. 2. Regional mass effect with surrounding vasogenic edema. 3. Obstructive hydrocephalus. 4. Mild upward transtentorial herniation and right cerebellar tonsillar herniation. CT Abd/pelvis 08/22/16 IMPRESSION: 1. Evidence of circumferential wall thickening along the duodenum and jejunum compatible with enteritis. 2. Small fat containing umbilical hernia is seen. 3. Sigmoid diverticulosis. 4. 6 mm hypodensity at the hepatic dome which may represent small cyst vs hemangioma. CTA Chest 08/22/16 IMPRESSION: 1. No evidence for pulmonary embolism. 2. Severe scattered upper lobe predominant emphysema is seen. There is a spiculated nodule of speculated mass noted in the right lung apex measuring approximately 2.0 x 1.5 cm, highly suspicious for malignancy. Consider further evaluation with PET CT. 3. There is mild bilateral hilar lymphadenopathy noted. CT Chest 09/03/16 Impression:There are multiple lung nodules as discussed in detail body of the report. Most of these nodules has have increased in size. Additionally, the spiculated nodule in the apex of the right lung is considered suspicious. There is also increased in size. Therefore, follow-up PET scan might be considered for further evaluation of these nodules, particularly the spiculated nodule in the right apex. CT head 08/30/16 The craniotomy defect is unchanged. The degree of pneumocephaly in the postoperative bed has lessened as has the increased density in the postoperative bed consistent with blood. The fourth ventricle is unchanged in size and there is an unchanged shift of the cerebellum to the left. There is no evidence of acute intracranial hemorrhage. Overall the ventricles are unchanged in size. There is no change in appearance of the skull. IMPRESSION:Slight improvement as described above. Assessment/Plan 1. Metastatic non-small cell cancer, positive biopsy from cerebellar mass. CT of the chest (see below) appreciate Dr. Arnold's input. Patient scheduled for a PET scan today. Dr. Tadeo consulted as well. Spoke with Dr Arnold who will present case at cancer board with possible surgery on next . 2. Cerebellar mass with vasogenic edema - s/p Bilateral sub occipital craniectomy with excision of large mass 08/27/16. Pathology with non-small cell carcinoma, likely mets from the lung. Management per neurosurg. Received Decadron by neurosurgery. 3. Baseline memory impairment, questionable whether secondary to chronic alcohol abuse. Patient had distance himself from the family. Patient lacks capacity per psychiatry. Mentation improving. 4. Tobacco abuse- counseled on cessation. On nicotine patch. 5. History of alcohol abuse- on MVI/folic acid/thiamine. Counseling cessation. 6. Pressure sore- Dr. Gilliam consulted for possible debridement. Wound care. DVT prophy: Heparin subcutaneous Prognosis guarded. VS,Fishbone, I+O VS, Fishbone, I+O Laboratory Tests 09/10/16 05:47 Red Blood Count 3.63 L, Mean Corpuscular Volume 100.0 H, Mean Corpuscular Hemoglobin 33.4 H, Mean Corpuscular Hemoglobin Concent 33.4, Red Cell Distribution Width 16.2 H, Calcium Level 8.2 L Vital Signs Date Time Temp Pulse Resp B/P (MAP) Pulse Ox O2 Delivery O2 Flow Rate FiO2 09/10/16 06:00 96.9 77 17 113/71 (85) 94 Room Air I&O- Last 24 Hours up to 6 AM 09/10/16 06:00 Intake Total 1140 ml Output Total 1665 ml Balance -525 ml HENRY LUKE MD Sep 10, 2016 13:57
[2016-09-10 14:00] VITALS: BP 130/65
[2016-09-10 22:00] VITALS: BP 128/62
[2016-09-11 06:00] VITALS: BP 138/82
[2016-09-11 06:30] LABS: MEAN CORPUSCULAR HEMOGLOBIN 33.1 pg (27.0-33.0); MEAN CORPUSCULAR HGB CONC 32.9 g/dl (32.0-36.5); MEAN CORPUSCULAR VOLUME 100.5 fl (80.0-96.0); RED CELL DISTRIBUTION WIDTH 16.1 % (11.5-14.5); WHITE BLOOD COUNT 9.3 K/mm3 (4.0-10.0)
[2016-09-11 06:42] LABS: ANION GAP 8 MEQ/L (8-16); BLOOD UREA NITROGEN 19 MG/DL (7-18); CALCIUM LEVEL 8.4 MG/DL (8.5-10.1); CARBON DIOXIDE LEVEL 22 MEQ/L (21-32); CHLORIDE LEVEL 107 MEQ/L (98-107); CREATININE FOR GFR 0.61 MG/DL (0.70-1.30); GLOMERULAR FILTRATION RATE > 60.0 (>56); GLUCOSE, FASTING 133 MG/DL (70-105); MAGNESIUM LEVEL 2.2 MG/DL (1.8-2.4); SODIUM LEVEL 137 MEQ/L (136-145)
[2016-09-11] MEDS: THIAMINE 100 MG TAB PO SCH (09:20)
[2016-09-11] MEDS: MULTIVITAMINS/MINERALS THERAP 1 TAB PO SCH (09:20)
[2016-09-11] MEDS: FOLIC ACID 1 MG TAB PO SCH (09:21)
[2016-09-11] MEDS: NICOTINE 14 MG/24 HR TRANSDERMAL TD SCH (09:22)
[2016-09-11] MEDS: SANTYL OINT 30GM TOP SCH (09:22)
--- NOTE | 2016-09-11 11:34 | IPNPDOC ---
Text Note Date of Service The patient was seen on 09/11/16. NOTE Subjective: Pt feels well. No new neurologic symptoms. Nurse noted some purulent drainage at the left hip site. Objective: Vitals: (see below) General: No acute distress, laying comfortably in bed. HEENT: Moist mucous membranes. Post. occipital incision clean and dry. No erythema. Neck: No JVD or lymphadenopathy Cardiac: RRR, No murmurs Pulm: Clear to auscultation b/l. No wheezing, rhonchi Abd: NT/ND + BS Ext: No edema or cyanosis Neuro: Alert, Oriented to person and place. Strength 5/5 BUE and BLE. CN 2-12 intact. F to N intact Labs (see below) Images: MRI Brain 08/22/16 IMPRESSION: 1. Right cerebellar mass lesion, thought to most likely be due to metastatic disease. 2. Regional mass effect with surrounding vasogenic edema. 3. Obstructive hydrocephalus. 4. Mild upward transtentorial herniation and right cerebellar tonsillar herniation. CT Abd/pelvis 08/22/16 IMPRESSION: 1. Evidence of circumferential wall thickening along the duodenum and jejunum compatible with enteritis. 2. Small fat containing umbilical hernia is seen. 3. Sigmoid diverticulosis. 4. 6 mm hypodensity at the hepatic dome which may represent small cyst vs hemangioma. CTA Chest 08/22/16 IMPRESSION: 1. No evidence for pulmonary embolism. 2. Severe scattered upper lobe predominant emphysema is seen. There is a spiculated nodule of speculated mass noted in the right lung apex measuring approximately 2.0 x 1.5 cm, highly suspicious for malignancy. Consider further evaluation with PET CT. 3. There is mild bilateral hilar lymphadenopathy noted. CT Chest 09/03/16 Impression:There are multiple lung nodules as discussed in detail body of the report. Most of these nodules has have increased in size. Additionally, the spiculated nodule in the apex of the right lung is considered suspicious. There is also increased in size. Therefore, follow-up PET scan might be considered for further evaluation of these nodules, particularly the spiculated nodule in the right apex. CT head 08/30/16 The craniotomy defect is unchanged. The degree of pneumocephaly in the postoperative bed has lessened as has the increased density in the postoperative bed consistent with blood. The fourth ventricle is unchanged in size and there is an unchanged shift of the cerebellum to the left. There is no evidence of acute intracranial hemorrhage. Overall the ventricles are unchanged in size. There is no change in appearance of the skull. IMPRESSION:Slight improvement as described above. Assessment/Plan 1. Metastatic non-small cell cancer, positive biopsy from cerebellar mass. CT of the chest (see below) appreciate Dr. Arnold's input. Patient scheduled for a PET scan today. Dr. Tadeo consulted as well. Spoke with Dr Arnold who will present case at cancer board with possible surgery on next . 2. Cerebellar mass with vasogenic edema - s/p Bilateral sub occipital craniectomy with excision of large mass 08/27/16. Pathology with non-small cell carcinoma, likely mets from the lung. Management per neurosurg. Received Decadron by neurosurgery. 3. Baseline memory impairment, questionable whether secondary to chronic alcohol abuse. Patient had distance himself from the family. Patient lacks capacity per psychiatry. Mentation improving. 4. Tobacco abuse- counseled on cessation. On nicotine patch. 5. History of alcohol abuse- on MVI/folic acid/thiamine. Counseling cessation. 6. Pressure wound left hip - some purulent drainage today. Start augmentin. Wound cx with E. faecalis. Wound care. 7. Thrombocytopenia - no bleeding. Cont to monitor. d/c heparin. DVT prophy: OOB ambulate Prognosis guarded. VS,Fishbone, I+O VS, Fishbone, I+O Laboratory Tests 09/11/16 05:38 Red Blood Count 3.74 L, Mean Corpuscular Volume 100.5 H, Mean Corpuscular Hemoglobin 33.1 H, Mean Corpuscular Hemoglobin Concent 32.9, Red Cell Distribution Width 16.1 H, Calcium Level 8.4 L Vital Signs Date Time Temp Pulse Resp B/P (MAP) Pulse Ox O2 Delivery O2 Flow Rate FiO2 09/11/16 06:00 97.7 70 18 138/82 (100) 96 Room Air I&O- Last 24 Hours up to 6 AM 09/11/16 05:59 Intake Total 3380 ml Output Total 1725 ml Balance 1655 ml HENRY LUKE MD Sep 11, 2016 11:34
[2016-09-11] MEDS: AUGMENTIN 875 MG TAB PO SCH ×2 (12:12→20:43)
[2016-09-11 14:00] VITALS: BP 168/78
--- NOTE | 2016-09-11 14:10 | IPN ---
DATE: 09/11/2016 I had a long conversation with both Mr. Sánchez and his brother Mr. Nicko Sánchez. I have explained the difficult decision making and the surgical option. I have gone through risks and benefits of surgery including mortality, pain control, air leak, pneumonia, and bleeding. I have indicated to them again that while I have scheduled him for surgery on that I am going to present it at tumor conference on Tuesday for the entire multidisciplinary group to consider the options. Mr. Srinivas Sánchez, the patient, became agitated with the two nurses in the room. Therefore, I excused the nurses and he returned to a normal rational state. It does look as if he does understand everything I have said and so his brother Nicko who is his proxy does. I have had them sign the operative consent although again stressing that I am not absolutely 100% committed until after the tumor conference. I will again seen him Tuesday afternoon after tumor conference. Total time spent was 45 minutes.
[2016-09-11 22:00] VITALS: BP 131/68
--- NOTE | 2016-09-12 08:33 | IPNPDOC ---
Text Note Date of Service The patient was seen on 09/12/16. NOTE Subjective: Pt refused treatment and labs today. States he wants to go home. No capacity per psych. Objective: Vitals: (see below) General: No acute distress, laying comfortably in bed. Refused physical exam. Labs (see below) Images: MRI Brain 08/22/16 IMPRESSION: 1. Right cerebellar mass lesion, thought to most likely be due to metastatic disease. 2. Regional mass effect with surrounding vasogenic edema. 3. Obstructive hydrocephalus. 4. Mild upward transtentorial herniation and right cerebellar tonsillar herniation. CT Abd/pelvis 08/22/16 IMPRESSION: 1. Evidence of circumferential wall thickening along the duodenum and jejunum compatible with enteritis. 2. Small fat containing umbilical hernia is seen. 3. Sigmoid diverticulosis. 4. 6 mm hypodensity at the hepatic dome which may represent small cyst vs hemangioma. CTA Chest 08/22/16 IMPRESSION: 1. No evidence for pulmonary embolism. 2. Severe scattered upper lobe predominant emphysema is seen. There is a spiculated nodule of speculated mass noted in the right lung apex measuring approximately 2.0 x 1.5 cm, highly suspicious for malignancy. Consider further evaluation with PET CT. 3. There is mild bilateral hilar lymphadenopathy noted. CT Chest 09/03/16 Impression:There are multiple lung nodules as discussed in detail body of the report. Most of these nodules has have increased in size. Additionally, the spiculated nodule in the apex of the right lung is considered suspicious. There is also increased in size. Therefore, follow-up PET scan might be considered for further evaluation of these nodules, particularly the spiculated nodule in the right apex. CT head 08/30/16 The craniotomy defect is unchanged. The degree of pneumocephaly in the postoperative bed has lessened as has the increased density in the postoperative bed consistent with blood. The fourth ventricle is unchanged in size and there is an unchanged shift of the cerebellum to the left. There is no evidence of acute intracranial hemorrhage. Overall the ventricles are unchanged in size. There is no change in appearance of the skull. IMPRESSION:Slight improvement as described above. Assessment/Plan 1. Metastatic non-small cell cancer, positive biopsy from cerebellar mass. CT of the chest (see below) appreciate Dr. Arnold's input. Patient scheduled for a PET scan today. Dr. Tadeo consulted as well. Spoke with Dr Arnold who will present case at cancer board with possible surgery on next . 2. Cerebellar mass with vasogenic edema - s/p Bilateral sub occipital craniectomy with excision of large mass 08/27/16. Pathology with non-small cell carcinoma, likely mets from the lung. Management per neurosurg. Received Decadron by neurosurgery. 3. Baseline memory impairment, questionable whether secondary to chronic alcohol abuse. Patient had distance himself from the family. Patient lacks capacity per psychiatry. Mentation improving. 4. Tobacco abuse- counseled on cessation. On nicotine patch. 5. History of alcohol abuse- on MVI/folic acid/thiamine. Counseling cessation. 6. Pressure wound left hip - some purulent drainage today. Start augmentin. Wound cx with E. faecalis. Wound care. 7. Thrombocytopenia - no bleeding. Cont to monitor. d/c heparin. DVT prophy: OOB ambulate Prognosis guarded. Pt refused labs and medications today. VS,Fishbone, I+O VS, Fishbone, I+O Vital Signs Date Time Temp Pulse Resp B/P (MAP) Pulse Ox O2 Delivery O2 Flow Rate FiO2 09/11/16 22:00 98.3 86 19 131/68 (89) 96 Room Air I&O- Last 24 Hours up to 6 AM 09/12/16 06:00 Intake Total 3480 ml Output Total 2025 ml Balance 1455 ml HENRY LUKE MD Sep 12, 2016 08:33
[2016-09-12] MEDS: THIAMINE 100 MG TAB PO SCH ×2 (09:00→13:46)
[2016-09-12] MEDS: AUGMENTIN 875 MG TAB PO SCH ×3 (09:00→20:36)
[2016-09-12] MEDS: NICOTINE 14 MG/24 HR TRANSDERMAL TD SCH ×2 (09:00→13:47)
[2016-09-12] MEDS: SANTYL OINT 30GM TOP SCH ×2 (09:00→13:47)
[2016-09-12] MEDS: MULTIVITAMINS/MINERALS THERAP 1 TAB PO SCH ×2 (09:00→13:45)
[2016-09-12] MEDS: FOLIC ACID 1 MG TAB PO SCH ×2 (09:00→13:45)
[2016-09-12 14:00] VITALS: BP 115/67
[2016-09-12] MEDS: ACETAMINOPHEN 500 MG TAB PO PRN (20:37)
[2016-09-12 22:00] VITALS: BP 119/58
[2016-09-13 06:00] VITALS: BP 132/77
--- NOTE | 2016-09-13 07:52 | IPNPDOC ---
Text Note Date of Service The patient was seen on 09/13/16. NOTE Subjective: Pt took his medications yesterday. Agreed to have labs done. Objective: Vitals: (see below) General: No acute distress, laying comfortably in bed. HEENT: Moist mucous membranes. Post. occipital incision clean and dry. No erythema. Neck: No JVD or lymphadenopathy Cardiac: RRR, No murmurs Pulm: Clear to auscultation b/l. No wheezing, rhonchi Abd: NT/ND + BS Ext: No edema or cyanosis. left hip pressure wound improving. Bandage intact. No erythema/drainage. Neuro: Alert, Oriented to person and place. Strength 5/5 BUE and BLE. CN 2-12 intact. F to N intact Labs (see below) Images: MRI Brain 08/22/16 IMPRESSION: 1. Right cerebellar mass lesion, thought to most likely be due to metastatic disease. 2. Regional mass effect with surrounding vasogenic edema. 3. Obstructive hydrocephalus. 4. Mild upward transtentorial herniation and right cerebellar tonsillar herniation. CT Abd/pelvis 08/22/16 IMPRESSION: 1. Evidence of circumferential wall thickening along the duodenum and jejunum compatible with enteritis. 2. Small fat containing umbilical hernia is seen. 3. Sigmoid diverticulosis. 4. 6 mm hypodensity at the hepatic dome which may represent small cyst vs hemangioma. CTA Chest 08/22/16 IMPRESSION: 1. No evidence for pulmonary embolism. 2. Severe scattered upper lobe predominant emphysema is seen. There is a spiculated nodule of speculated mass noted in the right lung apex measuring approximately 2.0 x 1.5 cm, highly suspicious for malignancy. Consider further evaluation with PET CT. 3. There is mild bilateral hilar lymphadenopathy noted. CT Chest 09/03/16 Impression:There are multiple lung nodules as discussed in detail body of the report. Most of these nodules has have increased in size. Additionally, the spiculated nodule in the apex of the right lung is considered suspicious. There is also increased in size. Therefore, follow-up PET scan might be considered for further evaluation of these nodules, particularly the spiculated nodule in the right apex. CT head 08/30/16 The craniotomy defect is unchanged. The degree of pneumocephaly in the postoperative bed has lessened as has the increased density in the postoperative bed consistent with blood. The fourth ventricle is unchanged in size and there is an unchanged shift of the cerebellum to the left. There is no evidence of acute intracranial hemorrhage. Overall the ventricles are unchanged in size. There is no change in appearance of the skull. IMPRESSION:Slight improvement as described above. Assessment/Plan 1. Metastatic non-small cell cancer, positive biopsy from cerebellar mass. CT of the chest (see below) appreciate Dr. Arnold's input. Patient scheduled for a PET scan today. Dr. Tadeo consulted as well. Spoke with Dr Arnold who will present case at cancer board with possible surgery on next . 2. Cerebellar mass with vasogenic edema - s/p Bilateral sub occipital craniectomy with excision of large mass 08/27/16. Pathology with non-small cell carcinoma, likely mets from the lung. Management per neurosurg. Received Decadron by neurosurgery. 3. Baseline memory impairment, questionable whether secondary to chronic alcohol abuse. Patient had distance himself from the family. Patient lacks capacity per psychiatry. Mentation improving. 4. Tobacco abuse- counseled on cessation. On nicotine patch. 5. History of alcohol abuse- on MVI/folic acid/thiamine. Counseling cessation. 6. Pressure wound left hip - Cont augmentin. Wound cx with E. faecalis. Wound care. 7. Thrombocytopenia - no bleeding. Cont to monitor. d/c heparin. DVT prophy: OOB ambulate Prognosis guarded. VS,Fishbone, I+O VS, Fishbone, I+O Vital Signs Date Time Temp Pulse Resp B/P (MAP) Pulse Ox O2 Delivery O2 Flow Rate FiO2 09/13/16 06:00 97.7 65 19 132/77 (95) 96 Room Air I&O- Last 24 Hours up to 6 AM 09/13/16 06:00 Intake Total 1800 ml Output Total 2100 ml Balance -300 ml HENRY LUKE MD Sep 13, 2016 07:52
[2016-09-13] MEDS: FOLIC ACID 1 MG TAB PO SCH (08:39)
[2016-09-13] MEDS: THIAMINE 100 MG TAB PO SCH (08:39)
[2016-09-13] MEDS: AUGMENTIN 875 MG TAB PO SCH ×2 (08:39→20:10)
[2016-09-13] MEDS: MULTIVITAMINS/MINERALS THERAP 1 TAB PO SCH (08:39)
[2016-09-13] MEDS: NICOTINE 14 MG/24 HR TRANSDERMAL TD SCH (08:40)
[2016-09-13] MEDS: SANTYL OINT 30GM TOP SCH (08:40)
[2016-09-13 09:59] LABS: BASO % 0.1 % (0.0-1.0); EOS # 0.2 K/mm3 (0.0-0.50); EOS % 1.9 % (0.0-3.0); LARGE UNSTAINED CELL # 0.1 K/mm3 (0.0-0.4); LARGE UNSTAINED CELL % 0.9 % (0.0-4.0); LYMPH # 1.4 K/mm3 (1.5-4.5); LYMPH % 14.1 % (24.0-44.0); MEAN CORPUSCULAR HEMOGLOBIN 33.1 pg (27.0-33.0); MEAN CORPUSCULAR HGB CONC 33.3 g/dl (32.0-36.5); MEAN CORPUSCULAR VOLUME 99.6 fl (80.0-96.0); MONO # 0.5 K/mm3 (0.0-0.8); MONO % 4.7 % (0.0-5.0); NEUTROPHILS # 7.4 K/mm3 (1.8-7.7); NEUTROPHILS % 78.3 % (36.0-66.0); PLATELET COUNT, AUTOMATED 135 k/mm3 (150-450); RED CELL DISTRIBUTION WIDTH 16.2 % (11.5-14.5); WHITE BLOOD COUNT 9.5 K/mm3 (4.0-10.0)
[2016-09-13 10:36] LABS: ANION GAP 8 MEQ/L (8-16); BLOOD UREA NITROGEN 18 MG/DL (7-18); CALCIUM LEVEL 8.2 MG/DL (8.5-10.1); CARBON DIOXIDE LEVEL 27 MEQ/L (21-32); CHLORIDE LEVEL 105 MEQ/L (98-107); CREATININE FOR GFR 0.67 MG/DL (0.70-1.30); GLOMERULAR FILTRATION RATE > 60.0 (>56); GLUCOSE, FASTING 116 MG/DL (70-105); POTASSIUM SERUM 3.9 MEQ/L (3.5-5.1); SODIUM LEVEL 140 MEQ/L (136-145)
[2016-09-13 14:00] VITALS: BP 137/70
[2016-09-13] MEDS: ACETAMINOPHEN 500 MG TAB PO PRN (20:11)
[2016-09-13 22:00] VITALS: BP 130/58
[2016-09-14 06:00] VITALS: BP 116/61
[2016-09-14] MEDS: AUGMENTIN 875 MG TAB PO SCH ×2 (09:12→20:26)
[2016-09-14] MEDS: THIAMINE 100 MG TAB PO SCH (09:12)
[2016-09-14] MEDS: FOLIC ACID 1 MG TAB PO SCH (09:12)
[2016-09-14] MEDS: NICOTINE 14 MG/24 HR TRANSDERMAL TD SCH (09:12)
[2016-09-14] MEDS: MULTIVITAMINS/MINERALS THERAP 1 TAB PO SCH (09:12)
[2016-09-14] MEDS: SANTYL OINT 30GM TOP SCH (09:13)
--- NOTE | 2016-09-14 13:38 | IPNPDOC ---
Text Note Date of Service The patient was seen on 09/14/16. NOTE Subjective: Patient is a 56 year old male with a no PMHx who presented to the ER with confusion. He was found to have a brain lesion that was resected by Dr. Flores. Upon further imaging patient was found to have a lung mass that has continued to evaluated at this time. Patient was seen and examined at the bedside. Currently he has no chest pain, shortness of breath or cough. Objective: Vitals (See below) General: Lying in bed, no acute distress, comfortable, AAOx3 HEENT: NC, AT CVS: RRR, +S1S2 Lungs: Fair air entry b/l Abdomen: Soft, ND, NT, +BSx4 Extremities: +PPx4, - Edema, - Calf tenderness Assessment and plan: 1. Metastatic non-small cell cancer - presented with confusion found to be 2/2 to cerebellar mass - Pathology positive for non-small cell cancer - CT chest 09/03: multiple lung nodules - increased in size, spiculated nodule in apex, - PET scan 09/08: hypermetabolic uptake in R upper lobe - Dr. Arnold to determine if surgery is required; possible OR time for 2. s/p Confusion 2/2 Cerebellar mass with vasogenic edema - CT head 08/30: craniotomy defect unchanged; - Mentation improved - s/p Decadron 3. Memory impairment - Likely baseline - Evaluate by Psychiatry; unable to make own decisions - Healthcare proxy is son 4. Tobacco abuse - c/w nicotine patch 5. History of alcohol abuse - c/w MVI, Thiamine and Folate 6. Pressure wound at left hip - Wound culture: E. faecalis - c/w Wound care - c/w Augmentin 7. Thrombocytopenia - no evidence of bleeding - Will follow CBC 8. DVT prophylaxis - c/w SCDs Disposition: - Poor guarded VS,Fishbone, I+O VS, Fishbone, I+O Vital Signs Date Time Temp Pulse Resp B/P (MAP) Pulse Ox O2 Delivery O2 Flow Rate FiO2 09/14/16 09:00 Room Air 09/14/16 06:00 97.7 68 17 116/61 (79 94 I&O- Last 24 Hours up to 6 AM 09/14/16 05:59 Intake Total 3780 ml Output Total 1750 ml Balance 2030 ml XIOMY ADLER MD Sep 14, 2016 13:38
[2016-09-14 14:00] VITALS: BP 117/60
[2016-09-14] MEDS: ACETAMINOPHEN 500 MG TAB PO PRN (18:34)
[2016-09-14 22:00] VITALS: BP 128/63
[2016-09-15 06:00] VITALS: BP 136/75
[2016-09-15] MEDS: SANTYL OINT 30GM TOP SCH (09:00)
[2016-09-15] MEDS: AUGMENTIN 875 MG TAB PO SCH ×2 (09:00→20:11)
[2016-09-15] MEDS: THIAMINE 100 MG TAB PO SCH (09:01)
[2016-09-15] MEDS: NICOTINE 14 MG/24 HR TRANSDERMAL TD SCH (09:01)
[2016-09-15] MEDS: FOLIC ACID 1 MG TAB PO SCH (09:01)
[2016-09-15] MEDS: MULTIVITAMINS/MINERALS THERAP 1 TAB PO SCH (09:01)
[2016-09-15] MEDS: ACETAMINOPHEN 500 MG TAB PO PRN ×3 (11:06→20:11)
[2016-09-15 14:00] VITALS: BP 160/80
--- NOTE | 2016-09-15 14:07 | IPNPDOC ---
Text Note Date of Service The patient was seen on 09/15/16. NOTE Subjective: Patient is a 56 year old male with a no PMHx who presented to the ER with confusion. He was found to have a brain lesion that was resected by Dr. Flores. Upon further imaging patient was found to have a lung mass that has continued to evaluated at this time. Patient was seen and examined at the bedside. He is anxious to get home. Objective: Vitals (See below) General: Lying in bed, no acute distress, comfortable, AAOx3 HEENT: NC, AT CVS: RRR, +S1S2 Lungs: Fair air entry b/l Abdomen: Soft, ND, NT, +BSx4 Extremities: +PPx4, - Edema, - Calf tenderness Assessment and plan: 1. Metastatic non-small cell cancer - Presented with confusion found to be 2/2 to cerebellar mass - Pathology positive for non-small cell cancer - CT chest 09/03: multiple lung nodules - increased in size, spiculated nodule in apex, - PET scan 09/08: hypermetabolic uptake in R upper lobe - Discussed with Dr. Arnold; will not go for surgery and family has decided to not pursue surgical options - Will need to get Oncology referral, establish primary care and establish care at home (re: lack of capacity) 2. s/p Confusion 2/2 Cerebellar mass with vasogenic edema - CT head 08/30: craniotomy defect unchanged; - Mentation improved - s/p Decadron 3. Memory impairment - Likely baseline - Evaluate by Psychiatry; unable to make own decisions - Healthcare proxy is son 4. Tobacco abuse - c/w nicotine patch 5. History of alcohol abuse - c/w MVI, Thiamine and Folate 6. Pressure wound at left hip - Wound culture: E. faecalis - c/w Wound care - c/w Augmentin (Day #5 of 7) 7. Thrombocytopenia - no evidence of bleeding - Will follow CBC 8. DVT prophylaxis - c/w SCDs Disposition: - Will need to establish PCP, Oncology Referral and call taker at home VS,Fishbone, I+O VS, Fishbone, I+O Vital Signs Date Time Temp Pulse Resp B/P (MAP) Pulse Ox O2 Delivery O2 Flow Rate FiO2 09/15/16 09:00 Room Air 09/15/16 06:00 97.0 72 19 136/75 (95) 98 I&O- Last 24 Hours up to 6 AM 09/15/16 05:59 Intake Total 2635 ml Output Total 1350 ml Balance 1285 ml XIOMY ADLER MD Sep 15, 2016 14:07
--- NOTE | 2016-09-15 14:30 | IPN ---
DATE: 09/15/2016 I just got done presenting Mr. Sánchez at tumor conference. An extensive discussion revolved around the status of the left lung lesion. Even though it appears lobulated, it has grown over the past two years and there is real concern, not unreasonable, that this may represent another metastasis. The conference then was very much in favor of needle biopsy of the left side nodule prior to committing to surgery. Immediately following the cancer conference, I went to the patient's room. His brother and sisters were present. I then explained to both the patient and to his family the concern of the left lung lesion, pulling up the CAT scans and showing them the left lung lesion. The patient then volunteered that he did not want to consider a surgical option at all and that he had changed his mind, but he would consider chemotherapy. I did indicate that if the surgical option was off the table per patient that there was no sense in doing a needle biopsy. We would assume that he would have inoperable disease. It was a far ranging discussion with him and his family. The patient is very keen on seeking treatment as an outpatient and getting out of the hospital. While I cannot discharge him, I will communicate his decision to the hospitalists who are his primary care physicians if in the hospital. My discussion with the family approximately lasted from 1:00 to 1:30. His FEV1 is 1.32 on bedside spirometry. If he were to undergo a lobectomy, it would leave him with a predicted postoperative FEV1 of 1. He could not undergo a pneumonectomy. In any case, per the patient, surgery is now off the table. I will inform his primary care doctor of the hospitalist service as to his decision and plans should be made for him to be treated as an outpatient. On physical examination, her: Lungs: Show expiratory wheezing on both sides with decreased breath sounds in the left upper lobe with E to A egophony in the left upper hemithorax. Percussion note is dull in the upper left hemithorax, but resonant in the lower hemithorax. Cardiac Exam: Without murmurs, clicks, gallops, or rubs. I cannot feel her PMI. S1, S2 are normal. Abdomen: Soft. Nontender. Bowel sounds are positive. She is slightly tympanitic and distended. There is no costovertebral angle (CVA) tenderness. No hepatomegaly. Extremities: Show trace pretibial edema. No calf tenderness. No differential swelling of the upper extremities. Skin: Warm, dry and perfused. Without cyanosis or mottling, including that of the nail beds and knees. She has numerous ecchymoses all over her skin. Neck: Supple. There is no jugular venous distention. No subcutaneous emphysema. Trachea is midline. Mouth: Shows her mucous membranes to be pink and moist. Lips and commissures are without lesions. There is no thrush. Eyes: Show her pupils to be equal and reactive. Extraocular movements intact. Sclerae nonicteric. Neurologic: Shows II-XII intact along with gross motor and gross sensation intact. Gait is not tested. Psychiatric shows her to be awake, alert, and oriented times three with appropriate mood and affect and conversational.
[2016-09-15 22:00] VITALS: BP 134/68
[2016-09-16 06:00] VITALS: BP 140/88
[2016-09-16] MEDS: NICOTINE 14 MG/24 HR TRANSDERMAL TD SCH (09:00)
[2016-09-16] MEDS: THIAMINE 100 MG TAB PO SCH (09:00)
[2016-09-16] MEDS: AUGMENTIN 875 MG TAB PO SCH ×2 (09:00→20:57)
[2016-09-16] MEDS: SANTYL OINT 30GM TOP SCH ×2 (09:00→16:21)
[2016-09-16] MEDS: MULTIVITAMINS/MINERALS THERAP 1 TAB PO SCH (09:00)
[2016-09-16] MEDS: FOLIC ACID 1 MG TAB PO SCH (09:00)
[2016-09-16 14:00] VITALS: BP 140/75
--- NOTE | 2016-09-16 14:11 | IPNPDOC ---
Text Note Date of Service The patient was seen on 09/16/16. NOTE Subjective: Patient is a 56 year old male with a no PMHx who presented to the ER with confusion. He was found to have a brain lesion that was resected by Dr. Flores. Upon further imaging patient was found to have a lung mass that has continued to evaluated at this time. Patient was seen and examined at the bedside. He notes that he is ready to get home. He denies any other issues at this time. Objective: Vitals (See below) General: Lying in bed, no acute distress, comfortable, AAOx3 HEENT: NC, AT CVS: RRR, +S1S2 Lungs: Fair air entry b/l Abdomen: Soft, ND, NT, +BSx4 Extremities: +PPx4, - Edema, - Calf tenderness Assessment and plan: 1. Metastatic non-small cell cancer - Presented with confusion found to be 2/2 to cerebellar mass - Pathology positive for non-small cell cancer - CT chest 09/03: multiple lung nodules - increased in size, spiculated nodule in apex, - PET scan 09/08: hypermetabolic uptake in R upper lobe - Discussed with Dr. Arnold; will not go for surgery and family has decided to not pursue surgical options - Discussed with Dr. Jones to re-evaluate capacity to make decisions - Will setup Primary care and oncology referral 2. s/p Confusion 2/2 Cerebellar mass with vasogenic edema - CT head 08/30: craniotomy defect unchanged; - Mentation improved - s/p Decadron 3. Memory impairment - Likely baseline - Evaluated by Psychiatry; unable to make own decisions - Will re-evaluate today; case discussed with Dr. Jones - Healthcare proxy is son 4. Tobacco abuse - c/w nicotine patch 5. History of alcohol abuse - c/w MVI, Thiamine and Folate 6. Pressure wound at left hip - Wound culture: E. faecalis - c/w Wound care - c/w Augmentin (Day #6 of 7) 7. Thrombocytopenia - no evidence of bleeding - Will follow CBC 8. DVT prophylaxis - c/w SCDs Disposition: - Psychiatry re-evaluation today - Will need to establish PCP and Oncology Referral VS,Fishbone, I+O VS, Fishbone, I+O Vital Signs Date Time Temp Pulse Resp B/P (MAP) Pulse Ox O2 Delivery O2 Flow Rate FiO2 09/16/16 08:00 Room Air 09/16/16 06:00 98.7 72 18 140/88 (209) 96 I&O- Last 24 Hours up to 6 AM 09/16/16 06:00 Intake Total 1560 ml Output Total 1800 ml Balance -240 ml XIOMY ADLER MD Sep 16, 2016 14:11
--- NOTE | 2016-09-16 15:50 | MHIPNPDOC ---
[facility] Progress Note Progress Note DATE OF SERVICE: 09/16/16 HISTORY: 56 year old male with history of metastatic non small cell cancer who underwent a Right cerebellar mass resection on August 27 and has been observed to have memory impairment. Was evaluated by Psychiatry shortly after his surgery and was found not capable of making his own decisions regarding his health. today he was re evaluated and he was found in good spirits, laughing, joking, "willing to fight " ( the disease). VITAL SIGNS: See below. NEW TEST RESULTS: N/A CURRENT MEDICATIONS: See below. MENTAL STATUS EXAMINATION: Patient is a 56-year old male, who is alert, cooperative, pleasant, dressed in hospital clothes, laying in bed, with good eye contact and good rapport. Speech: Is Spontaneous, articulate, coherent. Language skills are Fair Thought processes including: Intact. Thought content: He perseveres about his health problems, about him wanting to make the right decisions regarding "his body". Abstract reasoning, and computation: Not assessed Description of associations: Not loose Description of abnormal or psychotic thoughts: he didn't endorse any bizarre ideas or delusions. Denied suicidal or homicidal ideation, denied auditory or visual hallucinations. Judgment: Improving Insight: Improving. Orientation: Oriented partially to date ( oriented to ange and year but not to date), oriented to place and person. Recent and remote memory: Evaluated immediate memory, asking himself to repeat three words (orange, ball and [place]) immediately after they were said and five minutes later. He was able to recall them 5 minutes after they were said. Attention span and concentration: Fair. Language: Normal. Fund of knowledge: Not assessed. Mood: Euthymic but at one point in the conversation almost cried when he was asked if he felt angry about his illness. Affect: Full range, appropriate, congruent to mood. DIAGNOSES: 1. Metastatic non small cell cancer 2. Alcohol use disorder 3. Marijuana use disorder 4. Adjustment disorder ASSESSMENT:Patient seems to have some improvement today. His memory has improved and so has his mood and affect. He is very strong about wanting to decide what to do with his body, he is displacing his anger onto one of his sister because she "is the one who wants to run the show" and "she is a little bit loopy". 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 he also admitted to use marijuana regularly and he was partially oriented to date and time of the year. I recommend to observe the patient, because he has been having severe mood swings according to staff and has been non cooperative. If he becomes aggressive and uncooperative again, we will have to think of delirium. IF HE CONTINUES TO BE ORIENTED X 3, COOPERATIVE, WITH GOOD MEMORY AND UNDERSTANDS WHAT IT TAKES TO BE DISCHARGED AND TAKE THE RIGHT STEPS TO FOLLOW UP , THEN WE CAN SAY HE HAS CAPACITY, BUT WE CAN'T SAY HE HAS CAPACITY WITH ONLY ONE PSYCHIATRIC EVALUATION. HE NEEDS A FOLLOW UP TOMORROW AND HE NEEDS TO BE OBSERVED BY STAFF TONIGHT. HE CAN BE WAXING AND WANING AND IF THT' THE CASE, HE CAN'T BE DISCHARGED. IF DISCHARGE IS BEING CONSIDERED, HE CAN'T GO BACK HOME TO LIVE ON HIS OWN WITH A TERMINAL ILLNESS. EVEN IF HE SEEMS TO BE LAUGHING ABOUT HIS CURRENT SITUATION, HE MUST BE DEPRESSED AND ANXIOUS, AND HE IS PROBABLY CONCEALING IT. HE WOULD BE AT RISK FOR SUICIDE IF HE GOES HOME ALONE. HE NEEDS TO LIVE WITH SOMEONE THAT HELPS HIM DEAL WITH HIS ILLNESS AND HIS MENTAL HEALTH/SUBSTANCE USE DISORDER. MANAGEMENT PLAN: Will re evaluate tomorrow. TIME SPENT: 30 minutes. Vital Signs Vital Signs Date Time Temp Pulse Resp B/P (MAP) Pulse Ox O2 Delivery O2 Flow Rate FiO2 09/16/16 14:00 98.7 84 19 140/75 (96) 97 Room Air Current Medications Current Medications Acetaminophen (Tylenol Tab) 500 mg Q4HP PRN PO PAIN Last administered on 20:11; Start 08/26/16 at 17:45; Stop 09/25/16 at 17:44 Acetaminophen (Tylenol Tab) 650 mg Q4HP PRN PO MILD PAIN OR FEVER Last administered on 08/25/16 19:23; Start 08/23/16 at 01:00; Stop 08/26/16 at 16:32 ; Status DC Acetaminophen (Tylenol Tab) 1,000 mg Q4HP PRN PO PAIN; Start 08/26/16 at 16:45 ; Stop 09/25/16 at 16:44; Status Cancel Amoxicillin/ Clavulanate Potassium (Augmentin) 875 mg BID PO Last administered on 09/15/16 20:11; Start 09/11/16 at 09:00; Stop 09/18/16 at 08:59 Cefazolin Sodium 1 gm/Dextrose 50 ml @ 100 mls/hr Q6H IV Last administered on 08/27/16 12:24; Start 08/26/16 at 17:00; Stop 08/27/16 at 14:00; Status DC Collagenase (Santyl) DAILY TOP Last administered on 08/25/16 09:07; Start at 09:00; Stop 08/26/16 at 16:32; Status DC Collagenase (Santyl) 1 dose DAILY TOP Last administered on 09/15/16 09:00; Start 08/27/16 at 09:00; Stop 09/26/16 at 08:59 Dexamethasone (Decadron) 2 mg Q12H IV ; Start 09/02/16 at 17:00; Stop 09/02/16 at 17:00; Status DC Dexamethasone (Decadron) 2 mg Q12H PO Last administered on 09/15/16 20:11; Start 09/02/16 at 21:00; Stop 10/02/16 at 20:59 Dexamethasone (Decadron) 2 mg Q6H IV Last administered on 09/02/16 05:05; Start 08/29/16 at 23:00; Stop 09/02/16 at 07:21; Status DC Dexamethasone (Decadron) 4 mg Q6H IV Last administered on 08/29/16 18:33; Start 08/26/16 at 17:00; Stop 08/29/16 at 22:19; Status DC Dexamethasone (Decadron) 4 mg QID PO Last administered on 08/25/16 21:17; Start 08/23/16 at 09:00; Stop 08/26/16 at 16:32; Status DC Docusate Sodium (Colace) 100 mg BIDP PRN PO CONSTIPATION; Start 09/03/16 at 12: 30; Stop 10/03/16 at 12:29 Fentanyl Citrate (Sublimaze) 25 mcg Q5MP PRN IV MODERATE PAIN (PS 4-7) Last administered on 08/26/16 16:58; Start 08/26/16 at 16:45; Stop 08/26/16 at 17:45 ; Status DC Folic Acid (Folic Acid) 1 mg DAILY PO Last administered on 08/25/16 08:40; Start 08/23/16 at 09:00; Stop 08/26/16 at 16:32; Status DC Folic Acid (Folic Acid) 1 mg DAILY PO Last administered on 09/15/16 09:01; Start 08/27/16 at 09:00; Stop 09/26/16 at 08:59 Heparin Sodium (Porcine) (Heparin) 5,000 units BID SQ Last administered on 09/10 20:34; Start 08/31/16 at 09:00; Stop 09/11/16 at 08:13; Status DC Heparin Sodium (Porcine) (Heparin) 5,000 units Q8H SC Last administered on 08/23 05:45; Start 08/23/16 at 06:00; Stop 08/23/16 at 07:02; Status DC Home Med (Med Rec Complete!) ASDIRECTED XX ; Start 08/22/16 at 21:45; Stop 01/28 at 21:45; Status DC Labetalol HCl (Normodyne, Trandate) 5 mg ASDIRECTED IV ; Start 08/26/16 at 16:45 ; Stop 08/26/16 at 17:45; Status Cancel Lactated Ringer's 1,000 ml @ 100 mls/hr Q10H IV Last administered on 16:42; Start 08/26/16 at 16:45; Stop 08/26/16 at 17:45; Status DC Lorazepam (Ativan) 2 mg ASDIRECTED PRN PO SEE PROTOCOL; Start 08/23/16 at 07:15 ; Stop 08/25/16 at 06:42; Status DC Miscellaneous (Unresolved Clarification Entry) SEE LABEL COMMENTS UNRESOLVED XX ; Start 08/26/16 at 00:01; Stop 08/26/16 at 18:32; Status DC Morphine Sulfate (Morphine Sulfate Inj) 2 mg Q4HP PRN IV PAIN Last administered on 08/28/16 03:47; Start 08/26/16 at 18:00; Stop 09/13/16 at 10:09 ; Status DC Morphine Sulfate (Morphine Sulfate Inj) 2 mg Q5MP PRN IV MODERATE/SEVERE PAIN ( PS 7-10); Start 08/26/16 at 16:45; Stop 08/26/16 at 17:45; Status DC Multivitamins (Theragram-M) 1 tab DAILY PO Last administered on 08/25/16 08:40 ; Start 08/23/16 at 09:00; Stop 08/26/16 at 16:32; Status DC Multivitamins (Theragram-M) 1 tab DAILY PO Last administered on 09/15/16 09:01 ; Start 08/27/16 at 09:00; Stop 09/26/16 at 08:59 Nicotine (Nicoderm Cq 14mg) 1 patch DAILY TD Last administered on 08/25/16 08: 41; Start 08/23/16 at 09:00; Stop 08/26/16 at 16:32; Status DC Nicotine (Nicoderm Cq 14mg) 1 patch DAILY TD Last administered on 09/15/16 09: 01; Start 08/27/16 at 09:00; Stop 09/26/16 at 08:59 Ondansetron HCl (ZOFRAN INJection) 4 mg Q4HP PRN IV NAUSEA OR VOMITING; Start 08/26/16 at 16:45; Stop 08/26/16 at 17:45; Status DC Ondansetron HCl (ZOFRAN INJection) 4 mg Q6HP PRN IV NAUSEA OR VOMITING; Start 08/23/16 at 01:00; Stop 08/26/16 at 16:32; Status DC Potassium Chloride/Dextrose/ Sod Cl 1,000 ml @ 100 mls/hr Q10H IV Last administered on 08/26/16 16:41; Start 08/26/16 at 16:45; Stop 08/27/16 at 01:13 ; Status DC Sodium Chloride (Saline Lock Flush) 2 ml ASDIRECTED PRN IV SEE LABEL COMMENTS; Start 08/23/16 at 09:15; Stop 08/26/16 at 16:32; Status DC Sodium Chloride (Saline Lock Flush) 2 ml SLF IV Last administered on 08/26/16 06:18; Start 08/23/16 at 14:00; Stop 08/26/16 at 16:32; Status DC Thiamine HCl (Thiamine HCl) 100 mg BID PO Last administered on 08/25/16 21:17 ; Start 08/23/16 at 09:00; Stop 08/25/16 at 21:01; Status DC Thiamine HCl (Thiamine HCl) 100 mg DAILY PO Last administered on 09/15/16t 09:01 ; Start 08/27/16 at 09:00; Stop 09/26/16 at 08:59 Allergies Coded Allergies: No Known Allergies (Unverified , 07/20/16) NICHOLAS BELLA MD Sep 16, 2016 15:50
[2016-09-16 20:35] VITALS: BP 132/72
[2016-09-16] MEDS: ACETAMINOPHEN 500 MG TAB PO PRN (20:58)
[2016-09-17 05:50] VITALS: BP 148/83
[2016-09-17] MEDS: AUGMENTIN 875 MG TAB PO SCH (08:49)
[2016-09-17] MEDS: FOLIC ACID 1 MG TAB PO SCH (08:49)
[2016-09-17] MEDS: THIAMINE 100 MG TAB PO SCH (08:49)
[2016-09-17] MEDS: MULTIVITAMINS/MINERALS THERAP 1 TAB PO SCH (08:49)
[2016-09-17] MEDS: SANTYL OINT 30GM TOP SCH (08:50)
[2016-09-17] MEDS: NICOTINE 14 MG/24 HR TRANSDERMAL TD SCH (08:50)
--- NOTE | 2016-09-17 10:50 | IPNPDOC ---
Text Note Date of Service The patient was seen on 09/17/16. NOTE Subjective: Patient is a 56 year old male with a no PMHx who presented to the ER with confusion. He was found to have a brain lesion that was resected by Dr. Flores. Upon further imaging patient was found to have a lung mass that has continued to evaluated at this time. Patient was seen and examined at the bedside. He has no complaints today. Is awaiting the return of psychiatry for evaluation of capacity. Objective: Vitals (See below) General: Lying in bed, no acute distress, comfortable, AAOx3 HEENT: NC, AT CVS: RRR, +S1S2 Lungs: Fair air entry b/l Abdomen: Soft, ND, NT, +BSx4 Extremities: +PPx4, - Edema, - Calf tenderness Assessment and plan: 1. Metastatic non-small cell cancer - Presented with confusion found to be 2/2 to cerebellar mass - Pathology positive for non-small cell cancer - CT chest 09/03: multiple lung nodules - increased in size, spiculated nodule in apex, - PET scan 09/08: hypermetabolic uptake in R upper lobe - No surgery; Family, patient and Dr. Arnold (CT Surgery) have decided to pursue other options - Dr. Jones has evaluated patient on 09/16 and has held that the patient is still incapable of making his own decisions; will re-evaluate today - Primary care established and Oncology follow up established 2. s/p Confusion 2/2 Cerebellar mass with vasogenic edema - CT head 08/30: craniotomy defect unchanged; - Mentation improved - s/p Decadron 3. Memory impairment - Likely baseline - Evaluated by Psychiatry; unable to make own decisions - Dr. Jones to re-evaluate today - Healthcare proxy is son 4. Tobacco abuse - c/w nicotine patch 5. History of alcohol abuse - c/w MVI, Thiamine and Folate 6. Pressure wound at left hip - Wound culture: E. faecalis - c/w Wound care - c/w Augmentin (Day #7 of 7); will discontinue today 7. Thrombocytopenia - no evidence of bleeding - Will follow CBC 8. DVT prophylaxis - c/w SCDs Disposition: - Psychiatry re-evaluation today for next consecutive day - PCP and Oncology follow up established VS,Fishbone, I+O VS, Fishbone, I+O Vital Signs Date Time Temp Pulse Resp B/P (MAP) Pulse Ox O2 Delivery O2 Flow Rate FiO2 09/17/16 05:50 97.6 67 18 148/83 (104) 100 Room Air I&O- Last 24 Hours up to 6 AM 09/17/16 06:00 Intake Total 2120 ml Output Total 1500 ml Balance 620 ml XIOMY ADLER MD Sep 17, 2016 10:50
[2016-09-17 14:00] VITALS: BP 134/67
--- NOTE | 2016-09-17 16:14 | MHIPNPDOC ---
[facility] Progress Note Progress Note DATE OF SERVICE: 09/17/16 HISTORY: Evaluated 56 year old male with history of non small cell cancer, right cerebellar mass ( underwent brain surgery on 08/27/16)who was admitted because he couldn't walk and was brought to the Emergency room. He has acknowledged today that he doesn't remember how or when he came to the Emergency room or hat happened there because he was under the influence of alcohol and severely intoxicated. He reported he doesn't remember anything about his admission to the Medical floor and even before his Surgery. He recalls his brother and both sisters being with him in the room when he woke up from Surgery. he was able to recall this Silverware Assembler doing a consult with the Medical student about 10 days ago and him "being unpolite" to both of us. He said he has seen different Doctors and he has been told that if he accepts surgical treatment, his quality of life will improve but he replies he doesn't want it because "the inevitable is the inevitable" and he wants to live his life fully, not with the limitations that the surgery would carry ( according to what he understands from the procedure, risks and benefits). He says he is willing to have chemotherapy, regardless of the side effects. He says he knows "he has to" allow his sisters and brother help him with appointments, health related issues or even if he feels lonely, because he has stated that one of the major reasons he had for drinking was feeling lonely and bored. He says he is planning on going home and have a coffee, sit in his dining room and clean the fridge. Then, he would start making phone calls for appointments regarding his medical care. He has denied depressive symptoms, suicidal or homicidal ideation, psychotic thoughts, auditory or visual hallucinations at this time. He also denies symptoms of bipolar disorder, generalized anxiety disorder, phobias, OCD. VITAL SIGNS: See below. NEW TEST RESULTS: N/A CURRENT MEDICATIONS: See below. MENTAL STATUS EXAMINATION: Patient is a 56-year old male, who is alert, not wearing his shirt, with good eye contact, cooperative. Speech: Spontaneous, fluid, articulate Language skills are Fair. Thought processes including: Intact, coherent, goal directed. Thought content: About fighting the disease, going back home, cleaning his apartment. he is coherent. Abstract reasoning, and computation: Fair. Description of associations: Not loosening of associations. Description of abnormal or psychotic thoughts: Does not endorse auditory or visual hallucinations, denies thought delusions, denies suicidal or homicidal ideation at this time. Judgment: Improving. Insight: Improving. Orientation: Oriented to place and person. He failed on the month, he said it was 10/19/2016 but yesterday he was better, he said it was 09/18/2016. He knows his sisters names, his name, he knew he was at the 4th floor at [facility]. Recent and remote memory: Immediate recall is intact. Had problems recalling three words after 5 minutes, but he recalled two ( pen and blue), he couldn't recall [place]. He was able to recall events after his brain surgery but not all the events before this took place. Attention span and concentration: Fair Language: Normal. Fund of knowledge: Fair. Mood: "I'm O.K". Affect: Full range, reactive, appropriate, not depressed, not anxious, not irritable at this time. DIAGNOSES: 1. Alcohol use disorder. 2. Impulse control disorder. ASSESSMENT: Patient is not demented, he is not delirious. HE IS CAPABLE OF MAKING HIS OWN DECISIONS,but he will need help and he is aware of that. he said he would allow his siblings help him with certain things, mostly related to his health, because "I have to". He will need his relatives help and supervision. TIME SPENT: 60 minutes. Vital Signs Vital Signs Date Time Temp Pulse Resp B/P (MAP) Pulse Ox O2 Delivery O2 Flow Rate FiO2 09/17/16 14:00 99.3 92 16 134/67 (89) 96 Room Air Current Medications Current Medications Acetaminophen (Tylenol Tab) 500 mg Q4HP PRN PO PAIN Last administered on 20:58; Start 08/26/16 at 17:45; Stop 09/25/16 at 17:44 Acetaminophen (Tylenol Tab) 650 mg Q4HP PRN PO MILD PAIN OR FEVER Last administered on 08/25/16 19:23; Start 08/23/16 at 01:00; Stop 08/26/16 at 16:32 ; Status DC Acetaminophen (Tylenol Tab) 1,000 mg Q4HP PRN PO PAIN; Start 08/26/16 at 16:45 ; Stop 09/25/16 at 16:44; Status Cancel Amoxicillin/ Clavulanate Potassium (Augmentin) 875 mg BID PO Last administered on 09/17/16 08:49; Start 09/11/16 at 09:00; Stop 09/17/16 at 10:34; Status DC Cefazolin Sodium 1 gm/Dextrose 50 ml @ 100 mls/hr Q6H IV Last administered on 08/27/16 12:24; Start 08/26/16 at 17:00; Stop 08/27/16 at 14:00; Status DC Collagenase (Santyl) DAILY TOP Last administered on 08/25/16 09:07; Start at 09:00; Stop 08/26/16 at 16:32; Status DC Collagenase (Santyl) 1 dose DAILY TOP Last administered on 09/17/16 08:50; Start 08/27/16 at 09:00; Stop 09/26/16 at 08:59 Dexamethasone (Decadron) 2 mg Q12H IV ; Start 09/02/16 at 17:00; Stop 09/02/16 at 17:00; Status DC Dexamethasone (Decadron) 2 mg Q12H PO Last administered on 09/17/16 08:49; Start 09/02/16 at 21:00; Stop 10/02/16 at 20:59 Dexamethasone (Decadron) 2 mg Q6H IV Last administered on 09/02/16 05:05; Start 08/29/16 at 23:00; Stop 09/02/16 at 07:21; Status DC Dexamethasone (Decadron) 4 mg Q6H IV Last administered on 08/29/16 18:33; Start 08/26/16 at 17:00; Stop 08/29/16 at 22:19; Status DC Dexamethasone (Decadron) 4 mg QID PO Last administered on 08/25/16 21:17; Start 08/23/16 at 09:00; Stop 08/26/16 at 16:32; Status DC Docusate Sodium (Colace) 100 mg BIDP PRN PO CONSTIPATION; Start 09/03/16 at 12: 30; Stop 10/03/16 at 12:29 Fentanyl Citrate (Sublimaze) 25 mcg Q5MP PRN IV MODERATE PAIN (PS 4-7) Last administered on 08/26/16 16:58; Start 08/26/16 at 16:45; Stop 08/26/16 at 17:45 ; Status DC Folic Acid (Folic Acid) 1 mg DAILY PO Last administered on 08/25/16 08:40; Start 08/23/16 at 09:00; Stop 08/26/16 at 16:32; Status DC Folic Acid (Folic Acid) 1 mg DAILY PO Last administered on 09/17/16 08:49; Start 08/27/16 at 09:00; Stop 09/26/16 at 08:59 Heparin Sodium (Porcine) (Heparin) 5,000 units BID SQ Last administered on 09/10 20:34; Start 08/31/16 at 09:00; Stop 09/11/16 at 08:13; Status DC Heparin Sodium (Porcine) (Heparin) 5,000 units Q8H SC Last administered on 08/23 05:45; Start 08/23/16 at 06:00; Stop 08/23/16 at 07:02; Status DC Home Med (Med Rec Complete!) ASDIRECTED XX ; Start 08/22/16 at 21:45; Stop 01/28 at 21:45; Status DC Labetalol HCl (Normodyne, Trandate) 5 mg ASDIRECTED IV ; Start 08/26/16 at 16:45 ; Stop 08/26/16 at 17:45; Status Cancel Lactated Ringer's 1,000 ml @ 100 mls/hr Q10H IV Last administered on 16:42; Start 08/26/16 at 16:45; Stop 08/26/16 at 17:45; Status DC Lorazepam (Ativan) 2 mg ASDIRECTED PRN PO SEE PROTOCOL; Start 08/23/16 at 07:15 ; Stop 08/25/16 at 06:42; Status DC Miscellaneous (Unresolved Clarification Entry) SEE LABEL COMMENTS UNRESOLVED XX ; Start 08/26/16 at 00:01; Stop 08/26/16 at 18:32; Status DC Morphine Sulfate (Morphine Sulfate Inj) 2 mg Q4HP PRN IV PAIN Last administered on 08/28/16 03:47; Start 08/26/16 at 18:00; Stop 09/13/16 at 10:09 ; Status DC Morphine Sulfate (Morphine Sulfate Inj) 2 mg Q5MP PRN IV MODERATE/SEVERE PAIN ( PS 7-10); Start 08/26/16 at 16:45; Stop 08/26/16 at 17:45; Status DC Multivitamins (Theragram-M) 1 tab DAILY PO Last administered on 08/25/16 08:40 ; Start 08/23/16 at 09:00; Stop 08/26/16 at 16:32; Status DC Multivitamins (Theragram-M) 1 tab DAILY PO Last administered on 09/17/16 08:49 ; Start 08/27/16 at 09:00; Stop 09/26/16 at 08:59 Nicotine (Nicoderm Cq 14mg) 1 patch DAILY TD Last administered on 08/25/16 08: 41; Start 08/23/16 at 09:00; Stop 08/26/16 at 16:32; Status DC Nicotine (Nicoderm Cq 14mg) 1 patch DAILY TD Last administered on 09/17/16 08: 50; Start 08/27/16 at 09:00; Stop 09/26/16 at 08:59 Ondansetron HCl (ZOFRAN INJection) 4 mg Q4HP PRN IV NAUSEA OR VOMITING; Start 08/26/16 at 16:45; Stop 08/26/16 at 17:45; Status DC Ondansetron HCl (ZOFRAN INJection) 4 mg Q6HP PRN IV NAUSEA OR VOMITING; Start 08/23/16 at 01:00; Stop 08/26/16 at 16:32; Status DC Potassium Chloride/Dextrose/ Sod Cl 1,000 ml @ 100 mls/hr Q10H IV Last administered on 08/26/16 16:41; Start 08/26/16 at 16:45; Stop 08/27/16 at 01:13 ; Status DC Sodium Chloride (Saline Lock Flush) 2 ml ASDIRECTED PRN IV SEE LABEL COMMENTS; Start 08/23/16 at 09:15; Stop 08/26/16 at 16:32; Status DC Sodium Chloride (Saline Lock Flush) 2 ml SLF IV Last administered on 08/26/16 06:18; Start 08/23/16 at 14:00; Stop 08/26/16 at 16:32; Status DC Thiamine HCl (Thiamine HCl) 100 mg BID PO Last administered on 08/25/16 21:17 ; Start 08/23/16 at 09:00; Stop 08/25/16 at 21:01; Status DC Thiamine HCl (Thiamine HCl) 100 mg DAILY PO Last administered on 09/17/16 08:49 ; Start 08/27/16 at 09:00; Stop 09/26/16 at 08:59 Allergies Coded Allergies: No Known Allergies (Unverified , 07/20/16) NICHOLAS BELLA MD Sep 17, 2016 16:14
[2016-09-17] MEDS: ACETAMINOPHEN 500 MG TAB PO PRN (20:25)
[2016-09-17 22:00] VITALS: BP 152/76
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
[2016-09-18 06:00] VITALS: BP 159/86
[2016-09-18] MEDS ORDERED: FOLI1TAB4 PO (09:24)
[2016-09-18] MEDS ORDERED: NICO14PA TD (09:24)
[2016-09-18] MEDS ORDERED: SANT250O8 TOP (09:24)
[2016-09-18] MEDS ORDERED: THIA100TA PO (09:24)
[2016-09-18] MEDS ORDERED: DEXA2TA PO (09:24)
[2016-09-18] MEDS: THIAMINE 100 MG TAB PO SCH (09:28)
[2016-09-18] MEDS: MULTIVITAMINS/MINERALS THERAP 1 TAB PO SCH (09:28)
[2016-09-18] MEDS: FOLIC ACID 1 MG TAB PO SCH (09:28)
[2016-09-18] MEDS: NICOTINE 14 MG/24 HR TRANSDERMAL TD SCH (09:29)
[2016-09-18] MEDS: SANTYL OINT 30GM TOP SCH (09:29)
--- NOTE | 2016-09-18 12:09 | DSES ---
DATE OF ADMISSION: 08/23/2016 DATE OF DISCHARGE: 09/18/2016 ATTENDING PHYSICIANS: MD Walker Espitia MD Jie He, MD Nazeel Qureshi, MD DICTATED BY: Joe Blanton MD PRIMARY CARE PHYSICIAN: Has been established prior to discharge. REFERRING PHYSICIAN: None. CONSULTING PHYSICIANS: MD Cj Villarreal, MD Carmine Posada MD James Stillerman, MD FINAL DIAGNOSES: Metastatic non-small cell cancer. Status post acute metabolic encephalopathy. Status post memory impairment. PROCEDURE: On 08/27/2016, the patient had a bilateral suboccipital craniectomy with excision of a large mass with Dr. Flores. HISTORY OF PRESENT ILLNESS: The patient is a 56-year-old male with no past medical history who presented to the emergency room with confusion. He was found to have a brain lesion that was resected by Dr. Flores. Upon further imaging, the patient was found to have a lung mass and that was evaluated throughout his hospital course. The patient had a PET scan and Dr. Arnold was called on consult and upon evaluation the mass was biopsied and consistent with non-small cell lung cancer. After careful discussion with the family and cardiothoracic surgery, it was decided that the family did not want to pursue surgical options and would rather pursue medical management via chemotherapy as an outpatient. Throughout the hospital course, the patient had some confusion and psychiatry was called in for evaluation. Evaluation revealed that the patient lacked capacity to make decisions and it was decided that he was not allowed to make anymore decisions throughout the hospital course and decisions were made by the family members. Upon discharge, the patient was reevaluated by psychiatry who did deem the patient able to make his own decisions. 1. Metastatic non-small cell cancer. Presented with confusion found to be secondary to cerebellar mass. Pathology was positive for non-small cell cancer. CT of the chest on 09/03 showed multiple lung nodules increased in size, spiculated nodules in the apex. PET scan on 09/08 revealed hypermetabolic uptake in the right upper lobe. No surgery was pursued because the family and patient decided against it. Dr. Arnold had weighed and the risks and benefits with the family and they decided to pursue chemotherapy only. Dr. Jones evaluated the patient from psychiatry on 09/16 and has come back again on 09/17 and has deemed the patient able to make his own decisions throughout the hospital course. The patient was cleared for discharged on 09/18/2016. He has an appointment with oncology established for this September 22, with Dr. Tadeo and his primary care has been established. 2. Status post acute metabolic encephalopathy secondary to cerebellar mass with vasogenic edema. CT of the head on 08/30 was craniotomy defect was unchanged and the patient has improved throughout this hospital course. He has been put on high dose Decadron and it had been tapered down. 3. Memory impairment. Likely is at his baseline. Evaluation by psychiatry unable to make his own decisions, but has been able to make his own decisions on 09/17/2016. On 09/18 he is being discharged with close followup with oncology. The patient's son was at the bedside upon discharge and I have discussed the plan with the patient and the brother. The patient's brother will be there to assist the patient for the followup appointment. The patient expresses his understanding that followup appointments are going to be an essential part in his treatment. custodial worker Meliza Haq has helped establish the importance of this with the family. 4. Nicotine abuse. Continue with nicotine patch. 5. History of alcohol abuse. Continue with multivitamin, thiamine and folate. 6. Pressure wound at the left hip. Wound culture was positive for Enterococcus Faecalis. Continue with wound care and dressing changes. He has completed an antibiotic course with Augmentin. 7. Thrombocytopenia. No evidence of bleeding. Will follow CBC. 8. Deep vein thrombosis (DVT) prophylaxis. Continue with sequential compression devices (SCD). DISCHARGE MEDICATIONS: The patient is being discharged home with the following medication list: - Santyl dressings to be applied daily - dexamethasone 2 mg by mouth every 12 hours - folic acid 1 mg by mouth daily - nicotine one patch to be applied transdermally daily - thiamine 100 mg by mouth daily DISCHARGE INSTRUCTIONS: The patient has been advised to followup with his primary care provider and oncology on September 22. The patient has been advised to remain compliant with treatment plan and medications. Return to the emergency room if he experiences any problems. Time spent on discharge 35 minutes.
== END 2016-09-18 10:59 | disposition home or self-care (01) | DRG 21 ==
LOC: EDBD 16:13 → M ED 17:19 → M ED INP 08-23 00:59 → M ICU 08-23 03:19 → M MSPAV 08-29 15:28
PROVIDERS: ADMIT Internal Medicine; ATTEND Internal Medicine
PROC: 009C0ZZ Drainage of Cerebellum, Open Approach (ICD-10-PCS; 2016-08-26)
PROC: 00BC0ZX Excision of Cerebellum, Open Approach, Diagnostic (ICD-10-PCS; principal; 2016-08-26 08:00)
DX: C79.31 Secondary malignant neoplasm of brain (principal); G93.5 Compression of brain; G93.6 Cerebral edema; G93.41 Metabolic encephalopathy; L89.223 Pressure ulcer of left hip, stage 3; D69.6 Thrombocytopenia, unspecified; C34.11 Malignant neoplasm of upper lobe, right bronchus or lung; B95.2 Enterococcus as the cause of diseases classified elsewhere; G91.4 Hydrocephalus in diseases classified elsewhere; F17.210 Nicotine dependence, cigarettes, uncomplicated; F12.10 Cannabis abuse, uncomplicated; Z91.19 Patient's noncompliance with other medical treatment and regimen; Z59.0 Homelessness; Z63.8 Other specified problems related to primary support group; F63.9 Impulse disorder, unspecified; F43.20 Adjustment disorder, unspecified

== ENCOUNTER → 2016-09-08 | Outpatient (CLI) | payer OTHER ==
[~2016-09-08] MED LIST changes: +DEXA2TA PO; +FENT12DI8 TD; +FOLI1TAB4 PO; +MORP1SOL3 PO; +NICO14PA TD; +SANT250O8 TOP; +THIA100TA PO
== END ==
LOC: M PLARAD 09-07 13:10
PROVIDERS: ATTEND Internal Medicine
DX: C34.90 Malignant neoplasm of unspecified part of unspecified bronchus or lung (principal)

== ENCOUNTER → 2016-09-23 | Outpatient (REF) | payer OTHER, MEDICAID ==
[2016-09-23 12:47] LABS: INR 0.97
== END ==
LOC: M LAB REF 12:27
PROVIDERS: ATTEND Internal Medicine Medical Oncology
DX: C34.90 Malignant neoplasm of unspecified part of unspecified bronchus or lung (principal)

== ENCOUNTER 2017-01-09 12:55 | Inpatient (IN) | payer OTHER ==
[~2017-01-09] VITALS: Ht 170.2 cm; Wt 67.2 kg
[~2017-01-09 12:55] MED LIST changes: -FENT12DI8 TD; -MORP1SOL3 PO
[2017-01-09] MEDS ORDERED: FENT12DI8 TD (13:08)
[2017-01-09] MEDS ORDERED: MORP1SOL3 PO (13:08)
[2017-01-09] MEDS ORDERED: NS 1,000 ML IV ONE (13:30)
[2017-01-09 13:49] LABS: BASO % 0.2 % (0.0-1.0); EOS # 0.1 10^3/uL (0.0-0.50); EOS % 0.7 % (0.0-3.0); IMMATURE GRANULOCYTE % 0.5 % (0-0); LYMPH # 0.7 10^3/uL (1.5-4.5); MEAN CORPUSCULAR HEMOGLOBIN 33.2 pg (27.0-33.0); MEAN CORPUSCULAR HGB CONC 35.6 g/dl (32.0-36.5); MEAN CORPUSCULAR VOLUME 93.2 fl (80.0-96.0); MONO # 0.6 10^3/uL (0.0-0.8); MONO % 6.8 % (0.0-5.0); NEUTROPHILS # 7.7 10^3/uL (1.8-7.7); NEUTROPHILS % 83.8 % (36.0-66.0); PLATELET COUNT, AUTOMATED 182 10^3/uL (150-450); WHITE BLOOD COUNT 9.2 10^3/uL (4.0-10.0)
[2017-01-09 13:58] LABS: VENOUS BASE EXCESS -4.4 (-2.0-2.0); VENOUS PARTIAL PRESSURE CO2 35.4 mmHg (38.0-50.0); VENOUS PARTIAL PRESSURE O2 61.5 mmHg (30.0-50.0); VENOUS STANDARD HCO3 20.7 MEQ/L; VENOUS TOTAL CO2 21.1 MEQ/L (24.0-28.0)
--- NOTE | 2017-01-09 14:55 | REP ---
Chest x-ray: Single view. History: Altered mental status. Comparison chest x-ray August 25, 2016. Findings: The patient is rotated slightly to the left. The lungs are symmetrically aerated and clear. Pleural angles are sharp. Heart size is normal. No significant bony abnormality is seen. Impression: No active disease. Signed by Jeyson Riojas MD 01/09/2017 03:31 P
--- NOTE | 2017-01-09 14:57 | REP ---
AP pelvis and left hip: Four views. History: Injury in a fall. Findings: AP view of the pelvis demonstrates an intact bony pelvic ring. No pelvic or sacral fracture is seen. Right hip is unremarkable. There is old post traumatic deformity of the subtrochanteric femoral diaphysis on the left. Femoral heads are smooth and rounded. Hip joint space is preserved. No acute fracture is seen. Impression: Old healed left femur fracture. No acute fracture noted. Signed by Jeyson Riojas MD 01/09/2017 03:31 P
--- NOTE | 2017-01-09 15:03 | REP ---
CT study of the brain without contrast: History: Altered mental status. Comparison CT study August 30, 2016. The patient has a history of poorly differentiated non-small cell lung carcinoma. The patient is status post resection of a cerebellar mass. Preoperative CT is reviewed from August 22, 2016. Preoperative MRI study is from August 22, 2016. CT findings: There is recurrent mass effect and surrounding vasogenic edema in the cerebellum consistent with recurrence of the resected malignant mass. There is compression of the fourth ventricle and displacement of it to the left. The recurrent mass effect measures approximately 3 cm. Surrounding vasogenic edema adds to the mass effect. There are small droplets of postoperative fat density material at the apex of the tentorium. The lateral and third ventricles are dilated as before. The third ventricle measures 15 mm from right to left where as previously on August 30, 2016 it measured 14 mm. The transverse diameter of the frontal horns, added together measures 44 mm today, previously 45 mm. Ventricular system is essentially unchanged above the tentorium. No extra-axial fluid collection is seen. No other intracranial mass lesion is observed. Impression: Findings consistent with recurrent mass in the cerebellum posterior fossa with surrounding vasogenic edema compressing the fourth ventricle. There is ventriculomegaly, but this is unchanged. Signed by Jeyson Riojas MD 01/09/2017 03:32 P
[2017-01-09 15:32] LABS: ALBUMIN 3.1 GM/DL (3.2-5.2); ALKALINE PHOSPHATASE 113 U/L (45-117); ALT/SGPT 44 U/L (12-78); ANION GAP 8 MEQ/L (8-16); AST/SGOT 114 U/L (7-37); BILIRUBIN,DIRECT 0.3 MG/DL (0.0-0.2); BILIRUBIN,TOTAL 0.9 MG/DL (0.2-1.0); BLOOD UREA NITROGEN 13 MG/DL (7-18); CALCIUM LEVEL 8.9 MG/DL (8.5-10.1); CARBON DIOXIDE LEVEL 25 MEQ/L (21-32); CHLORIDE LEVEL 96 MEQ/L (98-107); GLOMERULAR FILTRATION RATE > 60.0 (>56); GLUCOSE, FASTING 109 MG/DL (70-105); SODIUM LEVEL 129 MEQ/L (136-145); TOTAL PROTEIN 6.2 GM/DL (6.4-8.2)
[2017-01-09 15:42] LABS: POTASSIUM SERUM 5.5 MEQ/L (3.5-5.1)
--- NOTE | 2017-01-09 18:21 | ECGEPIP ---
Stationary ECG Study [facility] - ED Test Date: 2017-01-09 Pat Name: JUANIS RODARTE Department: Room: - Gender: M Rock Mason: nataliia : 1960 Requested By: YENNI WEST Order Number: [id number] Reading MD: Katerina Romero Measurements Intervals [place] Rate: 86 P: 74 IL: 126 QRS: 27 QRSD: 77 T: 75 QT: 374 QTc: 447 Interpretive Statements SINUS RHYTHM SHORT [place] INTERVAL POSSIBLE RIGHT ATRIAL ENLARGEMENT POSSIBLE LEFT ATRIAL ENLARGEMENT MINIMAL ST DEPRESSION LOW VOLTAGE IN LIMB LEADS CW 08/25/[address] T WAVE CHANGES Electronically Signed On 01-09-2017 18:21:22 EDT by Katerina Roemro
[2017-01-09] MEDS ORDERED: PROHANCE 279.3MG/ML 15ML VIAL (A9576) As Ordered ONE (18:54)
--- NOTE | 2017-01-09 20:00 | REPUSA ---
MRI of the brain. Clinical history: mass. Technique: Multiecho multiplanar MRI images of the brain were obtained before and after administratio n 15 mL of Prohance intravenous gadolinium contrast. Comparison: 08/22/2016. Findings: There is a large enhancing mass in the posterior fossa, predominant in the right cerebellum, measurin g 3.9 x 4.6 x 3.3 cm, versus 3.2 x 4.0 x 3.3 cm on the prior study. Diffuse vasogenic edema throughou t the right cerebellum and medial aspect of the left cerebellar is noted and is stable. The ventricle s are prominent and stable. T2 hyperintensity is seen in the periventricular regions bilaterally. The re is no extra-axial fluid collection. The midline intracranial structures do not demonstrate any ulices ss abnormalities. The cervical cranial junction is intact. The orbits are unremarkable. The visualize d paranasal sinuses and mastoid air cells are clear. The osseous structures and superficial soft tiss ues are unremarkable. The vascular structures demonstrate appropriate flow voids. Impression: 1. There is slight interval increase in size of the enhancing mass in the right posterior fossa is pr ior study, consistent with neoplasm. 2. Extensive vasogenic edema and mass effect in the right posterior fossa is stable. 3. Mild hydrocephalus is stable. 4. Periventricular edema is unchanged. 5. There is no new evidence of infarct or hemorrhage.
[2017-01-09] MEDS ORDERED: dexameTHASONE 20 MG/5 ML VIAL (J1100) IV ONE (20:15)
[2017-01-09] MEDS ORDERED: ACETAMINOPHEN 325 MG TAB PO ONE (20:15)
[2017-01-09] MEDS ORDERED: LIDOCAINE 2% JELLY 30 ML As Ordered ONE (20:46)
[2017-01-09] MEDS: DOCUSATE SODIUM 100 MG CAP PO SCH (21:00)
[2017-01-09] MEDS ORDERED: ONDANSETRON 4 MG TAB (S0181) PO PRN (21:30)
[2017-01-09] MEDS ORDERED: SOD POLYSTYRENE SULFONATE SUSP 15 GM/60 ML UD PO ONE (21:45)
[2017-01-09 23:30] VITALS: BP 168/80
[2017-01-10] MEDS: NS 1,000 ML IV SCH ×2 (00:07→11:18)
[2017-01-10] MEDS: fentaNYL 12 MCG/HR PATCH TD SCH (00:45)
[2017-01-10] MEDS: FENTANYL REMOVAL DOCUMENTATION MISC XX SCH (00:46)
[2017-01-10 05:20] LABS: IMMATURE GRANULOCYTE % 0.6 % (0-0); LYMPH # 0.4 10^3/uL (1.5-4.5); LYMPH % 7.9 % (24.0-44.0); MEAN CORPUSCULAR HEMOGLOBIN 32.9 pg (27.0-33.0); MEAN CORPUSCULAR HGB CONC 35.6 g/dl (32.0-36.5); MEAN CORPUSCULAR VOLUME 92.4 fl (80.0-96.0); MONO # 0.1 10^3/uL (0.0-0.8); MONO % 1.1 % (0.0-5.0); NEUTROPHILS # 4.8 10^3/uL (1.8-7.7); NEUTROPHILS % 90.4 % (36.0-66.0); PLATELET COUNT, AUTOMATED 165 10^3/uL (150-450); RED CELL DISTRIBUTION WIDTH 14.2 % (11.5-14.5); WHITE BLOOD COUNT 5.3 10^3/uL (4.0-10.0)
[2017-01-10 05:38] LABS: ALBUMIN 2.6 GM/DL (3.2-5.2); ALBUMIN/GLOBULIN RATIO 0.79 (1.00-1.93); ALKALINE PHOSPHATASE 90 U/L (45-117); ALT/SGPT 37 U/L (12-78); ANION GAP 10 MEQ/L (8-16); AST/SGOT 78 U/L (7-37); BILIRUBIN,TOTAL 0.7 MG/DL (0.2-1.0); BLOOD UREA NITROGEN 9 MG/DL (7-18); CALCIUM LEVEL 8.7 MG/DL (8.5-10.1); CARBON DIOXIDE LEVEL 22 MEQ/L (21-32); CHLORIDE LEVEL 101 MEQ/L (98-107); CREATININE FOR GFR 0.31 MG/DL (0.70-1.30); GLOMERULAR FILTRATION RATE > 60.0 (>56); GLUCOSE, FASTING 122 MG/DL (70-105); SODIUM LEVEL 133 MEQ/L (136-145); TOTAL PROTEIN 5.9 GM/DL (6.4-8.2)
[2017-01-10] MEDS: MORPHINE SULFATE ORAL SOLN 10 MG/5 ML UD PO PRN ×2 (06:53→17:13)
[2017-01-10 07:45] VITALS: BP 160/80
[2017-01-10] MEDS: DOCUSATE SODIUM 100 MG CAP PO SCH ×2 (09:40→21:13)
[2017-01-10] MEDS: PANTOPRAZOLE 40MG TAB (PROTONIX) PO SCH (09:40)
[2017-01-10 12:00] VITALS: BP 160/75
[2017-01-10] MEDS ORDERED: SLF 3 ML SYR IV PRN (12:00)
--- NOTE | 2017-01-10 12:14 | IPNPDOC ---
Subjective Date Seen The patient was seen on 01/10/17. Subjective Chief Complaint/HPI Patient seen and examined at the bedside. States that his pain is relatively well controlled, and denies any acute complaints at this time. Objective Physical Examination General Exam: Positive: Alert, Cooperative, No Acute Distress ENT Exam: Positive: Mucous membr. 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 History of tobacco abuse History of alcohol abuse The patient, and his brother have decided to make Mr. Sánchez comfort measures only at this time. The patient states that he has not undergone any chemotherapy following his previous hospitalization, as he did not want any further treatment. A consult to hospice has been placed as well as PFS/case management. At this time, we will continue to provide the patient/family with supportive treatment. VS, [facility]&O[facility] Vital Signs/I&O Vital Signs Date Time Temp Pulse Resp B/P (MAP) Pulse Ox O2 Delivery O2 Flow Rate FiO2 01/10/17 12:00 98.1 86 18 160/75 (103) 93 Room Air I&O- Last 24 Hours up to 6 AM 01/11/17 06:00 Intake Total 840 ml Balance 840 ml Laboratory Data 24H LABS Laboratory Tests 2 01/09/17 13:34: Immature Granulocyte % (Auto) 0.5H, White Blood Count 9.2, Red Blood Count 4.55 , Hemoglobin 15.1, Hematocrit 42.4, Mean Corpuscular Volume 93.2, Mean Corpuscular Hemoglobin 33.2H, Mean Corpuscular Hemoglobin Concent 35.6, Red Cell Distribution Width 14.0, Platelet Count 182, Neutrophils (%) (Auto) 83.8H, Lymphocytes (%) (Auto) 8.0L, Monocytes (%) (Auto) 6.8H, Eosinophils (%) (Auto) 0.7, Basophils (%) (Auto) 0.2, Neutrophils # (Auto) 7.7, Lymphocytes # (Auto) 0.7L, Monocytes # (Auto) 0.6, Eosinophils # (Auto) 0.1, Basophils # (Auto) 0.0, Immature Granulocyte # (Auto) 0.1H, Nucleated Red Blood Cells % (auto) 0.0, Blood Gas Bicarbonate Standard 20.7, Venous Blood pH 7.370, Venous Blood Partial Pressure CO2 35.4L, Venous Blood Partial Pressure O2 61.5H, Venous Blood Total Carbon Dioxide 21.1L, Venous Blood HCO3 20.0L, Venous Blood Oxygen Saturation 90.0H, Venous Blood Base Excess -4.4L 01/09/17 14:42: Anion Gap 8, Glomerular Filtration Rate > 60.0, Calcium Level 8.9, Aspartate Amino Transf (AST/SGOT) 114H, Alanine Aminotransferase (ALT/SGPT) 44, Alkaline Phosphatase 113, Total Bilirubin 0.9, Direct Bilirubin 0.3H, Total Creatine Kinase 2610H, Creatine Kinase MB 10.0H, Creatine Kinase MB Relative Index 0.38, Troponin I 0.03, Total Protein 6.2L, Albumin 3.1L, Albumin/Globulin Ratio 1.00, Thyroid Stimulating Hormone (TSH) 0.522, Salicylates Level 3.1L, Acetaminophen Level < 2.0L, Ethyl Alcohol Level < 0.003 01/10/17 04:45: Immature Granulocyte % (Auto) 0.6H, White Blood Count 5.3, Red Blood Count 4.35 , Hemoglobin 14.3, Hematocrit 40.2L, Mean Corpuscular Volume 92.4, Mean Corpuscular Hemoglobin 32.9, Mean Corpuscular Hemoglobin Concent 35.6, Red Cell Distribution Width 14.2, Platelet Count 165, Neutrophils (%) (Auto) 90.4H, Lymphocytes (%) (Auto) 7.9L, Monocytes (%) (Auto) 1.1, Eosinophils (%) (Auto) 0.0, Basophils (%) (Auto) 0.0, Neutrophils # (Auto) 4.8, Lymphocytes # (Auto) 0.4L, Monocytes # (Auto) 0.1, Eosinophils # (Auto) 0.0, Basophils # (Auto) 0.0, Immature Granulocyte # (Auto) 0.0, Nucleated Red Blood Cells % (auto) 0.0, Anion Gap 10, Glomerular Filtration Rate > 60.0, Calcium Level 8.7, Aspartate Amino Transf (AST/SGOT) 78H, Alanine Aminotransferase (ALT/SGPT) 37, Alkaline Phosphatase 90, Total Bilirubin 0.7, Total Creatine Kinase 756H, Total Protein 5.9L, Albumin 2.6L, Albumin/Globulin Ratio 0.79L, Blood Urea Nitrogen 9, Creatinine 0.31L, Sodium Level 133L, Potassium Level 4.0#, Chloride Level 101, Carbon Dioxide Level 22 CBC/BMP Laboratory Tests 01/09/17 13:34 Red Blood Count 4.55, Mean Corpuscular Volume 93.2, Mean Corpuscular Hemoglobin 33.2 H, Mean Corpuscular Hemoglobin Concent 35.6, Red Cell Distribution Width 14.0, Neutrophils (%) (Auto) 83.8 H, Lymphocytes (%) (Auto) 8.0 L, Monocytes (% ) (Auto) 6.8 H, Eosinophils (%) (Auto) 0.7, Basophils (%) (Auto) 0.2, Neutrophils # (Auto) 7.7, Lymphocytes # (Auto) 0.7 L, Monocytes # (Auto) 0.6, Eosinophils # (Auto) 0.1, Basophils # (Auto) 0.0 01/09/17 14:42 01/10/17 04:45 Red Blood Count 4.35, Mean Corpuscular Volume 92.4, Mean Corpuscular Hemoglobin 32.9, Mean Corpuscular Hemoglobin Concent 35.6, Red Cell Distribution Width 14.2 , Neutrophils (%) (Auto) 90.4 H, Lymphocytes (%) (Auto) 7.9 L, Monocytes (%) ( Auto) 1.1, Eosinophils (%) (Auto) 0.0, Basophils (%) (Auto) 0.0, Neutrophils # ( Auto) 4.8, Lymphocytes # (Auto) 0.4 L, Monocytes # (Auto) 0.1, Eosinophils # ( Auto) 0.0, Basophils # (Auto) 0.0, Calcium Level 8.7, Aspartate Amino Transf ( AST/SGOT) 78 H, Alanine Aminotransferase (ALT/SGPT) 37, Total Creatine Kinase 756 H, Alkaline Phosphatase 90, Total Bilirubin 0.7, Total Protein 5.9 L, Albumin 2.6 L JENNIE MCFARLANE MD Jan 10, 2017 12:14
[2017-01-10] MEDS: SLF 3 ML SYR IV SCH ×2 (14:00→21:13)
[2017-01-10 16:00] VITALS: BP 125/66
[2017-01-10 18:00] VITALS: BP 130/80
[2017-01-10] MEDS: MORPHINE 2 MG/ML 1ML SYRINGE IV PRN (21:13)
[2017-01-10 22:00] VITALS: BP 170/80
[2017-01-11] MEDS: NS 1,000 ML IV SCH (00:37)
[2017-01-11] MEDS: MORPHINE SULFATE ORAL SOLN 10 MG/5 ML UD PO PRN (06:07)
[2017-01-11] MEDS: SLF 3 ML SYR IV SCH ×3 (06:07→21:01)
[2017-01-11] MEDS: DOCUSATE SODIUM 100 MG CAP PO SCH ×2 (08:15→20:34)
[2017-01-11] MEDS: PANTOPRAZOLE 40MG TAB (PROTONIX) PO SCH (08:15)
[2017-01-11] MEDS: MORPHINE 2 MG/ML 1ML SYRINGE IV PRN ×2 (08:16→08:26)
--- NOTE | 2017-01-11 10:23 | IPNPDOC ---
Subjective Date Seen The patient was seen on 01/11/17. Subjective Chief Complaint/HPI Patient seen and examined at bedside. States that his pain is relatively well controlled, but does complain of headache this morning. Denies any acute overnight events. Objective Physical Examination General Exam: Positive: Alert, Cooperative, No Acute Distress ENT Exam: Positive: Mucous membr. 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 Rhabdomyolysis Brain compression on the fourth ventricle Hyponatremia History of tobacco abuse History of alcohol abuse The patient, and his brother have decided to make Mr. Sánchez comfort measures only at this time. The patient states that he has not undergone any chemotherapy following his previous hospitalization, as he did not want any further treatment. A consult to hospice has been placed as well as PFS/case management. At this time, we will continue to provide the patient/family with supportive treatment. VS, I&O, 24H, Fishbone Vital Signs/I&O Vital Signs Date Time Temp Pulse Resp B/P (MAP) Pulse Ox O2 Delivery O2 Flow Rate FiO2 01/11/17 09:48 Room Air 01/11/17 08:26 18 01/10/17 22:00 98.2 75 170/80 (110) 95 I&O- Last 24 Hours up to 6 AM 01/12/17 06:00 Intake Total 260 ml Balance 260 ml JENNIE MCFARLANE MD Jan 11, 2017 10:23
[2017-01-11] MEDS ORDERED: LORazepam 2 MG/ML VIAL (J2060) IV PRN (10:30)
[2017-01-11] MEDS: MORPHINE 10MG/0.5ML ORAL CONCENTRATE SOLUTION U/D SL PRN ×2 (11:32→14:46)
--- NOTE | 2017-01-11 14:46 | HPE ---
DATE OF ADMISSION: 01/09/2017 CHIEF COMPLAINT: Brain mass, unresponsiveness. This is a 56-year-old male with a history of metastatic cancer with a lung mass as well as brain mass. The patient as well as his brother, who is his health care proxy, have decided that the family did not want to pursue any surgical options. They did not want to pursue any radiation or chemotherapy. He has been at home. He was in the [facility] approximately 10 days to 2 weeks ago with hyponatremia, rallied back and did go home. Was today though, found unresponsive by his brother when he went over there after the patient had not been answering the phone. Patient was brought to the emergency room. Upon arrival, blood pressure was 138/57, pulse 89, respirations 18, temperature was 96.5. Oxygen saturation was 96% on room air. Laboratory studies were done. White count was 9.2, hemoglobin 15.8, hematocrit 42.4, platelets were 182. Sodium was low at 125, potassium 5.5, chloride 96. BUN was 13, creatinine 0.6. AST 114. Total CPK 2610. Toxicology was negative. ABG showed a pH of 7.37, pCO2 of 35, pO2 of 60, oxygen saturation 90%. Head CT showed consistent with recurrent mass of the cerebellum posterior fossa with surrounding vasogenic edema compressing the fourth ventricle. Ventriculomegaly but unchanged. Chest x-ray showed no active disease. He had a pressure sore from lying on his right hip, actually showed old healed left femur fracture, no acute fracture note. Brain MRI showed a slight interval increase in the size of the enhancing mass in the right posterior fossa. Extensive vasogenic edema and mass effect in the right posterior fossa stable. No evidence of any new infarct or hemorrhage. Patient was awake. He told Emergency Medical Services (EMS) he was on the floor most of the night as his body just gave out on him and he was too weak to get up. He has a skin tear on the left outer thigh and a blister to the lateral thigh. His complaint was only of a headache. Discussed with the brother and the patient he had at one time at [place], 2 weeks ago, was going to pursue hospice but he improved and they felt that he could go home. The patient today states that he continues to want to be a DO NOT RESUSCITATE in the event that his heart stops or he stops breathing. He did want to have intravenous (IV) fluid or treat the sodium and potassium like they did at [facility] as it made him feel better. I stated that we could that. He does not want any other further treatments other than pain management. His brother is in agreement. Patient will be admitted. IV hydration, electrolyte balance and correction, and otherwise, comfort measures and pain management. Patient will be admitted to the hospitalist, Dr. Obrien. ALLERGIES: NO KNOWN ALLERGIES. He lives alone. His brother lives nearby. He continues to smoke approximately one pack of cigarettes per day. Ethyl alcohol (EtOH): He used to drink. He no longer drinks alcohol. Recreational drugs: He has occasionally smoked marijuana. PAST MEDICAL HISTORY: Lung mass, brain mass. He has had hyponatremia recently. PAST SURGICAL HISTORY: Leg surgery. FAMILY HISTORY: Noncontributory. REVIEW OF SYSTEMS: Complains of headache. No blurred or double vision. No fever. He has had chills. No tinnitus. No hoarseness. No difficulty swallowing. No lightheadedness. No vertigo. Cardiovascular: No complaints of chest pain, shortness of breath, palpitations or edema. Respiratory: He states he has a dry cough. No mucus production. No hemoptysis. No orthopnea. No wheeze. Gastrointestinal (GI): No nausea, vomiting or diarrhea. No hematochezia. No melena. No complaints of abdominal pain. Genitourinary (): No hematuria, dysuria or frequency. Musculoskeletal: No joint redness or swelling. Endocrine: No polyuria, polydipsia or polyphagia. Hematological: No history of anemia. Neurological: Brain mass. Psychological: No suicidal ideations. PHYSICAL EXAMINATION: 56-year-old, cooperative male, in no acute distress. Height 67 inches. Weight 60.7 kg. Body mass index (BMI) 21.0. Blood pressure 138/57. Pulse 89. Respirations 18. Temperature 96.5. Oxygen saturation 96% on room air. EKG shows sinus rhythm. Patient is currently alert and oriented times three. Pupils equal and reactive to light. Extraocular movements (EOMs) intact. Pharynx, tongue and gums pink and moist. Tongue is midline. Neck supple, without lymphadenopathy. No thyromegaly. No goiter. Chest clear to auscultation, without wheeze or retraction. Heart is regular. Abdomen benign. Bowel sounds positive. /Rectal: Not done. Extremities: Left lower back abrasion, left hip abrasion, small blister anterior left leg. Moving all extremities spontaneous with purpose. Peripheral pulses equal and palpable bilaterally. IMPRESSION/PLAN: 1. Increasing brain mass, lung mass. Patient wishes no chemotherapy, radiation or further treatment. 2. Hyponatremia. 3. Hyperkalemia. Patient will accept IV fluids and electrolyte correction. 4. Pain management. We will continue his outpatient liquid morphine and fentanyl. 5. Hospice consult. Patient will be admitted to the service of Dr. Obrien.
[2017-01-12] MEDS: SLF 3 ML SYR IV SCH ×3 (05:58→21:23)
[2017-01-12] MEDS: FENTANYL REMOVAL DOCUMENTATION MISC XX SCH (08:03)
[2017-01-12] MEDS: fentaNYL 12 MCG/HR PATCH TD SCH (08:03)
[2017-01-12] MEDS: PANTOPRAZOLE 40MG TAB (PROTONIX) PO SCH (08:04)
[2017-01-12] MEDS: DOCUSATE SODIUM 100 MG CAP PO SCH ×2 (08:04→21:00)
[2017-01-12] MEDS: MORPHINE 10MG/0.5ML ORAL CONCENTRATE SOLUTION U/D SL PRN ×4 (08:04→20:50)
--- NOTE | 2017-01-12 11:28 | IPNPDOC ---
Subjective Date Seen The patient was seen on 01/12/17. Subjective Chief Complaint/HPI Patient seen and examined at the bedside. States his pain is relatively well controlled this morning and that he is comfortable. Denies any other acute complaints or overnight events at this time. Objective Physical Examination General Exam: Positive: No Acute Distress ENT Exam: Positive: Mucous membr. 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 Rhabdomyolysis Brain compression of the fourth ventricle Hyponatremia History of tobacco abuse History of alcohol abuse The patient, and his brother have decided to make Mr. Sánchez comfort measures only at this time. The patient states that he has not undergone any chemotherapy following his previous hospitalization, as he did not want any further treatment. A consult to hospice has been placed as well as PFS/case management. At this time, we will continue to provide the patient/family with supportive treatment. VS, I&O, 24H, Fishbone Vital Signs/I&O Vital Signs Date Time Temp Pulse Resp B/P (MAP) Pulse Ox O2 Delivery O2 Flow Rate FiO2 01/12/17 11:06 Room Air 01/11/17 15:16 18 01/10/17 22:00 98.2 75 170/80 (110) 95 I&O- Last 24 Hours up to 6 AM 01/13/17 06:00 Intake Total 260 ml Output Total 0 ml Balance 260 ml JENNIE MCFARLANE MD Jan 12, 2017 11:27
[2017-01-13] MEDS: SLF 3 ML SYR IV SCH ×3 (03:43→22:28)
[2017-01-13] MEDS: MORPHINE 10MG/0.5ML ORAL CONCENTRATE SOLUTION U/D SL PRN ×5 (04:29→20:09)
[2017-01-13] MEDS: PANTOPRAZOLE 40MG TAB (PROTONIX) PO SCH (10:38)
[2017-01-13] MEDS: DOCUSATE SODIUM 100 MG CAP PO SCH ×2 (10:38→21:00)
--- NOTE | 2017-01-13 12:26 | IPNPDOC ---
Subjective Date Seen The patient was seen on 01/13/17. Subjective Chief Complaint/HPI Patient seen and examined at the bedside. Appears more lethargic this morning, but does not his head yes that his pain is relatively well controlled. Objective Physical Examination General Exam: Positive: No Acute Distress ENT Exam: Positive: Mucous membr. moist/pink Neck Exam: Negative: JVD Chest Exam: Positive: Clear to auscultation, Normal air movement Heart Exam: Positive: Rate Normal, Normal S1, Normal S2 Abdomen Exam: Positive: Soft Extremity Exam: Negative: Tenderness Assessment /Plan Plan/VTE VTE Prophylaxis Ordered?: No Plan Metastatic Poorly Differentiated Non-Small Cell Carcinoma s/p Craniectomy with excision of large mass from the Cerebellum on 08/26/[address] Head/MRI Brain on 01/09 revealed findings consistent with recurrent mass in the cerebellum posterior fossa with surrounding vasogenic edema pressing the fourth ventricle, and slight interval increase in size of the enhancing mass in the right posterior fossa with extensive vasogenic edema and mass effect in the right upper sternal fossa respectively in each imaging study. Rhabdomyolysis Brain compression of the fourth ventricle Hyponatremia History of tobacco abuse History of alcohol abuse The patient, and his brother have decided to make Mr. Sánchez comfort measures only at this time. The patient states that he has not undergone any chemotherapy following his previous hospitalization, as he did not want any further treatment. A consult to hospice has been placed as well as PFS/case management. At this time, we will continue to provide the patient/family with supportive treatment. VS, I&O, 24H, Fishbone Vital Signs/I&O Vital Signs Date Time Temp Pulse Resp B/P (MAP) Pulse Ox O2 Delivery O2 Flow Rate FiO2 01/13/17 06:58 18 01/12/17 21:20 Room Air 01/10/17 22:00 98.2 75 170/80 (110) 95 JENNIE MCFARLANE MD Jan 13, 2017 12:26
[2017-01-13] MEDS: SCOPOLAMINE 1.5 MG TRANSDERMAL TD PRN (18:47)
[2017-01-14] MEDS: SLF 3 ML SYR IV SCH ×3 (05:47→20:59)
[2017-01-14] MEDS: DOCUSATE SODIUM 100 MG CAP PO SCH ×2 (10:01→20:58)
[2017-01-14] MEDS: PANTOPRAZOLE 40MG TAB (PROTONIX) PO SCH (10:01)
--- NOTE | 2017-01-14 10:39 | IPNPDOC ---
Subjective Date Seen The patient was seen on 01/14/17. Subjective Chief Complaint/HPI Patient seen and examined at the bedside. Appears more somnolent this morning, as he had just received pain medications. No overnight events noted as per house staff. Objective Physical Examination General Exam: Positive: No Acute Distress ENT Exam: Positive: Mucous membr. moist/pink Neck Exam: Negative: JVD Chest Exam: Positive: Clear to auscultation, Normal air movement Heart Exam: Positive: Rate Normal, Normal S1, Normal S2 Abdomen Exam: Positive: Soft Extremity Exam: Negative: Tenderness Assessment /Plan Plan/VTE VTE Prophylaxis Ordered?: No Plan Metastatic Poorly Differentiated Non-Small Cell Carcinoma s/p Craniectomy with excision of large mass from the Cerebellum on 08/26/[address] Head/MRI Brain on 01/09 revealed findings consistent with recurrent mass in the cerebellum posterior fossa with surrounding vasogenic edema pressing the fourth ventricle, and slight interval increase in size of the enhancing mass in the right posterior fossa with extensive vasogenic edema and mass effect in the right upper sternal fossa respectively in each imaging study. Rhabdomyolysis Brain compression of the fourth ventricle Hyponatremia History of tobacco abuse History of alcohol abuse The patient, and his brother have decided to make Mr. Sánchez comfort measures only at this time. The patient states that he has not undergone any chemotherapy following his previous hospitalization, as he did not want any further treatment. A consult to hospice has been placed as well as PFS/case management. At this time, we will continue to provide the patient/family with supportive treatment. VS, I&O, 24H, Fishbone Vital Signs/I&O Vital Signs Date Time Temp Pulse Resp B/P (MAP) Pulse Ox O2 Delivery O2 Flow Rate FiO2 01/13/17 22:33 Room Air 01/13/17 06:58 18 01/10/17 22:00 98.2 75 170/80 (110) 95 JENNIE MCFARLANE MD Jan 14, 2017 10:39
[2017-01-14] MEDS: MORPHINE 10MG/0.5ML ORAL CONCENTRATE SOLUTION U/D SL PRN ×3 (12:10→20:58)
[2017-01-15] MEDS: MORPHINE 10MG/0.5ML ORAL CONCENTRATE SOLUTION U/D SL PRN (04:21)
[2017-01-15] MEDS: SLF 3 ML SYR IV SCH ×3 (05:32→22:17)
[2017-01-15] MEDS: MORPHINE 2 MG/ML 1ML SYRINGE IV PRN ×3 (05:54→13:09)
[2017-01-15] MEDS: PANTOPRAZOLE 40MG TAB (PROTONIX) PO SCH (07:59)
[2017-01-15] MEDS: fentaNYL 12 MCG/HR PATCH TD SCH ×2 (08:00→09:01)
[2017-01-15] MEDS: DOCUSATE SODIUM 100 MG CAP PO SCH ×2 (09:00→20:17)
--- NOTE | 2017-01-15 14:33 | IPNPDOC ---
Subjective Date Seen The patient was seen on 01/15/17. Subjective Chief Complaint/HPI Patient seen and examined at the bedside. Remains somnolent after receiving narcotic pain medications. Does not appear to be in any distress. No overnight events noted as per nursing staff. Objective Physical Examination General Exam: Positive: No Acute Distress ENT Exam: Positive: Mucous membr. moist/pink Neck Exam: Negative: JVD Chest Exam: Positive: Clear to auscultation, Normal air movement Heart Exam: Positive: Rate Normal, Normal S1, Normal S2 Abdomen Exam: Positive: Soft Extremity Exam: Negative: Tenderness Assessment /Plan Plan/VTE VTE Prophylaxis Ordered?: No Plan Metastatic Poorly Differentiated Non-Small Cell Carcinoma s/p Craniectomy with excision of large mass from the Cerebellum on 08/26/[address] Head/MRI Brain on 01/09 revealed findings consistent with recurrent mass in the cerebellum posterior fossa with surrounding vasogenic edema pressing the fourth ventricle, and slight interval increase in size of the enhancing mass in the right posterior fossa with extensive vasogenic edema and mass effect in the right upper sternal fossa respectively in each imaging study. Rhabdomyolysis Brain compression of the fourth ventricle Hyponatremia History of tobacco abuse History of alcohol abuse The patient, and his brother have decided to make Mr. Sánchez comfort measures only at this time. The patient states that he has not undergone any chemotherapy following his previous hospitalization, as he did not want any further treatment. A consult to hospice has been placed as well as PFS/case management. At this time, we will continue to provide the patient/family with supportive treatment. VS, I&O, 24H, Fishbone Vital Signs/I&O Vital Signs Date Time Temp Pulse Resp B/P (MAP) Pulse Ox O2 Delivery O2 Flow Rate FiO2 01/15/17 09:00 Room Air 01/13/17 06:58 18 01/10/17 22:00 98.2 75 170/80 (110) 95 I&O- Last 24 Hours up to 6 AM 01/16/17 06:00 Intake Total 30 ml Output Total 0 ml Balance 30 ml JENNIE MCFARLANE MD Jan 15, 2017 14:33
[2017-01-15] MEDS: FENTANYL REMOVAL DOCUMENTATION MISC XX SCH (18:43)
[2017-01-16] MEDS: MORPHINE 10MG/0.5ML ORAL CONCENTRATE SOLUTION U/D SL PRN ×5 (01:51→22:19)
[2017-01-16] MEDS: SLF 3 ML SYR IV SCH ×3 (06:22→21:26)
[2017-01-16] MEDS: PANTOPRAZOLE 40MG TAB (PROTONIX) PO SCH (07:41)
[2017-01-16] MEDS: DOCUSATE SODIUM 100 MG CAP PO SCH ×2 (07:41→21:15)
--- NOTE | 2017-01-16 12:00 | IPNPDOC ---
Subjective Date Seen The patient was seen on 01/16/17. Subjective Chief Complaint/HPI Patient seen and examined at the bedside. Did awake to tell me that his pain is relatively controlled this morning, denies any acute complaints aside from headache at this time. Objective Physical Examination General Exam: Positive: No Acute Distress ENT Exam: Positive: Mucous membr. moist/pink Neck Exam: Negative: JVD Chest Exam: Positive: Clear to auscultation, Normal air movement Heart Exam: Positive: Rate Normal, Normal S1, Normal S2 Abdomen Exam: Positive: Soft Extremity Exam: Negative: Tenderness Assessment /Plan Plan/VTE VTE Prophylaxis Ordered?: No Plan Metastatic Poorly Differentiated Non-Small Cell Carcinoma s/p Craniectomy with excision of large mass from the Cerebellum on 08/26/[address] Head/MRI Brain on 01/09 revealed findings consistent with recurrent mass in the cerebellum posterior fossa with surrounding vasogenic edema pressing the fourth ventricle, and slight interval increase in size of the enhancing mass in the right posterior fossa with extensive vasogenic edema and mass effect in the right upper sternal fossa respectively in each imaging study. Rhabdomyolysis Brain compression of the fourth ventricle Hyponatremia History of tobacco abuse History of alcohol abuse The patient, and his brother have decided to make Mr. Sánchez comfort measures only at this time. The patient states that he has not undergone any chemotherapy following his previous hospitalization, as he did not want any further treatment. A consult to hospice has been placed as well as PFS/case management. At this time, we will continue to provide the patient/family with supportive treatment. VS, I&O, 24H, Fishbone Vital Signs/I&O Vital Signs Date Time Temp Pulse Resp B/P (MAP) Pulse Ox O2 Delivery O2 Flow Rate FiO2 01/16/17 09:56 Room Air 01/16/17 08:00 18 01/10/17 22:00 98.2 75 170/80 (110) 95 I&O- Last 24 Hours up to 6 AM 01/17/17 06:00 Intake Total 0 ml Output Total 0 ml Balance 0 ml JENNIE MCFARLANE MD Jan 16, 2017 12:00
[2017-01-16] MEDS: ACETAMINOPHEN TAB 650MG DOSE (2X325MG) PO PRN (21:16)
[2017-01-17] MEDS: MORPHINE 10MG/0.5ML ORAL CONCENTRATE SOLUTION U/D SL PRN ×5 (05:25→18:34)
[2017-01-17] MEDS: SLF 3 ML SYR IV SCH ×3 (05:26→20:23)
[2017-01-17] MEDS: DOCUSATE SODIUM 100 MG CAP PO SCH ×2 (08:45→20:27)
[2017-01-17] MEDS: PANTOPRAZOLE 40MG TAB (PROTONIX) PO SCH (08:45)
--- NOTE | 2017-01-17 11:00 | IPNPDOC ---
Subjective Date Seen The patient was seen on 01/17/17. Subjective Chief Complaint/HPI Patient seen and examined at the bedside. Notably somnolent following administration of IV narcotic medication. Objective Physical Examination General Exam: Positive: No Acute Distress ENT Exam: Positive: Mucous membr. moist/pink Neck Exam: Negative: JVD Chest Exam: Positive: Clear to auscultation, Normal air movement Heart Exam: Positive: Rate Normal, Normal S1, Normal S2 Abdomen Exam: Positive: Soft Extremity Exam: Negative: Tenderness Assessment /Plan Plan/VTE VTE Prophylaxis Ordered?: No Plan Metastatic Poorly Differentiated Non-Small Cell Carcinoma s/p Craniectomy with excision of large mass from the Cerebellum on 08/26/[address] Head/MRI Brain on 01/09 revealed findings consistent with recurrent mass in the cerebellum posterior fossa with surrounding vasogenic edema pressing the fourth ventricle, and slight interval increase in size of the enhancing mass in the right posterior fossa with extensive vasogenic edema and mass effect in the right upper sternal fossa respectively in each imaging study. Rhabdomyolysis Brain compression of the fourth ventricle Hyponatremia History of tobacco abuse History of alcohol abuse The patient, and his brother have decided to make Mr. Sánchez comfort measures only at this time. The patient states that he has not undergone any chemotherapy following his previous hospitalization, as he did not want any further treatment. A consult to hospice has been placed as well as PFS/case management. At this time, we will continue to provide the patient/family with supportive treatment. We will transition the patient to ALC status. VS, I&O, 24H, Fishbone Vital Signs/I&O Vital Signs Date Time Temp Pulse Resp B/P (MAP) Pulse Ox O2 Delivery O2 Flow Rate FiO2 01/17/17 10:23 18 01/17/17 08:58 Room Air I&O- Last 24 Hours up to 6 AM 01/18/17 06:00 Intake Total 0 ml Output Total 0 ml Balance 0 ml JENNIE MCFARLANE MD Jan 17, 2017 11:00
[2017-01-18] MEDS: MORPHINE 10MG/0.5ML ORAL CONCENTRATE SOLUTION U/D SL PRN ×4 (00:48→23:07)
[2017-01-18] MEDS: SLF 3 ML SYR IV SCH ×3 (05:06→21:59)
[2017-01-18] MEDS: SCOPOLAMINE 1.5 MG TRANSDERMAL TD PRN (07:27)
[2017-01-18] MEDS: DOCUSATE SODIUM 100 MG CAP PO SCH ×2 (09:47→21:00)
[2017-01-18] MEDS: PANTOPRAZOLE 40MG TAB (PROTONIX) PO SCH (09:47)
[2017-01-18] MEDS: fentaNYL 50 MCG/HR PATCH TOP SCH (10:01)
[2017-01-18] MEDS: FENTANYL REMOVAL DOCUMENTATION MISC XX SCH (10:02)
[2017-01-19] MEDS: SLF 3 ML SYR IV SCH ×2 (04:54→08:15)
[2017-01-19] MEDS: MORPHINE 10MG/0.5ML ORAL CONCENTRATE SOLUTION U/D SL PRN ×4 (05:26→20:21)
[2017-01-19] MEDS: DOCUSATE SODIUM 100 MG CAP PO SCH ×2 (08:15→20:09)
[2017-01-19] MEDS: PANTOPRAZOLE 40MG TAB (PROTONIX) PO SCH (08:15)
[2017-01-20] MEDS: MORPHINE 10MG/0.5ML ORAL CONCENTRATE SOLUTION U/D SL PRN ×2 (09:46→16:26)
[2017-01-20] MEDS: DOCUSATE SODIUM 100 MG CAP PO SCH ×2 (09:46→20:05)
[2017-01-20] MEDS: PANTOPRAZOLE 40MG TAB (PROTONIX) PO SCH (09:46)
[2017-01-21] MEDS: MORPHINE 10MG/0.5ML ORAL CONCENTRATE SOLUTION U/D SL PRN ×3 (04:29→21:00)
[2017-01-21] MEDS: PANTOPRAZOLE 40MG TAB (PROTONIX) PO SCH (11:03)
[2017-01-21] MEDS: DOCUSATE SODIUM 100 MG CAP PO SCH ×2 (11:03→20:54)
[2017-01-21] MEDS: FENTANYL REMOVAL DOCUMENTATION MISC XX SCH (11:06)
[2017-01-21] MEDS: fentaNYL 50 MCG/HR PATCH TOP SCH (11:08)
[2017-01-21] MEDS: ACETAMINOPHEN TAB 650MG DOSE (2X325MG) PO PRN ×2 (12:30→18:06)
[2017-01-22] MEDS: DOCUSATE SODIUM 100 MG CAP PO SCH ×2 (09:00→22:20)
[2017-01-22] MEDS: PANTOPRAZOLE 40MG TAB (PROTONIX) PO SCH (09:23)
[2017-01-22] MEDS: MORPHINE 10MG/0.5ML ORAL CONCENTRATE SOLUTION U/D SL PRN ×2 (09:24→15:41)
[2017-01-22] MEDS: SCOPOLAMINE 1.5 MG TRANSDERMAL TD PRN (15:42)
[2017-01-22] MEDS: ACETAMINOPHEN TAB 650MG DOSE (2X325MG) PO PRN (22:20)
[2017-01-23] MEDS: MORPHINE 10MG/0.5ML ORAL CONCENTRATE SOLUTION U/D SL PRN ×2 (04:12→13:56)
[2017-01-23] MEDS: DOCUSATE SODIUM 100 MG CAP PO SCH ×2 (09:16→21:47)
[2017-01-23] MEDS: PANTOPRAZOLE 40MG TAB (PROTONIX) PO SCH (09:16)
[2017-01-23] MEDS: ACETAMINOPHEN TAB 650MG DOSE (2X325MG) PO PRN (09:16)
--- NOTE | 2017-01-23 10:16 | IPNPDOC ---
Subjective Date Seen The patient was seen on 01/22/17. Subjective Chief Complaint/HPI The patient is a 56-year-old male admitted with a reason for visit of Mass, Brain & Rhabdomyolysis. Events since last encounter Patient is seen and examined today. Still complain about pain. No bowel movement in the last few days. Barbour in place Objective Physical Examination General Exam: Positive: No Acute Distress ENT Exam: Positive: Mucous membr. moist/pink Neck Exam: Negative: JVD Chest Exam: Positive: Clear to auscultation, Normal air movement Heart Exam: Positive: Rate Normal, Normal S1, Normal S2 Abdomen Exam: Positive: Soft Extremity Exam: Negative: Tenderness Assessment /Plan Plan/VTE VTE Prophylaxis Ordered?: No Plan Acessment 1. Poorly Differentiated Non-Small Cell Carcinoma of lung with brain metastasis. 2. Rhabdomyolysis 3. Brain compression of the fourth ventricle 4. Hyponatremia 5. History of tobacco abuse 6. History of alcohol abuse 7. 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 Continue current hospice medications. Patient is waiting for placement. VS, I&O, 24H, Fishbone Vital Signs/I&O Vital Signs Date Time Temp Pulse Resp B/P (MAP) Pulse Ox O2 Delivery O2 Flow Rate FiO2 01/22/17 10:00 Room Air 01/21/17 21:30 18 I&O- Last 24 Hours up to 6 AM 01/23/17 06:00 Intake Total 420 ml Balance 420 ml WILNER ORTEGA DO Jan 22, 2017 16:40
[2017-01-24] MEDS: MORPHINE 10MG/0.5ML ORAL CONCENTRATE SOLUTION U/D SL PRN ×3 (03:27→20:03)
[2017-01-24] MEDS: DOCUSATE SODIUM 100 MG CAP PO SCH ×2 (08:42→20:27)
[2017-01-24] MEDS: PANTOPRAZOLE 40MG TAB (PROTONIX) PO SCH (08:42)
[2017-01-24] MEDS: fentaNYL 50 MCG/HR PATCH TOP SCH (08:43)
[2017-01-24] MEDS: FENTANYL REMOVAL DOCUMENTATION MISC XX SCH (08:49)
[2017-01-25] MEDS: DOCUSATE SODIUM 100 MG CAP PO SCH ×2 (08:22→20:20)
[2017-01-25] MEDS: PANTOPRAZOLE 40MG TAB (PROTONIX) PO SCH (08:22)
[2017-01-25] MEDS: ACETAMINOPHEN TAB 650MG DOSE (2X325MG) PO PRN (10:32)
[2017-01-25] MEDS: MORPHINE 10MG/0.5ML ORAL CONCENTRATE SOLUTION U/D SL PRN (19:31)
[2017-01-26 09:30] VITALS: BP 139/80
[2017-01-26] MEDS: MORPHINE 10MG/0.5ML ORAL CONCENTRATE SOLUTION U/D SL PRN (10:02)
[2017-01-26] MEDS: PANTOPRAZOLE 40MG TAB (PROTONIX) PO SCH (10:17)
[2017-01-26] MEDS: DOCUSATE SODIUM 100 MG CAP PO SCH ×2 (10:17→21:00)
[2017-01-27] MEDS: FENTANYL REMOVAL DOCUMENTATION MISC XX SCH (09:00)
[2017-01-27] MEDS: MORPHINE 10MG/0.5ML ORAL CONCENTRATE SOLUTION U/D SL PRN (09:03)
[2017-01-27] MEDS: fentaNYL 50 MCG/HR PATCH TOP SCH (09:04)
[2017-01-27] MEDS: DOCUSATE SODIUM 100 MG CAP PO SCH ×2 (10:03→21:00)
[2017-01-27] MEDS: PANTOPRAZOLE 40MG TAB (PROTONIX) PO SCH (10:50)
[2017-01-28] MEDS: MORPHINE 10MG/0.5ML ORAL CONCENTRATE SOLUTION U/D SL PRN (07:00)
[2017-01-28] MEDS: DOCUSATE SODIUM 100 MG CAP PO SCH (09:00)
[2017-01-28] MEDS: PANTOPRAZOLE 40MG TAB (PROTONIX) PO SCH (09:00)
[2017-01-28] MEDS ORDERED: MORP20SO3 SL (10:28)
[2017-01-28] MEDS ORDERED: Scopolamine TD (10:28)
[2017-01-28] MEDS ORDERED: ONDA4TAB5 PO (10:28)
[2017-01-28] MEDS ORDERED: FENT50PA TOP (10:28)
[2017-01-28] MEDS ORDERED: PANT40TA2 PO (10:28)
[2017-01-28] MEDS ORDERED: Acetaminophen Tab PO (10:31)
[2017-01-28] MEDS ORDERED: COLA100C5 PO (10:31)
[2017-01-28] MEDS: ACETAMINOPHEN TAB 650MG DOSE (2X325MG) PO PRN (10:34)
--- NOTE | 2017-01-28 10:46 | DS.PDOC ---
Discharge Summary General Date of Admission Jan 09, 2017 at 21:21 Date of Discharge 01/28/2017 Primary Care Physician: SPIKE MARINA DO Attending Physician: GABY TREJO MD Discharge Summary PROCEDURES PERFORMED DURING STAY: None. ADMITTING DIAGNOSES: 1. Unresponsiveness. 2. Lung CA with brain metastasis. DISCHARGE DIAGNOSES: 1. 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 2. Stage 3 pressure ulcer on the left hip present since admission. 3. Rhabdomyolysis 4. Brain compression of the fourth ventricle 5. Hyponatremia COMPLICATIONS/CHIEF COMPLAINT: Mass, Brain & Rhabdomyolysis. HISTORY OF PRESENT ILLNESS: Mr. Sánchez is a 56-year-old male with a history of metastatic cancer with a lung mass as well as brain mass. The patient as well as his brother, who is his health care proxy, have decided that the family did not want to pursue any surgical options. They did not want to pursue any radiation or chemotherapy. He has been at home. He was in the [facility] approximately 10 days to 2 weeks ago with hyponatremia, rallied back and did go home. Was today though, found unresponsive by his brother when he went over there after the patient had not been answering the phone. Patient was brought to the emergency room. HOSPITAL COURSE: Patient was made comfort measures only upon admission. CBC, CMP, toxicology, and blood gas were performed in the ED. On admission, the only lab work performed was a BMP and CBC, which showed hyponatremia. Following initial emergency department evaluation, he has been receiving pain medication ( please see below) to minimize discomfort. Patient has a confirmed bed at Hospice. Transport has been arranged from [facility] to Hospice. DISCHARGE MEDICATIONS: Please see below. ALLERGIES: Please see below. PHYSICAL EXAMINATION ON DISCHARGE: VITAL SIGNS: Please see below. GENERAL: Elderly-appearing male lying supine in bed. Cachetic appearing. Appears older than stated age. Alert but not oriented to time. HEENT: Atraumatic, normocephalic. EOMI. NECK: Supple, trachea midline, no lymphadenopathy appreciated CARDIOVASCULAR: Normal S1/S2, regular rate, no noted rubs, murmurs, or gallops. RESPIRATORY: Lung sounds clear on the left; diminish on the right middle and base lobes. ABDOMINAL: Soft, non-tender, no peritoneal signs, normoactive bowel sounds EXTREMITIES: No noted peripheral edema, peripheral pulses are equal, symmetrical , +2, several areas of excoriation noted on the upper extremities NEUROLOGICAL: Unable to move right arm; spastic movements of right arm; unable to lift right leg; unable to turn head to the right PSYCHOLOGICAL: Flat affect LABORATORY DATA: Please see below. IMAGING: Head CT without contrast Impression: Findings consistent with recurrent mass in the cerebellum posterior fossa with surrounding vasogenic edema compressing the fourth ventricle. There is ventriculomegaly, but this is unchanged. Chest X-Ray Impression: No active disease. Hip/Pelvis X-Ray Impression: Old healed left femur fracture. No acute fracture noted. Brain MRI Impression: 1. There is slight interval increase in size of the enhancing mass in the right posterior fossa is prior study, consistent with neoplasm. 2. Extensive vasogenic edema and mass effect in the right posterior fossa is stable. 3. Mild hydrocephalus is stable. 4. Periventricular edema is unchanged. 5. There is no new evidence of infarct or hemorrhage. PROGNOSIS: Hospice; poor. ACTIVITY: As tolerated. DIET: Pureed diet. DISCHARGE PLAN: Hospice DISPOSITION: Hospice. DISCHARGE INSTRUCTIONS: 1. Comfort measures only. 2. Manage pain as necessary to minimize discomfort. ITEMS TO FOLLOWUP ON ON OUTPATIENT: 1. Comfort measures; defer to hospice. DISCHARGE CONDITION: Stable. TIME SPENT ON DISCHARGE: Greater than 45 minutes. Vital Signs/I&Os Vital Signs Date Time Temp Pulse Resp B/P (MAP) Pulse Ox O2 Delivery O2 Flow Rate FiO2 01/28/17 07:00 17 94 Room Air 01/26/17 09:30 98.2 79 139/80 (99) I&O- Last 24 Hours up to 6 AM 01/29/17 05:59 Intake Total 0 ml Output Total 150 ml Balance -150 ml Discharge Medications Scheduled Docusate Sodium (Colace) 100 Mg Cap, 100 MG PO BID Fentanyl (Fentanyl) 50 Mcg Tdsy, 50 MCG TOP Q72H Pantoprazole Sodium (Pantoprazole Sodium) 40 Mg Tab, 40 MG PO DAILY Scheduled PRN Atropine Sulfate (Atropine Sulfate) 1 % Shawna, 1-2 DROP PO Q2H PRN for TERMINAL SECRETIONS Use sublingually if unable to swallow MDD = 36 drops Lorazepam (Lorazepam) 0.5 Mg Tab, 0.5 MG PO Q4HP PRN for ANXIETY/AGITATION Use sublingually if unable to swallow Morphine Sulfate (Morphine Sulfate) 100 Mg/5 Ml Shawna, 0.25-1 ML PO Q2H PRN for PAIN OR DYSPNEA Use sublingually if unable to swallow Ondansetron HCl (Ondansetron HCl) 4 Mg Tab, 4 MG PO Q6HP PRN for NAUSEA OR VOMITING [Acetaminophen Tab] 325 MG/TAB TAB, 650 MG PO Q4HP PRN for MILD PAIN OR FEVER Allergies Coded Allergies: No Known Allergies (Unverified , 07/20/16) SHELDON CORONADO Jan 28, 2017 10:06 GABY TREJO MD Feb 04, 2017 12:13
[2017-01-28] MEDS ORDERED: MORP20SO3 PO (10:50)
[2017-01-28] MEDS ORDERED: LORA0.5T11 PO (10:50)
[2017-01-28] MEDS ORDERED: ATRO1OPD PO (10:50)
== END 2017-01-28 12:07 | disposition hospice, inpatient (51) | DRG 41 ==
LOC: EDBD 12:55 → M ED 12:55 → M ED INP 21:21 → M PCU 23:20 → M MSPAV 01-10 17:20
PROVIDERS: ADMIT Internal Medicine; ATTEND Internal Medicine Nephrology
DX: C79.31 Secondary malignant neoplasm of brain (principal); G93.5 Compression of brain; G93.6 Cerebral edema; G91.9 Hydrocephalus, unspecified; L89.223 Pressure ulcer of left hip, stage 3; C34.90 Malignant neoplasm of unspecified part of unspecified bronchus or lung; M62.82 Rhabdomyolysis; E87.1 Hypo-osmolality and hyponatremia; E87.5 Hyperkalemia; Z51.5 Encounter for palliative care; Z66 Do not resuscitate; F17.210 Nicotine dependence, cigarettes, uncomplicated; Z79.891 Long term (current) use of opiate analgesic